=== PATIENT | male | born 1970 | race American Indian/Alaskan Native ===

== ENCOUNTER 2018-01-11 20:49 | Emergency (ER) | payer OTHER, SELFPAY ==
[2018-01-11 20:57] VITALS: BP 123/79; PULSE 96; RESP 18; TEMP 37.4; O2SAT 99; BMI 46.7
--- NOTE | 2018-01-11 21:05 | DI.RAD.S_ITS ---
PROCEDURE: XR RIBS RT MIN 3V W CXR 1V INDICATIONS: Pain injury anterior TECHNIQUE: 5 views of the left ribs were acquired, along with a single view chest. COMPARISON: None. FINDINGS: Surgical changes and devices: None. Bones and chest wall: No fractures or dislocations. No suspicious bony lesions. Overlying soft tissues appear unremarkable. Lungs and pleura: No pleural effusions or pneumothorax. Lungs appear clear. Mediastinum: Mediastinal contours appear normal. Heart size is normal. IMPRESSION: No acute cardiopulmonary findings. No displaced rib fractures visualized. Dictated by: Anna Ricks M.D. on 01/11/2018 at 21:46 Approved by: Anna Ricks M.D. on 01/11/2018 at 21:47
--- NOTE | 2018-01-11 21:07 | PC.NURSE ---
Respiratory assessment limited by body habitus. Pt reports left rib pain, worse with inspiration, with [place]- resolves with rest. pt reports he fell against the side of his boat today and injured his rib. Area is tender to palp. Deformity palpated.
[2018-01-11] MEDS: KETOROLAC 60 MG/2 ML VIAL IM (21:17)
--- NOTE | 2018-01-11 21:29 | ED_ITS ---
HPI - Back Pain/Injury General Chief Complaint: Back Pain/Injury Stated Complaint: RIB pain, heard a crunch sound today Time Seen by Provider: 01/11/18 20:59 Source: patient and RN notes reviewed Mode of arrival: ambulatory History of Present Illness HPI Narrative: Patient is a 48-year-old male who presents with left-sided rib pain. He was fishing today when he leaned over the boat pulling up a 25 lb [place] when he heard something pop. It hurts in 1 space every time he moves or breathes. No shortness of breath but does hurt when he takes a deep breath. Onset (ago): hour(s) Duration: constant Severity: moderate Quality: sharp Radiation: none Exacerbating factors: movement Related Data Home Medications Medication Instructions Recorded Confirmed lisinopril 5 mg PO QDAY #0 03/19/17 simvastatin 10 mg PO QDAY #0 03/19/17 insulin aspart U-100 [Novolog 25 unit SQ BID #0 09/02/17 Flexpen U-100 Insulin] insulin glargine [Lantus Solostar 30 unit SQ BID #0 09/02/17 U-100 Insulin] loratadine 10 mg PO QDAY #0 09/02/17 metformin [Glucophage XR] 3 tab PO QDAY #0 09/02/17 Previous Rx's Medication Instructions Recorded clindamycin HCl 300 mg PO QID #40 cap 11/10/17 hydrocodone-acetaminophen [[place]] 1 - 2 tab PO Q6HP PRN #10 tab 11/10/17 Allergies Allergy/AdvReac Type Severity Reaction Status Date / Time celecoxib [CELECOXIB] AdvReac Mild MADE MY Verified 01/11/18 20:58 HEART HURT Review of Systems Review of Systems All systems reviewed & are unremarkable except as noted in HPI and below Constitutional Denies chills, Denies fever(s), Denies lethargy and Denies weakness Cardiovascular Denies chest pain, Denies irregular heart rhythm, Denies lightheadedness, Denies palpitations, Denies dyspnea on exertion and Denies orthopnea Respiratory Reports as per HPI, Denies excessive phlegm production, Reports pain on inspiration and Denies dyspnea on exertion Gastrointestinal Gastrointestinal: Denies abdominal pain, Denies change in bowel habits, Denies diarrhea, Denies nausea and Denies vomiting Musculoskeletal Denies back pain, Denies muscle weakness, Denies numbness and Denies tingling Neurologic Denies numbness, Denies tingling and Denies weakness Endocrine Denies palpitations Exam Const General: cooperative and well developed Nutritional Appearance: obese Orientation: alert, awake, oriented x3 and not confused Chest Chest: No crepitus, localized rib tenderness with anteroposterior compression ( Just under the nipple) and No mass Breast inspection: normal inspection of the breasts Resp Effort & Inspection: normal respiratory effort, able to speak in complete sentences, no respiratory distress and no use of accessory muscles Auscultation: clear to auscultation bilaterally, no rales, no rhonchi and no wheezes Cardio Rate: regular rate Rhythm: regular rhythm Heart Sounds: no click, no gallops, no murmurs and no rubs Pulses: normal peripheral pulses Skin General: no rashes or lesions noted, No jaundice and No petechiae Neuro General: alert, oriented x3, gait normal and no focal motor deficits Cranial Nerves: CN's II-XI intact bilaterally Speech: speech normal Motor: strength 5/5 throughout Sensory Exam: no sensory deficits noted MDM - Back Pain/Injury MDM Narrative Medical decision making narrative: Patient had a distinct instance where he started having left-sided rib pain worse with movement. He x-ray is negative. Thought to be traumatic and rib sprain or contusion rather than cardiac. Imaging Data rib x ray: Radiologist's impression: PROCEDURE: XR RIBS RT MIN 3V W CXR 1V INDICATIONS: Pain injury anterior TECHNIQUE: 5 views of the left ribs were acquired, along with a single view chest. COMPARISON: None. FINDINGS: Surgical changes and devices: None. Bones and chest wall: No fractures or dislocations. No suspicious bony lesions. Overlying soft tissues appear unremarkable. Lungs and pleura: No pleural effusions or pneumothorax. Lungs appear clear. Mediastinum: Mediastinal contours appear normal. Heart size is normal. IMPRESSION: No acute cardiopulmonary findings. No displaced rib fractures visualized. Course Orders Ordered: ED Orders 01/11/18 21:05 XR ribs RT min 3V w CXR1V Stat Discontinued Medications Ketorolac Tromethamine (Toradol) 60 mg IM NOW ONE Stop: 01/11/18 21:06 Last Admin: 01/11/18 21:17 Dose: 60 mg Last Vital Signs Temp 99.4 F 01/11/18 20:57 Pulse 96 H 01/11/18 22:14 Resp 18 01/11/18 22:14 BP 128/85 H 01/11/18 22:14 Pulse Ox 98 01/11/18 22:14 Discharge Plan Departure Patient Disposition: Home, Self-Care Clinical Impression: Contusion of rib on left side Discharge Date/Time: 01/11/18 22:15 Interventions: ED Discharge Assessment Last Done: 01/11/18 22:14 Instructions: DI for Rib Contusion Activity Restrictions/Additional Instructions: *You have been diagnosed with rib contusion *What to do: Try ice or heat, increase activity as tolerated *Take medications as directed *Follow up with your primary care provider in 2-3 days *Return to ER if you should have increasing chest pain, shortness of breath or any new, worsening or concerning symptoms Prescriptions: No Action simvastatin 10 MG tablet 10 mg PO QDAY Qty: 0 RF: 0 lisinopril 5 MG tablet 5 mg PO QDAY Qty: 0 RF: 0 loratadine 10 MG tablet 10 mg PO QDAY Qty: 0 RF: 0 insulin aspart U-100 [Novolog Flexpen U-100 Insulin] 100 UNIT/1 ML insulin pen 25 unit SQ BID Qty: 0 RF: 0 metformin [Glucophage XR] 750 MG tablet extended release 24 hr 3 tab PO QDAY Qty: 0 RF: 0 insulin glargine [Lantus Solostar U-100 Insulin] 100 UNIT/1 ML insulin pen 30 unit SQ BID Qty: 0 RF: 0 clindamycin HCl 300 MG capsule 300 mg PO QID Qty: 40 RF: 0 hydrocodone-acetaminophen [[place]] 5 MG/325 MG tablet 1 - 2 tab PO Q6HP PRNQty: 10 RF: 0 Referrals: Yvette Ellis PA-C [Primary Care Provider] -
[2018-01-11 22:14] VITALS: BP 128/85; PULSE 96; RESP 18; O2SAT 98
== END 2018-01-11 22:15 | disposition home or self-care (01) ==
PROVIDERS: Emergency Provider Emergency Medicine; Family Provider Physician Assistant; PCP Physician Assistant
DX: S20.219A Contusion of unspecified front wall of thorax, initial encounter (principal); X58.XXXA Exposure to other specified factors, initial encounter
CPT/HCPCS: 71101; 96372; 99282; 99283; J1885

== ENCOUNTER 2018-07-05 18:37 | Emergency (ER) | payer OTHER, SELFPAY ==
--- NOTE | 2018-07-05 18:47 | ED.GENADULT ---
HPI - General Adult General Stated complaint: wants his sugars checked out Time Seen by Provider: 07/05/18 18:46 Related Data Home Medications Medication Instructions Recorded Confirmed lisinopril 5 mg PO QDAY #0 03/19/17 simvastatin 10 mg PO QDAY #0 03/19/17 insulin aspart U-100 [Novolog 25 unit SQ BID #0 09/02/17 Flexpen U-100 Insulin] insulin glargine [Lantus Solostar 30 unit SQ BID #0 09/02/17 U-100 Insulin] loratadine 10 mg PO QDAY #0 09/02/17 metformin [Glucophage XR] 3 tab PO QDAY #0 09/02/17 Previous Rx's Medication Instructions Recorded clindamycin HCl 300 mg PO QID #40 cap 11/10/17 hydrocodone-acetaminophen [[place]] 1 - 2 tab PO Q6HP PRN #10 tab 11/10/17 Allergies Allergy/AdvReac Type Severity Reaction Status Date / Time celecoxib [CELECOXIB] AdvReac Mild MADE MY Verified 01/11/18 20:58 HEART HURT Discharge Plan Departure Prescriptions: No Action simvastatin 10 MG tablet 10 mg PO QDAY Qty: 0 RF: 0 lisinopril 5 MG tablet 5 mg PO QDAY Qty: 0 RF: 0 loratadine 10 MG tablet 10 mg PO QDAY Qty: 0 RF: 0 insulin aspart U-100 [Novolog Flexpen U-100 Insulin] 100 UNIT/1 ML insulin pen 25 unit SQ BID Qty: 0 RF: 0 metformin [Glucophage XR] 750 MG tablet extended release 24 hr 3 tab PO QDAY Qty: 0 RF: 0 insulin glargine [Lantus Solostar U-100 Insulin] 100 UNIT/1 ML insulin pen 30 unit SQ BID Qty: 0 RF: 0 clindamycin HCl 300 MG capsule 300 mg PO QID Qty: 40 RF: 0 hydrocodone-acetaminophen [[place]] 5 MG/325 MG tablet 1 - 2 tab PO Q6HP PRNQty: 10 RF: 0
[2018-07-05 18:49] VITALS: BP 131/97; PULSE 92; RESP 18; TEMP 37.1; O2SAT 98; BMI 46.7
--- NOTE | 2018-07-05 18:50 | ED.GENADULT ---
HPI - General Adult <Princess Meza PA-C - Last Filed: 07/05/18 21:57> General Chief complaint: Diabetic Problem Stated complaint: wants his sugars checked out Time Seen by Provider: 07/05/18 18:46 Source: patient Mode of arrival: ambulatory Limitations: no limitations History of Present Illness HPI narrative: Tis 48 year old male with insulin-dependent diabetes states he came in to have his blood sugars checked today at his 's insistence. He states that he has had diabetes for about 8 years, generally well controlled with blood sugars in the 160s-190s range on metformin and insulin. He states that after he got his flu shot 2 weeks ago, he began have itchy throat, congestion and cough along with fatigue and elevated blood sugars despite taking his usual medications. He states his blood sugars have generally been in the 300 range at home. He states that the upper respiratory symptoms have gotten better, however the fatigue has not, and today his blood sugar at home was 578 and his wanted him to get this checked. He states that he has been eating and drinking normally. He states he has had urinary frequency and it seems like it is more difficult to read at times. He states that in the last couple of weeks he has occasionally felt like he has a knot in his abdomen, no nausea or vomiting, no pain currently. He denies any chest pain, dyspnea, new pain or swelling in the extremities, or other new complaints on systems review Related Data Home Medications Medication Instructions Recorded Confirmed lisinopril 5 mg PO QDAY #0 03/19/17 simvastatin 10 mg PO QDAY #0 03/19/17 insulin aspart U-100 [Novolog 25 unit SQ BID #0 09/02/17 Flexpen U-100 Insulin] insulin glargine [Lantus Solostar 30 unit SQ BID #0 09/02/17 U-100 Insulin] loratadine 10 mg PO QDAY #0 09/02/17 metformin [Glucophage XR] 3 tab PO QDAY #0 09/02/17 Previous Rx's Medication Instructions Recorded clindamycin HCl 300 mg PO QID #40 cap 11/10/17 hydrocodone-acetaminophen [[place]] 1 - 2 tab PO Q6HP PRN #10 tab 11/10/17 Allergies Allergy/AdvReac Type Severity Reaction Status Date / Time celecoxib [CELECOXIB] AdvReac Mild MADE MY Verified 01/11/18 20:58 HEART HURT Review of Systems <Princess Meza PA-C - Last Filed: 07/05/18 21:57> Review of Systems All systems reviewed & are unremarkable except as noted in HPI and below PFSH <Princess Meza PA-C - Last Filed: 07/05/18 21:57> Comment: previous heavy ETOH, none currently, denies street drugs Exam <Princess Meza PA-C - Last Filed: 07/05/18 21:57> Narrative Exam Narrative: GENERAL APPEARANCE: Patient sitting comfortably, in no distress. HEAD: No sinus TTP. EYES: PERRL, EOMI. EARS: Normal auditory canals, TMS intact with dull light reflexes. ORAL CAVITY: Normal oropharynx. THROAT: PND noted NECK/THYROID: Neck supple, full range of motion, no cervical lymphadenopathy. LUNGS: Clear to auscultation bilaterally, no cough on exam. HEART: RRR without murmur, nl S1, S2, no S3 or S4. ABDOMEN: Soft, nontender, nondistended, +bowel sounds x4 quadrants EXTREMITIES: No edema, no calf tenderness Initial Vital Signs Initial Vital Signs: Vital Signs Temperature 98.8 F 07/05/18 18:49 Pulse Rate 92 H 07/05/18 18:49 Respiratory Rate 18 07/05/18 18:49 Blood Pressure 131/97 H 07/05/18 18:49 Pulse Oximetry 98 07/05/18 18:49 <Jordy Ledezma DO - Last Filed: 07/05/18 22:33> Initial Vital Signs Initial Vital Signs: Vital Signs Temperature 98.8 F 07/05/18 18:49 Pulse Rate 92 H 07/05/18 18:49 Respiratory Rate 18 07/05/18 18:49 Blood Pressure 131/97 H 07/05/18 18:49 Pulse Oximetry 98 07/05/18 18:49 Course <AMANDA Cordero Last Filed: 07/05/18 21:57> Additional Information: Patient does not appear to be in DKA, and is feeling significantly improved after fluids. He normally has reasonably controlled blood sugars but they have been elevated in the setting of this upper respiratory infection for the last couple of weeks. The respiratory symptoms are improved. He will continue his usual medicines and contact his PCP 1st thing in the morning to arrange follow-up tomorrow. He agrees to return if feeling acutely worse again Orders Ordered: ED Orders 07/05/18 19:20 Basic Metabolic Panel Stat Complete Blood Count AUTO DIFF Stat Ketones (Beta-Hydroxybutyrate) Stat Discontinued Medications Sodium Chloride (Normal Saline 0.9%) 1,000 mls @ 1,000 mls/hr IV BOLUS ONE Stop: 07/05/18 19:47 Last Infusion: 07/05/18 20:33 Dose: 0 mls/hr Admin: 07/05/18 19:26 Dose: 1,000 mls/hr Sodium Chloride (Normal Saline 0.9%) 1,000 mls @ 1,000 mls/hr IV BOLUS ONE Stop: 07/05/18 19:51 Last Admin: 07/05/18 20:33 Dose: 1,000 mls/hr Vital Signs - 8 hr 07/05/18 18:49 07/05/18 21:10 Temperature 98.8 F Pulse Rate 92 H 78 Respiratory Rate 18 18 Blood Pressure 131/97 H Blood Pressure [Left Arm] 146/98 H Pulse Oximetry 98 99 <Jordy Ledezma DO - Last Filed: 07/05/18 22:33> Orders Ordered: ED Orders 07/05/18 19:20 Basic Metabolic Panel Stat Complete Blood Count AUTO DIFF Stat Ketones (Beta-Hydroxybutyrate) Stat Discontinued Medications Sodium Chloride (Normal Saline 0.9%) 1,000 mls @ 1,000 mls/hr IV BOLUS ONE Stop: 07/05/18 19:47 Last Infusion: 07/05/18 20:33 Dose: 0 mls/hr Admin: 07/05/18 19:26 Dose: 1,000 mls/hr Sodium Chloride (Normal Saline 0.9%) 1,000 mls @ 1,000 mls/hr IV BOLUS ONE Stop: 07/05/18 19:51 Last Admin: 07/05/18 20:33 Dose: 1,000 mls/hr Vital Signs - 8 hr 07/05/18 18:49 07/05/18 21:10 Temperature 98.8 F Pulse Rate 92 H 78 Respiratory Rate 18 18 Blood Pressure 131/97 H Blood Pressure [Left Arm] 146/98 H Pulse Oximetry 98 99 Medical Decision Making <Princess Meza PA-C - Last Filed: 07/05/18 21:57> Lab Data Lab results reviewed: Yes I reviewed the patient's lab results. Result diagrams: 07/05/18 19:20 07/05/18 19:20 Lab Results 07/05/18 07/05/18 Range/Units 19:20 19:20 WBC 6.9 (4.5-11.0) X10^3/uL RBC 5.80 (4.5-5.9) X10^6/uL Hgb 16.1 (13.5-17.5) g/dL Hct 46.8 (41-53) % MCV 80.7 (80-100) fL MCH 27.8 (26-34) PG MCHC 34.4 (30-36) % RDW 14.3 (11.6-14.8) % Plt Count 239 (150-400) X10^3/uL Neut % (Auto) 70.3 (50-75) % Lymph % (Auto) 21.7 L (25-40) % [place] % (Auto) 5.7 (3-14) % Eos % (Auto) 1.5 L (2-4) % Baso % (Auto) 0.8 (0-2) % Neut # (Auto) 4800 (7514-9428) /uL Sodium 136 L (137-145) mmol/L Potassium 3.8 (3.4-5.1) mmol/L Chloride 97 L (98-107) mmol/L Carbon Dioxide 24 (22-32) mmol/L BUN 13 (9-20) mg/dL Creatinine 0.70 (0.66-1.25) mg/dL Estimated GFR > 60.0 (>60) mL/min BUN/Creatinine Ratio 18.6 (6-22) Glucose 533 H* (70-100) mg/dL Calcium 9.2 (8.4-10.2) mg/dL Ketones 0.19 (<0.27) mmol/L Point of Care Testing Glucose POC 339 Urine Dip Bedside Urine Glucose 1000 mg/dl Bedside Urine Bilirubin - Negative Bedside Urine Ketone - Negative Urine Specific [place] 1.010 Bedside Urine Occult Blood - Negative Bedside Urine pH 6.0 Bedside Urine Protein - Negative Bedside Urine Urobilinogen - Negative Bedside Urine Nitrite - Negative Bedside Urine Leukocytes - Negative Esterase Point of care testing: Point of Care Testing Glucose POC 339 Urine Dip Bedside Urine Glucose 1000 mg/dl Bedside Urine Bilirubin - Negative Bedside Urine Ketone - Negative Urine Specific [place] 1.010 Bedside Urine Occult Blood - Negative Bedside Urine pH 6.0 Bedside Urine Protein - Negative Bedside Urine Urobilinogen - Negative Bedside Urine Nitrite - Negative Bedside Urine Leukocytes - Negative Esterase <Jordy Ledezma, DO - Last Filed: 07/05/18 22:33> Lab Data Lab Results 07/05/18 07/05/18 Range/Units 19:20 19:20 WBC 6.9 (4.5-11.0) X10^3/uL RBC 5.80 (4.5-5.9) X10^6/uL Hgb 16.1 (13.5-17.5) g/dL Hct 46.8 (41-53) % MCV 80.7 (80-100) fL MCH 27.8 (26-34) PG MCHC 34.4 (30-36) % RDW 14.3 (11.6-14.8) % Plt Count 239 (150-400) X10^3/uL Neut % (Auto) 70.3 (50-75) % Lymph % (Auto) 21.7 L (25-40) % [place] % (Auto) 5.7 (3-14) % Eos % (Auto) 1.5 L (2-4) % Baso % (Auto) 0.8 (0-2) % Neut # (Auto) 4800 (3931-9455) /uL Sodium 136 L (137-145) mmol/L Potassium 3.8 (3.4-5.1) mmol/L Chloride 97 L (98-107) mmol/L Carbon Dioxide 24 (22-32) mmol/L BUN 13 (9-20) mg/dL Creatinine 0.70 (0.66-1.25) mg/dL Estimated GFR > 60.0 (>60) mL/min BUN/Creatinine Ratio 18.6 (6-22) Glucose 533 H* (70-100) mg/dL Calcium 9.2 (8.4-10.2) mg/dL Ketones 0.19 (<0.27) mmol/L Point of Care Testing Glucose POC 339 Urine Dip Bedside Urine Glucose 1000 mg/dl Bedside Urine Bilirubin - Negative Bedside Urine Ketone - Negative Urine Specific [place] 1.010 Bedside Urine Occult Blood - Negative Bedside Urine pH 6.0 Bedside Urine Protein - Negative Bedside Urine Urobilinogen - Negative Bedside Urine Nitrite - Negative Bedside Urine Leukocytes - Negative Esterase Point of care testing: Point of Care Testing Glucose POC 339 Urine Dip Bedside Urine Glucose 1000 mg/dl Bedside Urine Bilirubin - Negative Bedside Urine Ketone - Negative Urine Specific [place] 1.010 Bedside Urine Occult Blood - Negative Bedside Urine pH 6.0 Bedside Urine Protein - Negative Bedside Urine Urobilinogen - Negative Bedside Urine Nitrite - Negative Bedside Urine Leukocytes - Negative Esterase Discharge Plan Departure Patient Disposition: Home Clinical Impression: Hyperglycemia without ketosis Discharge Date/Time: 07/05/18 21:45 Interventions: ED Discharge Assessment Last Done: 07/05/18 21:44 Instructions: DI for Hyperglycemia -- Adult Activity Restrictions/Additional Instructions: Your blood sugars were significantly elevated today, though better after you had fluids. This is not uncommon with an acute illness such as the respiratory infection that you have had recently. Please continue your usual diabetes medicines tonight, drink plenty of fluids, and call your PCP office 1st thing in the morning. Let them know that you were seen in the emergency room with very high blood sugars in the 500 range, and need to be seen for follow-up tomorrow. You may need adjustments in your insulin and will need monitoring of these changes as you continued to feel better. You should return here as we talked about if you are feeling acutely worse again in the interim Prescriptions: No Action simvastatin 10 MG tablet 10 mg PO QDAY Qty: 0 RF: 0 lisinopril 5 MG tablet 5 mg PO QDAY Qty: 0 RF: 0 loratadine 10 MG tablet 10 mg PO QDAY Qty: 0 RF: 0 insulin aspart U-100 [Novolog Flexpen U-100 Insulin] 100 UNIT/1 ML insulin pen 25 unit SQ BID Qty: 0 RF: 0 metformin [Glucophage XR] 750 MG tablet extended release 24 hr 3 tab PO QDAY Qty: 0 RF: 0 insulin glargine [Lantus Solostar U-100 Insulin] 100 UNIT/1 ML insulin pen 30 unit SQ BID Qty: 0 RF: 0 clindamycin HCl 300 MG capsule 300 mg PO QID Qty: 40 RF: 0 hydrocodone-acetaminophen [[place]] 5 MG/325 MG tablet 1 - 2 tab PO Q6HP PRNQty: 10 RF: 0 Referrals: Rachael Charles MD [Non-Staff] - <Jordy Ledezma DO - Last Filed: 07/05/18 22:33> Cosign ED Attending Costatyanaature Attestation: I was available for consultation during this patient's emergency department encounter
[2018-07-05] MEDS: SODIUM CHLORIDE 0.9% 1,000 ML 1000 ML IV ×2 (19:26→20:33)
[2018-07-05 19:27] LABS: Add Manual Diff / Slide Review NO; Basophils Percent Auto 0.8 % (0-2); Eosinophils Percent Auto 1.5 % (2-4); Hematocrit 46.8 % (41-53); Hemoglobin 16.1 g/dL (13.5-17.5); Lymphocytes Percent Auto 21.7 % (25-40); Mean Corpuscular HGB Conc 34.4 % (30-36); Mean Corpuscular Hemoglobin 27.8 PG (26-34); Mean Corpuscular Volume 80.7 fL (80-100); Monocytes Percent Auto 5.7 % (3-14); Neutrophils Absolute Auto 4800 /uL (3000-5900); Neutrophils Percent Auto 70.3 % (50-75); Platelet Count 239 X10^3/uL (150-400); Red Cell Distribution Width 14.3 % (11.6-14.8); White Blood Cell Count 6.9 X10^3/uL (4.5-11.0)
[2018-07-05 19:36] LABS: BUN Creatinine Ratio 18.6 (6-22); Blood Urea Nitrogen 13 mg/dL (9-20); Calcium 9.2 mg/dL (8.4-10.2); Carbon Dioxide 24 mmol/L (22-32); Chloride 97 mmol/L (98-107); Estimated Glomerular Filt Rate > 60.0 mL/min (>60); Potassium 3.8 mmol/L (3.4-5.1); Sodium 136 mmol/L (137-145)
[2018-07-05 19:39] LABS: Ketones (Beta-Hydroxybutyrate) 0.19 mmol/L (<0.27)
[2018-07-05 19:44] LABS: HEMOLYSIS 25 (0-50)
[2018-07-05 19:46] LABS: Glucose 533 mg/dL (70-100)
--- NOTE | 2018-07-05 19:58 | PC.NURSE ---
Pt directed to keep arm straight. only 200 of 1000ml infused in last hour. Pt and Pt daughter aware and will keep arm straight
[2018-07-05 21:10] VITALS: BP 146/98; PULSE 78; RESP 18; O2SAT 99
== END 2018-07-05 21:45 | disposition home or self-care (01) ==
PROVIDERS: Emergency Medicine; Emergency Provider Internal Medicine; Family Provider Physician Assistant; PCP Physician Assistant
DX: E10.65 Type 1 diabetes mellitus with hyperglycemia (principal); Z79.4 Long term (current) use of insulin
CPT/HCPCS: 36591; 80048; 81003; 82009; 82962; 85025; 96360; 99283; 99284

== ENCOUNTER 2018-07-19 11:17 | Emergency (ER) | payer OTHER, SELFPAY ==
[2018-07-19 11:31] VITALS: BP 125/86; PULSE 88; RESP 18; TEMP 37; O2SAT 97; BMI 48.1
--- NOTE | 2018-07-19 12:05 | ED_ITS ---
HPI - URI/Sore Throat <Princess Meza PA-C - Last Filed: 07/19/18 18:59> General Chief Complaint: Upper Respiratory Symptoms Stated Complaint: 4day sore throat, difficulty swallowing, body ache Time Seen by Provider: 07/19/18 12:03 Source: patient Mode of arrival: ambulatory Limitations: no limitations History of Present Illness HPI Narrative: This 48-year-old male complains of 5 day history of a scratchy throat which has become increasingly sore to the point he is having a hard time swallowing solids. He states that it also hurts his ears to swallow. He states that 4 days ago he developed chills, shakes, and body aches along with fatigue. He has not taken his temperature. He states that he has some nasal congestion but no sinus pain. He has started to get a little bit of dry cough, denies any wheeze or dyspnea. He denies any known exposures aside from someone with the flu which was last month. He did get a flu vaccine several weeks ago. He states that he felt slightly better yesterday aside from the sore throat which has persisted and gotten worse. He admits that he has not checked his glucose in the last 3 days, states he has been taking his medicines. He last checked his glucose night and was 378. He admits that he has not followed up with his PCP since last seen here. Related Data Home Medications Medication Instructions Recorded Confirmed lisinopril 5 mg PO QDAY #0 03/19/17 simvastatin 10 mg PO QDAY #0 03/19/17 insulin aspart U-100 [Novolog 25 unit SQ BID #0 09/02/17 Flexpen U-100 Insulin] insulin glargine [Lantus Solostar 30 unit SQ BID #0 09/02/17 U-100 Insulin] loratadine 10 mg PO QDAY #0 09/02/17 metformin [Glucophage XR] 3 tab PO QDAY #0 09/02/17 Previous Rx's Medication Instructions Recorded clindamycin HCl 300 mg PO QID #40 cap 11/10/17 hydrocodone-acetaminophen [[place]] 1 - 2 tab PO Q6HP PRN #10 tab 11/10/17 amoxicillin 500 mg PO Q12H #20 cap 07/19/18 Allergies Allergy/AdvReac Type Severity Reaction Status Date / Time celecoxib [CELECOXIB] AdvReac Mild MADE MY Verified 07/19/18 11:35 HEART HURT Review of Systems <Princess Meza PA-C - Last Filed: 07/19/18 18:59> Review of Systems All systems reviewed & are unremarkable except as noted in HPI and below Exam <Princess Meza PA-C - Last Filed: 07/19/18 18:59> Narrative Exam Narrative: GENERAL APPEARANCE: Patient sitting comfortably, in no distress. HEAD: No sinus TTP. EYES: PERRL, EOMI. EARS: Normal auditory canals, TMS intact, both are retracted with mild erythema ORAL CAVITY: Normal oropharynx. THROAT: Erythematous without exudate NECK/THYROID: Neck supple, full range of motion, no cervical lymphadenopathy. LUNGS: Clear to auscultation bilaterally, no cough on exam. HEART: RRR without murmur, nl S1, S2, no S3 or S4. EXTREMITIES: No edema, no calf tenderness DERMATOLOGIC: No exanthem Initial Vital Signs Initial Vital Signs: Vital Signs Temperature 98.6 F 07/19/18 11:31 Pulse Rate 88 07/19/18 11:31 Respiratory Rate 18 07/19/18 11:31 Blood Pressure 125/86 07/19/18 11:31 Pulse Oximetry 97 07/19/18 11:31 <Holly Russell MD - Last Filed: 07/20/18 08:02> Initial Vital Signs Initial Vital Signs: Vital Signs Temperature 98.6 F 07/19/18 11:31 Pulse Rate 88 07/19/18 11:31 Respiratory Rate 18 07/19/18 11:31 Blood Pressure 125/86 07/19/18 11:31 Pulse Oximetry 97 07/19/18 11:31 Course <Princess Meza PA-C - Last Filed: 07/19/18 18:59> Orders Ordered: ED Orders 07/19/18 11:57 Strep Grp A by PCR Rapid Stat Vital Signs - 8 hr 07/19/18 11:31 07/19/18 12:41 Temperature 98.6 F Pulse Rate 88 96 H Respiratory Rate 18 16 Blood Pressure 125/86 Blood Pressure [Right Arm] 130/93 H Pulse Oximetry 97 98 <Holly Russell MD - Last Filed: 07/20/18 08:02> Orders Ordered: ED Orders 07/19/18 11:57 Strep Grp A by PCR Rapid Stat Vital Signs - 8 hr 07/19/18 11:31 07/19/18 12:41 Temperature 98.6 F Pulse Rate 88 96 H Respiratory Rate 18 16 Blood Pressure 125/86 Blood Pressure [Right Arm] 130/93 H Pulse Oximetry 97 98 MDM - URI/Sore Throat <Princess Meza PA-C - Last Filed: 07/19/18 18:59> Lab Data Attestation: I reviewed the patient's lab results. Point of Care Testing Rapid Strep A Positive Glucose POC 246 <Holly Russell MD - Last Filed: 07/20/18 08:02> Lab Data Point of Care Testing Rapid Strep A Positive Glucose POC 246 Discharge Plan Departure Patient Disposition: Home Clinical Impression: Strep throat, Uncontrolled diabetes mellitus Discharge Date/Time: 07/19/18 12:42 Interventions: ED Discharge Assessment Last Done: 07/19/18 12:42 Instructions: DI for Strep Throat Activity Restrictions/Additional Instructions: Your test for strep throat was positive today. This is a bacterial infection that needs treatment with antibiotics. Please go pick these up and take the 1st dose immediately. Please avoid close contacts and work until you have been on antibiotics for 48 hr and start to feel better. You should return if you have acutely worsening symptoms such as feeling like your throat is so swollen that you cannot breathe or manage your saliva. Please take your usual over-the- counter pain medicine as needed and you can add sugar free lozenges or sprays to help with your throat. As we talked about again, it is extremely important that you get back to your primary care provider for follow-up on your diabetes and blood sugars. Please call 1st thing tomorrow and arrange a follow-up, and monitor your blood sugars in the interim to review at that appointment. Prescriptions: New amoxicillin 500 mg capsule 500 mg PO Q12H Qty: 20 RF: 0 No Action simvastatin 10 MG tablet 10 mg PO QDAY Qty: 0 RF: 0 lisinopril 5 MG tablet 5 mg PO QDAY Qty: 0 RF: 0 loratadine 10 MG tablet 10 mg PO QDAY Qty: 0 RF: 0 insulin aspart U-100 [Novolog Flexpen U-100 Insulin] 100 UNIT/1 ML insulin pen 25 unit SQ BID Qty: 0 RF: 0 metformin [Glucophage XR] 750 MG tablet extended release 24 hr 3 tab PO QDAY Qty: 0 RF: 0 insulin glargine [Lantus Solostar U-100 Insulin] 100 UNIT/1 ML insulin pen 30 unit SQ BID Qty: 0 RF: 0 clindamycin HCl 300 MG capsule 300 mg PO QID Qty: 40 RF: 0 hydrocodone-acetaminophen [[place]] 5 MG/325 MG tablet 1 - 2 tab PO Q6HP PRNQty: 10 RF: 0 Referrals: Yvette Ellis PA-C [Primary Care Provider] -
[2018-07-19 12:41] VITALS: BP 130/93; PULSE 96; RESP 16; O2SAT 98
== END 2018-07-19 12:42 | disposition home or self-care (01) ==
PROVIDERS: Emergency Provider Internal Medicine; Family Provider Physician Assistant; PCP Physician Assistant
DX: J02.0 Streptococcal pharyngitis (principal); E11.65 Type 2 diabetes mellitus with hyperglycemia
CPT/HCPCS: 82962; 87880; 99282; 99283

== ENCOUNTER 2018-09-01 00:35 | Emergency (ER) | payer OTHER, SELFPAY ==
[2018-09-01 00:59] VITALS: BP 127/96; PULSE 112; RESP 18; TEMP 36.4; O2SAT 99; BMI 46.7
--- NOTE | 2018-09-01 01:02 | DI.RAD.S_ITS ---
PROCEDURE: XR FOOT LT MIN 3V INDICATIONS: crushed toes beneath foot, unable to wiggle toes, pain TECHNIQUE: 3 views of the foot were acquired. COMPARISON: [facility], , FOOT 3V LEFT, 02/16/2013, 17:41. FINDINGS: Intra-articular fracture of proximal phalanx of the great toe, extending to the great toe interphalangeal joint. Possible nondisplaced fracture involving the distal phalanx of the great toe however this is not confirmed on all views. Linear radiopaque foreign bodies grossly unchanged projecting in the soft tissues of the second and third toes, since 02/16/13. Chronic appearing ununited osteophyte at the base of the second toe proximal phalanx. Diffuse MTP joint spurring. IMPRESSION: Intra-articular impacted fracture involving the proximal phalanx of the great toe. Possible nondisplaced fracture involving the medial aspect of the base of the distal phalanx of the great toe however technically indeterminate as above. Dictated by: Tony Pittman M.D. on 09/01/2018 at 10:12 Approved by: Tony Pittman M.D. on 09/01/2018 at 10:15
[2018-09-01 01:39] VITALS: BP 110/85; PULSE 99; RESP 18; O2SAT 97
--- NOTE | 2018-09-01 02:00 | ED_ITS ---
HPI - Extremity Injury (Lower) General Chief Complaint: Extremity Injury, Lower Stated Complaint: LEFT FOOT INJURY THINKS HE BROKE 3 TOES Time Seen by Provider: 09/01/18 01:44 Source: patient Mode of arrival: ambulatory Limitations: no limitations History of Present Illness HPI Narrative: Patient states he tripped and caught his left foot, coming down on the dorsum of his flexed toes. He states he is having a lot of pain in the dorsum of his foot, as well as his toes. Patient denies any other injuries. No ankle injury. No knee or hip injury on that side. No injury to the other foot. Patient states he is otherwise feeling fine. The injury happened today. States because of pain, he has not been able to bear weight on the injured area. Pain is a 10/10. Bearing weight or pressure makes it worse; nothing makes it better. Related Data Home Medications Medication Instructions Recorded Confirmed lisinopril 5 mg PO QDAY #0 03/19/17 simvastatin 10 mg PO QDAY #0 03/19/17 insulin aspart U-100 [Novolog 25 unit SQ BID #0 09/02/17 Flexpen U-100 Insulin] insulin glargine [Lantus Solostar 30 unit SQ BID #0 09/02/17 U-100 Insulin] loratadine 10 mg PO QDAY #0 09/02/17 metformin [Glucophage XR] 3 tab PO QDAY #0 09/02/17 Previous Rx's Medication Instructions Recorded clindamycin HCl 300 mg PO QID #40 cap 11/10/17 hydrocodone-acetaminophen [Early] 1 - 2 tab PO Q6HP PRN #10 tab 11/10/17 amoxicillin 500 mg PO Q12H #20 cap 07/19/18 oxycodone-acetaminophen [Percocet] 2 tab PO Q4-6H PRN #30 tab 09/01/18 Allergies Allergy/AdvReac Type Severity Reaction Status Date / Time celecoxib [CELECOXIB] AdvReac Mild MADE MY Verified 07/19/18 11:35 HEART HURT Review of Systems Review of Systems All systems reviewed & are unremarkable except as noted in HPI and below Constitutional Denies chills, Denies fever(s), Denies lethargy and Denies weakness Eyes Denies change in vision, Denies eye discharge, Denies irritation and Denies loss of vision ENT Ears, Nose, Mouth, and Throat: Denies change in voice, Denies neck pain and Denies sore throat Cardiovascular Denies chest pain, Denies irregular heart rhythm, Denies lightheadedness, Denies palpitations, Denies dyspnea, Denies dyspnea on exertion and Denies orthopnea Respiratory Denies cough, Denies dyspnea, Denies dyspnea on exertion and Denies wheezing Gastrointestinal Gastrointestinal: Denies abdominal pain, Denies change in bowel habits, Denies diarrhea, Denies nausea and Denies vomiting Genitourinary Denies hematuria, Denies flank pain, Denies urinary incontinence and Denies urinary urgency Musculoskeletal Denies neck pain Comments: Left foot and toes pain Integumentary/Breasts Denies pruritus, Denies erythema, Denies rash and Denies wounds Neurologic Denies confusion, Denies loss of vision and Denies weakness Psychiatric Denies anxiety, Denies confusion, Denies depression, Denies homicidal ideation and Denies suicidal ideation Endocrine Denies palpitations Hematologic/Lymphatic Denies easy bruising Allergic/Immunologic Denies wheezing [facility] Medical History HTN (hypertension) (Chronic) Hyperlipidemia (Chronic) 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) Seasonal allergies (Chronic) Surgical History History of hip surgery (Resolved) Status post cholecystectomy (Resolved) Social History Smoking Status: Current every day smoker Exam Initial Vital Signs Initial Vital Signs: Vital Signs Temperature 97.5 F L 09/01/18 00:59 Pulse Rate 112 H 09/01/18 00:59 Respiratory Rate 18 09/01/18 00:59 Blood Pressure 127/96 H 09/01/18 00:59 Pulse Oximetry 99 09/01/18 00:59 Const General: cooperative and well developed Nutritional Appearance: well nourished Orientation: alert, awake, oriented x3 and not confused HENMT Head: normocephalic and atraumatic Ears: external ears normal Nose: external nose normal and No nasal discharge Face and sinus: face symmetric and No dry mucous membranes Mouth: oral mucosae normal and moist mucous membranes Teeth and gingiva: dentition normal Eyes General: appearance normal, both eyes and all related structures Eyelids: eyelids normal Conjunctivae: conjunctivae normal Sclera: sclerae normal Pupils: PERRL EOM: EOM intact bilaterally Neck Neck: normal visual inspection, trachea midline, No lymphadenopathy, No midline deformity and No JVD Lymphatic: No lymphedema Chest Chest: normal inspection of the chest Resp Effort & Inspection: normal respiratory effort, able to speak in complete sentences, no respiratory distress and no use of accessory muscles Auscultation: clear to auscultation bilaterally, no rales, no rhonchi and no wheezes Cardio Rate: regular rate Rhythm: regular rhythm Heart Sounds: no click, no gallops, no murmurs and no rubs Pulses: normal peripheral pulses GI Inspection: non-distended Palpation: soft, no hepatosplenomegaly, No guarding, No pulsatile mass and No tender Auscultation: normal bowel sounds Back/Spine/Pelvis Back: No CVA tenderness Cervical Spine: cervical ROM normal and No pain with cervical ROM Thoracic/Lumbar Spine: thoracic and lumbar spine normal to inspection Skin General: no rashes or lesions noted, No jaundice and No petechiae Neuro General: alert, oriented x3, gait normal and no focal motor deficits Speech: speech normal Extrem General: full ROM, no pedal edema and no calf tenderness Left lower extremity: foot (Patient has tenderness and deformity of the left great toe, mainly involving the IP joint. Patient also has subungual hematoma of the 2nd toe on the left. No other abnormalities of the left foot or toes.) Psych Appearance: well kempt Mental Status: mental status grossly normal Attitude: cooperative Thought Content: normal and suicidality Judgment: judgment good Course Course Narrative: Foot X-rays were performed, and showed a displaced fracture of the left proximal phalanx. Patient was placed in a posterior mold splint, and I did advise him of the need to follow up in the orthopedic clinic. I have discussed with the patient that if there is any problem getting an appointment, that he should contact our department, and we will help to arrange this for him , as it is important that he does follow up. Orders Ordered: Discontinued Medications Oxycodone/Acetaminophen (Percocet 5/325) 2 tab PO NOW ONE Stop: 09/01/18 01:57 Last Admin: 09/01/18 02:14 Dose: 2 tab Vital Signs - 8 hr 09/01/18 00:59 09/01/18 01:39 Temperature 97.5 F L Pulse Rate 112 H 99 H Respiratory Rate 18 18 Blood Pressure 127/96 H Blood Pressure [Left Arm] 110/85 Pulse Oximetry 99 97 MDM - Extremity Injury (Lower) Medical Records Attestation: I reviewed the patient's medical records. Imaging Data Left foot x-ray: Attestation: I personally reviewed and interpreted this imaging study as follows: My impression: Left great toe proximal phalanx fracture Radiologist's impression: [address] [address] XRay Report Signed Patient: Augustin Carmichael MR#: [id number] : 1970 Acct:[id number] Age/Sex: 48 / M Date of Service: 09/01/18 Loc: ED Accession Number: [id number] Procedure: XR foot LT min 3V Ordering Provider: Holly Russell MD PROCEDURE: XR FOOT LT MIN 3V INDICATIONS: crushed toes beneath foot, unable to wiggle toes, pain TECHNIQUE: 3 views of the foot were acquired. COMPARISON: [facility], , FOOT 3V LEFT, 02/16/2013, 17:41. FINDINGS: Intra-articular fracture of proximal phalanx of the great toe, extending to the great toe interphalangeal joint. Possible nondisplaced fracture involving the distal phalanx of the great toe however this is not confirmed on all views. Linear radiopaque foreign bodies grossly unchanged projecting in the soft tissues of the second and third toes, since 02/16/13. Chronic appearing ununited osteophyte at the base of the second toe proximal phalanx. Diffuse MTP joint spurring. IMPRESSION: Intra-articular impacted fracture involving the proximal phalanx of the great toe. Possible nondisplaced fracture involving the medial aspect of the base of the distal phalanx of the great toe however technically indeterminate as above. Dictated by: Tony Pittman M.D. on 09/01/2018 at 10:12 Approved by: Tony Pittman M.D. on 09/01/2018 at 10:15 Discharge Plan Departure Patient Disposition: Home Clinical Impression: Fractured great toe Discharge Date/Time: 09/01/18 02:20 Interventions: ED Discharge Assessment Last Done: 09/01/18 02:18 Instructions: DI for Toe Fracture Activity Restrictions/Additional Instructions: It is very important that you follow up for the toe fracture, as it will most likely need surgery. You have been referred to the [facility]. Their on-call doctor will be notified later this morning of your need for follow-up. If you have any trouble whatsoever getting an appointment for follow-up within the next week, please do not hesitate to contact us for assistance. In the meantime, please keep weight off of the foot until cleared by the park services specialist. Prescriptions: New oxycodone-acetaminophen [Percocet] 5-325 mg tablet 2 tab PO Q4-6H PRN (Reason: pain) Qty: 30 RF: 0 No Action simvastatin 10 MG tablet 10 mg PO QDAY Qty: 0 RF: 0 lisinopril 5 MG tablet 5 mg PO QDAY Qty: 0 RF: 0 loratadine 10 MG tablet 10 mg PO QDAY Qty: 0 RF: 0 insulin aspart U-100 [Novolog Flexpen U-100 Insulin] 100 UNIT/1 ML insulin pen 25 unit SQ BID Qty: 0 RF: 0 metformin [Glucophage XR] 750 MG tablet extended release 24 hr 3 tab PO QDAY Qty: 0 RF: 0 insulin glargine [Lantus Solostar U-100 Insulin] 100 UNIT/1 ML insulin pen 30 unit SQ BID Qty: 0 RF: 0 clindamycin HCl 300 MG capsule 300 mg PO QID Qty: 40 RF: 0 hydrocodone-acetaminophen [Early] 5 MG/325 MG tablet 1 - 2 tab PO Q6HP PRNQty: 10 RF: 0 amoxicillin 500 mg capsule 500 mg PO Q12H Qty: 20 RF: 0 Referrals: [facility] [Provider Group] (Please ask specifically for the [facility] Clinic. Tell them you have been seen in the emergency department for a toe fracture that will likely need surgical repair, and that you were told you will need to be seen in the next week.)
[2018-09-01 02:11] VITALS: BP 110/85; PULSE 98; RESP 16; O2SAT 97
[2018-09-01] MEDS: OXYCODONE/ACETAMINOPHEN 5/325 TABLET 2 TAB PO (02:14)
== END 2018-09-01 02:20 | disposition home or self-care (01) ==
PROVIDERS: Emergency Provider Emergency Medicine; Family Provider Physician Assistant; PCP Physician Assistant
DX: S92.402A Displaced unspecified fracture of left great toe, initial encounter for closed fracture (principal); W18.40XA Slipping, tripping and stumbling without falling, unspecified, initial encounter
CPT/HCPCS: 29550; 73630; 99283

== ENCOUNTER 2018-09-11 12:42 | Day surgery (SDC) | payer OTHER, SELFPAY ==
[2018-09-09 09:54] VITALS: BMI 43.9
[2018-09-11] VITALS (9 sets, daily range): BP systolic 118–135; BP diastolic 62–100; PULSE 68–84; RESP 10–16; TEMP 35.8–36.3; O2SAT 92–97; BMI 43.9
--- NOTE | 2018-09-11 13:16 | PM.PREOP ---
Pre-operative Note Interval Note History & Physical reviewed/Exam performed by Physician: Yes Changes to H&P: No
--- NOTE | 2018-09-11 13:29 | SUR.PREOP ---
Pt. currently has an open area approx. 2 cm diameter on left lateral ankle, pt. started keflex 09/07/18 and continues to be on this antibiotic. Pt. also cleaning area as required (). Dr. Burden aware and visualized the area, saw no problem to d/c surgery today.
[2018-09-11] MEDS: LACTATED RINGERS 1,000 ML 42 ML IV (13:38)
--- NOTE | 2018-09-11 13:46 | PM.OP.1 ---
Operative Date/Time/Diagnoses Date of procedure: 09/11/18 Time of procedure: 14:30 Pre-op diagnosis: Closed displaced fracture left great toe S92.412A Closed fracture distal phalanx left great toe S92.425A Diabetes type 2, uncontrolled E11.65 Post-op diagnosis: same Procedure & Clinicians Procedure: 1. Open treatment, fracture, displaced comminuted proximal phalanx great toe left cpt code 30976 2. Closed treatment distal phalanx great toe left Same procedure as scheduled: Yes Indications: Patient is a 48-year-old male with uncontrolled diabetes 2 on insulin. He had a fall on [place] while retrieving fireworks and bent his left great toe and felt immediate pain deformity of the left great toe. He has been diagnosed with a comminuted intra-articular left great toe fracture. The intra-articular involvement and severe a yearly vanegas of the metaphyseal component of the fracture patient has been indicated for closed reduction versus open reduction internal fixation. Patient does have an elevated hemoglobin A1c and a in-depth discussion was had with the patient as well as the patient's primary care physician about his glucose control. Patient does realize that he is at increased risk for infection complication complications from diabetes. Hemoglobin A1c as previously been controlled but he has been poor as control lately but will work diligently towards this. He does not smoke. Risks benefits alternatives to procedure were discussed with the patient in detail including risks for infection, wound healing problems, nonunion, malunion, joint stiffness and arthritis, DVT, PE, cardiopulmonary complications and . Patient understands that with or without fixation the patient will have a relatively stiff interphalangeal joint. The patient has expressed his informed consent and the consent was signed in the office. Surgeon: Anabela Burden Click Yes if Unassisted: Yes Anesthesia Type: General and Local Operative Notes Findings: Comminuted left great toe intra-articular proximal phalanx fracture with intercondylar split. This was reduced and transfixed with 045 K-wire The distal phalanx avulsion type fracture appeared nondisplaced and was treated closed. Closure Type: primary Specimen(s): none sent Implants & Drains: 045 K-wires Estimated Blood Loss (mL): 2 Blood products transfused: none Tourniquet time (min): 43 Procedure in detail: Patient was seen in the preoperative area and his site of surgery was marked and informed consent confirmed. The patient was then brought back to the operating room by the anesthesia team placed supine on the operative table. General anesthesia was administered. All bony prominences were well padded. An SCD was placed on the contralateral leg. Well-padded tourniquet was placed on the left thigh. Left lower extremity was then prepped and draped in the standard sterile fashion, with a 3 step prep. Formal time-out procedure was performed confirming the patient's side and site of surgery presence of informed consent and administration of appropriate 3 g Ancef preoperative antibiotic. All were in agreement. A lazy-S incision was marked out over the interphalangeal joint of the left great toe. Ray-Lou was placed over this an Esmarch was used to exsanguinate the left lower extremity and the tourniquet raised to 300 mm of mercury and stayed there for approximately 43 min. Next 15 blade was used to sharply incise through the skin over the lazy-S incision was taken down to the skin and subcutaneous tissue. Then careful blunt dissection using the tenotomies to expose the IP joint. The extensor tendon was carefully isolated. To enhance exposure this was lengthened in a Z-type fashion and tagged for repair at [place] length at the end of the case. This provided excellent visualization of the IP joint. Large intercondylar split and comminuted metaphyseal fractures. Condyles were rotated and displaced with a large metaphyseal spike that was quite prominent. The fracture fragments were mobilized using a [place] and dental pick and the fracture hematoma evacuated. Dental pick was used to reduce the condylar split and a 4 5 K-wire was placed in a transverse fashion medial to lateral to hold the condylar reduction. This was evaluated under direct visualization and fluoroscopy. Next additional K-wires were utilized reduce the metaphyseal components in multiple planes. AP oblique and lateral fluoroscopy was obtained confirming appropriate reduction of the intercondylar and metaphyseal components in the AP and lateral planes. Once this was completed the wound was irrigated. The EHL was repaired at appropriate tension using a 3 0 Vicryl suture. The tourniquet was released and hemostasis achieved. 3-0 Vicryl was used to close the capsule. 4-0 Monocryl was used subcutaneously followed by 4-0 nylon in the skin. Pin ends were trimmed and bent and caps placed. Final fluoroscopy was taken confirming appropriate alignment after pin bending. Sterile dressing was placed with Xeroform gauze, Fatuma wrap and Ernesto. Patient was awoken from anesthesia and taken to the PACU in good condition. There were no immediate complications from this procedure. All counts were correct. Complications: none Condition: stable Disposition: PACU Plan for aftercare: Patient will be heel weight-bearing in a postoperative shoe on the left lower extremity. Patient will elevate above the heart level as much as possible for the 1st 2 weeks after surgery. Patient will maintain the dressing clean and dry patient will return to clinic as scheduled for wound inspection and suture removal 2-3 weeks after surgery. The wires will be maintained for 4-6 weeks.
[2018-09-11] MEDS: INSULIN REGULAR 100 UNIT/ML 3 ML VIAL 6 UNIT IV (14:21)
[2018-09-11] MEDS: CEFAZOLIN VIAL 3 GM in SODIUM CHLORIDE 0.9% 100 ML 200 ML IV (14:26)
--- NOTE | 2018-09-11 14:54 | SUR.OPER ---
Supine on padded OR bed, head on pillow, arms secured on padded arm boards at <90 degrees abduction, legs uncrossed, safety belt at thigh, tape over blanket over non operative leg. Operative leg draped free.
[2018-09-11] MEDS: BUPIVACAINE 0.25% (PF) VIAL 30 ML INJ (15:07)
[2018-09-11] MEDS: fentaNYL 100 MCG/2 ML INJ 50 MCG IV ×2 (15:59→16:18)
[2018-09-11] MEDS: HYDROMORPHONE 2 MG INJ 0.5 MG IV (16:00)
--- NOTE | 2018-09-11 16:10 | SUR.PHASEI ---
Dr Roberto at bedside. Pt c/o dyspnea and not liking how he is feeling. Pt reassured. O2 in place. Dr. Roberto notified [facility] 220, no new orders.
--- NOTE | 2018-09-11 16:12 | SUR.PHASEI ---
Report to Ray
[2018-09-11] MEDS: OXYCODONE/ACETAMINOPHEN 5/325 TABLET 1 TAB PO (16:25)
[2018-09-11] MEDS: ONDANSETRON 4 MG/2 ML INJ IV (16:46)
--- NOTE | 2018-09-11 16:48 | SUR.PHASEII ---
Verbalizing anxiety intermittently. Spoke to Dr Roberto about use of Lorazepam but he declines that, even though nausea is currently presenting. Dwayne given. Discussed with patient how anxiety is common both [pre and post op. He also feels the meds are adversely effecting him and declined a second Percocet when asked. Keeps returning to anxiety as a problem. Pain rating is also variable at times a one then more and it is hard to understand his situation although FLACC scale would be 1. He also says the meds cause him difficulties and doesn't want more, then says his pain is increasing.
--- NOTE | 2018-09-11 17:18 | SUR.PHASEII ---
Prior to discharge wanting to be out of stretcher and walking and allowed to do so. Reminded of post op instructions about using operative foot. Still difficult on discharge to fully appreciate needs related to pain, nausea and anxiety as each have come and gone and come and gone. By discharge desires to go home, and nausea is resolved. No complaints with walking. To exit in W/C.
== END 2018-09-11 17:10 | disposition home or self-care (01) ==
PROVIDERS: Family Provider Physician Assistant; PCP Physician Assistant; Visit Provider Orthopaedic Surgery Foot and Ankle Surgery
PROC: (CPT 28505; principal; 2018-09-11 14:00)
DX: S92.412A Displaced fracture of proximal phalanx of left great toe, initial encounter for closed fracture (principal); S92.425A Nondisplaced fracture of distal phalanx of left great toe, initial encounter for closed fracture; W19.XXXA Unspecified fall, initial encounter; E11.65 Type 2 diabetes mellitus with hyperglycemia; Z79.4 Long term (current) use of insulin; M19.90 Unspecified osteoarthritis, unspecified site
CPT/HCPCS: 28505; J0690; J1170; J2405; J2704; J3010

== ENCOUNTER 2019-02-24 16:38 | Emergency (ER) | payer OTHER, SELFPAY ==
[2019-02-24 16:43] VITALS: BP 140/104; PULSE 77; RESP 16; O2SAT 100; BMI 45.4
--- NOTE | 2019-02-24 16:53 | ED.DIZZY ---
HPI - Dizziness General Chief Complaint: Dizziness Stated Complaint: GOT DIZZY WHILE DRIVING Time Seen by Provider: 02/24/19 16:40 Source: patient Mode of arrival: ambulatory Limitations: no limitations History of Present Illness HPI Narrative: Patient is a 49-year-old male who presents with dizziness. He states he was driving when he felt extremely lightheaded he did not pass out. He had to pull the car over his daughter was in the car. It lasted for about 30 seconds. He had no blurry vision no speech difficulty or weakness. He was able to then drive himself to his destination and drive himself home and his drove him to the emergency department today. he denies any chest pain heart palpitations or shortness of breath. He is a diabetic he gave himself insulin just prior to arrival. He says that he had eaten just before the event happened. MD complaint: lightheadedness Timing: sudden onset Description: lightheadedness Associated symptoms: denies other symptoms Related Data Home Medications Medication Instructions Recorded Confirmed lisinopril 5 mg PO DAILY #0 03/19/17 02/24/19 simvastatin 10 mg PO DAILY #0 03/19/17 02/24/19 Novolog Flexpen U-100 Insulin 40 unit SQ DAILY #0 09/02/17 02/24/19 loratadine 10 mg PO DAILY #0 09/02/17 02/24/19 metformin [Glucophage XR] 3 tab PO DAILY #0 09/02/17 02/24/19 fluticasone propionate 50 mcg INTRANASAL Q OTHER DAY 09/11/18 02/24/19 insulin degludec [Tresiba 60 unit SUBCUT DAILY 09/11/18 02/24/19 FlexTouch U-100] omeprazole 20 mg PO DAILY 09/11/18 02/24/19 Allergies Allergy/AdvReac Type Severity Reaction Status Date / Time celecoxib [CELECOXIB] AdvReac Mild MADE MY Verified 02/24/19 16:43 HEART HURT Review of Systems Review of Systems ROS Unobtainable: All systems reviewed & are unremarkable except as noted in HPI and below Constitutional Denies chills, Denies fever(s), Denies lethargy and Denies weakness Eyes Denies change in vision, Denies eye discharge, Denies irritation and Denies loss of vision ENT Ears, Nose, Mouth, and Throat: Denies change in voice, Denies neck pain and Denies sore throat Cardiovascular Denies chest pain, Denies irregular heart rhythm, Reports lightheadedness, Denies dyspnea and Denies dyspnea on exertion Respiratory Denies cough, Denies dyspnea, Denies dyspnea on exertion and Denies wheezing Gastrointestinal Gastrointestinal: Denies abdominal pain, Denies change in bowel habits, Denies diarrhea, Denies nausea and Denies vomiting Genitourinary Denies hematuria, Denies flank pain, Denies urinary incontinence and Denies urinary urgency Musculoskeletal Denies neck pain Integumentary/Breasts Denies pruritus, Denies erythema, Denies rash and Denies wounds Neurologic Denies loss of vision and Denies weakness Allergic/Immunologic Denies wheezing [facility] Medical History Abnormal liver function tests (Acute) Alcohol dependence (Acute) Arthritis (Acute) Cellulitis (Acute 09/07/18) Diverticulosis (Acute) Ectodermal dysplasia (Acute) Former smoker (Acute) Generalized anxiety disorder (Acute) Hemochromatosis (Acute) Multifocal PVCs (Acute) Osteoarthritis (Acute) Retinoschisis (Acute) Sleep apnea (Acute) HTN (hypertension) (Chronic) Hyperlipidemia (Chronic) 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) Seasonal allergies (Chronic) Surgical History Hx of arthroscopy of left knee (Acute 03/19/17) History of hip surgery (Resolved) Status post cholecystectomy (Resolved) Social History household members: spouse Smoking Status: Current every day smoker alcohol intake: current Social History household members: spouse Smoking Status: Current every day smoker alcohol intake: current Exam Initial Vital Signs Initial Vital Signs: Vital Signs Pulse Rate 77 02/24/19 16:43 Respiratory Rate 16 02/24/19 16:43 Blood Pressure 140/104 H 02/24/19 16:43 Pulse Oximetry 100 02/24/19 16:43 GENERAL: Alert overweight well-appearing male and in no acute distress. HEENT: Head atraumatic,EOMI, pupils reactive, face symmetric, CARDIOVASCULAR: Regular rate and rhythm without murmurs, rubs or gallops. RESPIRATORY: Breath sounds equal bilaterally, no wheezes rales or rhonchi. ABDOMEN: Soft, nontender. Normoactive bowel sounds all 4 quadrants. No guarding or rebound. : No CVA tenderness EXTREMITIES: Normal range of motion, no clubbing or edema. Neurovascularly intact NEUROLOGICAL: Alert and oriented x4.Normal gait and speech. Cranial nerves II through XII grossly intact. Good [id number], good [id number], strength equal bilaterally, no dysarthria or aphasia, sensation in tact to soft touch bilaterally, no visual changes, no facial droop SKIN: Warm, dry, no laceration, no petechiae, no rashes or lesions. Scores NIH Stroke Scale Level of Conciousness: Alert, keenly responsive Ask month/age: Answers both questions correctly. Open/close eyes, close hand: Performs both tasks correctly Best gaze horizontal: Normal Visual calhoun: No visual loss Facial palsy: Normal symetrical movement Left arm drift: No drift for full 10 sec Right arm drift: No drift for full 10 sec Left leg drift: No drift for full 10 sec Right leg drift: No drift for full 10 sec Limb ataxia: Absent Sensory on face/arms/legs: Normal, no sensory loss Best language: No aphasia, normal Dysarthria: Normal Extinction or inattention: No abnormality Total NIH Stroke scale score: 0 Course Orders Ordered: Discontinued Medications Sodium Chloride (Normal Saline 0.9%) 1,000 mls @ 1,000 mls/hr IV CONT SUSAN Last Admin: 02/24/19 18:15 Dose: 1,000 mls/hr Vital Signs - 8 hr 02/24/19 16:43 02/24/19 17:16 02/24/19 17:50 Temperature 97.8 F Pulse Rate 77 71 74 Respiratory Rate 16 14 22 Blood Pressure 140/104 H Blood Pressure [Left Arm] 120/87 113/70 Blood Pressure [Right Arm] 128/72 Pulse Oximetry 100 97 97 MDM - Dizziness Lab Data Attestation: I reviewed the patient's lab results. Result diagrams: 02/24/19 17:00 02/24/19 17:00 Lab Results 02/24/19 02/24/19 Range/Units 17:00 17:00 WBC 6.0 (4.5-11.0) X10^3/uL RBC 5.03 (4.5-5.9) X10^6/uL Hgb 14.0 (13.5-17.5) g/dL Hct 40.7 L (41-53) % MCV 81.0 (80-100) fL MCH 27.8 (26-34) PG MCHC 34.3 (30-36) % RDW 14.3 (11.6-14.8) % Plt Count 196 (150-400) X10^3/uL Neut % (Auto) 67.9 (50-75) % Lymph % (Auto) 24.8 L (25-40) % [place] % (Auto) 5.2 (3-14) % Eos % (Auto) 1.2 L (2-4) % Baso % (Auto) 0.9 (0-2) % Neut # (Auto) 4100 (9833-8197) /uL Lymph # (Auto) 1500 (7826-2709) /uL [place] # (Auto) 300 (0-900) /uL Eos # (Auto) 100 (0-450) /uL Baso # (Auto) 100 (0-100) /uL Sodium 138 (137-145) mmol/L Potassium 3.9 (3.4-5.1) mmol/L Chloride 103 (98-107) mmol/L Carbon Dioxide 26 (22-32) mmol/L BUN 15 (9-20) mg/dL Creatinine 0.90 (0.66-1.25) mg/dL Estimated GFR > 60.0 (>60) mL/min BUN/Creatinine Ratio 16.7 (6-22) Glucose 372 H (70-100) mg/dL Calcium 8.6 (8.4-10.2) mg/dL Total Bilirubin 0.7 (0.2-1.3) mg/dL AST 21 (17-59) IU/L ALT 24 (21-72) IU/L Alkaline Phosphatase 112 (38-126) U/L Total Creatine Kinase 98 (55-170) U/L CK-MB (CK-2) TNP CK-MB (CK-2) Rel Index TNP Troponin I < 0.012 (0.01-0.034) ng/mL Total Protein 7.0 (6.3-8.2) g/dL Albumin 3.9 (3.5-5.0) g/dL Globulin 3.1 (1.7-4.1) g/dL Albumin/Globulin Ratio 1.3 (1.0-2.8) Point of Care Testing Glucose POC 372 Urine Dip Bedside Urine Glucose 1000 mg/dl Bedside Urine Bilirubin - Negative Bedside Urine Ketone - Negative Urine Specific [place] 1.015 Bedside Urine Occult Blood - Negative Bedside Urine pH 7.0 Bedside Urine Protein - Negative Bedside Urine Urobilinogen +/- 1mg Bedside Urine Nitrite - Negative Bedside Urine Leukocytes - Negative Esterase ECG Data Attestation: I personally reviewed and interpreted this ECG as follows: Prior ECG tracings: available for review Interpretation: Sinus rhythm rate [address] changes or T-wave inversions ER interval 151 similar to previous EKGs MDM Narrative Medical decision making narrative: Patient is ambulatory to the restroom no assistance. He is overall feeling a little bit better. Glucose minimally elevated at 372, crit is actually lower than what has been previously, I think he is fairly uncontrolled diabetic.. No sign of DKA. No focal deficits EKG and blood work reassuring. Patient will receive of L of IV hydration Discharge Plan Departure Patient Disposition: Home Clinical Impression: Near syncope Discharge Date/Time: 02/24/19 19:05 Interventions: ED Discharge Assessment Last Done: 02/24/19 19:07 Instructions: DI for Syncope in Adults (Fainting) Activity Restrictions/Additional Instructions: YOU SHOULD NOT DRIVE UNTIL YOU HAVE CLEARANCE FROM HER PRIMARY CARE PROVIDER *You have been diagnosed with near syncope *What to do: Increased fluid intake. At this time blood work EKG reassuring. *Continue to take medications as directed *Follow up with your primary care provider in 2-3 days *Return to ER if you should have passing-out longer episodes of dizziness weakness slurring of speech which chest pain heart palpitations or any new, worsening or concerning symptoms Prescriptions: No Action simvastatin 10 MG tablet 10 mg PO DAILY Qty: 0 RF: 0 lisinopril 5 MG tablet 5 mg PO DAILY Qty: 0 RF: 0 loratadine 10 MG tablet 10 mg PO DAILY Qty: 0 RF: 0 Novolog Flexpen U-100 Insulin 100 UNIT/1 ML insulin pen 40 unit SQ DAILY Qty: 0 RF: 0 metformin [Glucophage XR] 750 MG tablet extended release 24 hr 3 tab PO DAILY Qty: 0 RF: 0 omeprazole 20 mg Capsule,Delayed Release(Dr/Ec) 20 mg PO DAILY RF: 0 fluticasone propionate 50 mcg/actuation [place],Suspension 50 mcg intranasal Q OTHER DAY RF: 0 Tresiba FlexTouch U-100 100 unit/mL (3 mL) Insulin Pen 60 unit subcut DAILY RF: 0 Referrals: Yvette Ellis PA-C [Primary Care Provider] - Stand Alone Forms: Work Release Note
[2019-02-24 17:14] LABS: Add Manual Diff / Slide Review NO; Basophils Absolute Auto 100 /uL (0-100); Basophils Percent Auto 0.9 % (0-2); Eosinophils Absolute Auto 100 /uL (0-450); Eosinophils Percent Auto 1.2 % (2-4); Hematocrit 40.7 % (41-53); Lymphocytes Absolute Auto 1500 /uL (1100-4500); Lymphocytes Percent Auto 24.8 % (25-40); Mean Corpuscular HGB Conc 34.3 % (30-36); Mean Corpuscular Hemoglobin 27.8 PG (26-34); Monocytes Absolute Auto 300 /uL (0-900); Monocytes Percent Auto 5.2 % (3-14); Neutrophils Absolute Auto 4100 /uL (1500-7000); Neutrophils Percent Auto 67.9 % (50-75); Platelet Count 196 X10^3/uL (150-400); Red Blood Cell Count 5.03 X10^6/uL (4.5-5.9); Red Cell Distribution Width 14.3 % (11.6-14.8)
[2019-02-24 17:16] VITALS: BP 120/87; BP 128/72; PULSE 71; RESP 14; TEMP 36.6; O2SAT 97
[2019-02-24 17:25] LABS: Alanine Aminotransferase 24 IU/L (21-72); Albumin 3.9 g/dL (3.5-5.0); Albumin Globulin Ratio 1.3 (1.0-2.8); Alkaline Phosphatase 112 U/L (38-126); Aspartate Aminotransferase 21 IU/L (17-59); BUN Creatinine Ratio 16.7 (6-22); Bilirubin Total 0.7 mg/dL (0.2-1.3); Blood Urea Nitrogen 15 mg/dL (9-20); Calcium 8.6 mg/dL (8.4-10.2); Carbon Dioxide 26 mmol/L (22-32); Chloride 103 mmol/L (98-107); Creatine Kinase 98 U/L (55-170); Estimated Glomerular Filt Rate > 60.0 mL/min (>60); Globulin 3.1 g/dL (1.7-4.1); Glucose 372 mg/dL (70-100); HEMOLYSIS 20 (0-50); Potassium 3.9 mmol/L (3.4-5.1); Sodium 138 mmol/L (137-145)
[2019-02-24 17:36] LABS: Troponin I < 0.012 ng/mL (0.01-0.034)
[2019-02-24 17:50] VITALS: BP 113/70; PULSE 74; RESP 22; O2SAT 97
[2019-02-24 17:55] VITALS: BP 136/71; PULSE 82; RESP 21; O2SAT 97
[2019-02-24] MEDS: SODIUM CHLORIDE 0.9% 1,000 ML 1000 ML IV (18:15)
[2019-02-24 18:38] VITALS: BP 131/76; PULSE 72; RESP 24; O2SAT 99
[2019-02-24 19:07] VITALS: BP 131/81; PULSE 69; RESP 23; TEMP 36.6; O2SAT 99
== END 2019-02-24 19:05 | disposition home or self-care (01) ==
PROVIDERS: Emergency Provider Emergency Medicine; Family Provider Physician Assistant; PCP Physician Assistant
DX: R55 Syncope and collapse (principal)
CPT/HCPCS: 36415; 36591; 80053; 81003; 82550; 82962; 84484; 85025; 93005; 93010; 96360; 99283; 99284

== ENCOUNTER → 2019-06-15 16:21 | Outpatient (CLI) | payer OTHER, SELFPAY ==
--- NOTE | 2019-06-15 16:25 | DI.RAD.S_ITS ---
PROCEDURE: XR ANKLE RT MIN 3V INDICATIONS: SPRAIN OF ANTERIOR TALOFIBULAR LIGAMENT OF RIGHT ANKLE TECHNIQUE: 3 views of the ankle were acquired. COMPARISON: [facility], , ANKLE 3 VIEWS RIGHT, 07/22/2017, 20:59. [facility], , ANKLE 3 VIEWS RIGHT, 12/13/2015, 15:16. FINDINGS: Bones: No fractures or dislocations. Ankle mortise is normally aligned. No suspicious bony lesions. Soft tissues: No tibiotalar joint effusion. Achilles tendon appears normal. IMPRESSION: No trauma foun, no malalignment is identified. Incidental note is made of a plantar fascial insertion spur at the posterior calcaneus, without change from December 2015. Dictated by: Brijesh Salgado M.D. on 06/15/2019 at 17:20 Approved by: Brijesh Salgado M.D. on 06/15/2019 at 17:20
== END ==
PROVIDERS: PCP Physician Assistant; Visit Provider Family Medicine
DX: S93.491A Sprain of other ligament of right ankle, initial encounter (principal); M77.31 Calcaneal spur, right foot; X58.XXXA Exposure to other specified factors, initial encounter
CPT/HCPCS: 73610

== ENCOUNTER → 2019-09-10 14:00 | Outpatient (CLI) | payer OTHER, SELFPAY ==
--- NOTE | 2019-09-10 | DI.US.S_ITS ---
PROCEDURE: US CAROTID DOPPLER BI INDICATIONS: DIZZINESS TECHNIQUE: Color and pulse Doppler interrogation was performed of both carotid systems, with image documentation and velocity measurements. COMPARISON: None. FINDINGS: Stenosis calculations are based on SRU (Society of Radiologists in Ultrasound) criteria. Right side: Brachial blood pressure: 143/95 mm Hg. Common carotid artery peak systolic velocity: 102 cm/sec. Internal carotid artery peak systolic velocity: 53 cm/sec. Internal carotid artery end diastolic velocity: 28 cm/sec. External carotid artery peak systolic velocity: 85 cm/sec. ICA/CCA peak systolic ratio: 0.52. Breaux scale imaging description: Normal wave forms. No significant plaque. Percent internal carotid artery stenosis: Normal. Vertebral artery: Flow direction is antegrade. Subclavian artery: 67 cm/s, triphasic waveform. Left side: Brachial blood pressure: 140/95 mm Hg. Common carotid artery peak systolic velocity: 83 cm/sec. Internal carotid artery peak systolic velocity: 56 cm/sec. Internal carotid artery end diastolic velocity: 25 cm/sec. External carotid artery peak systolic velocity: 47 cm/sec. ICA/CCA peak systolic ratio: 0.67 . Breaux scale imaging description: No plaque. Normal waveforms. Percent internal carotid artery stenosis: Normal. Vertebral artery: Flow direction is antegrade. Subclavian artery: 89 cm/s, triphasic waveform. Incidental note is made of mildly prominent bilateral cervical chain lymph nodes with maintenance of fatty hilum. IMPRESSION: 1. No hemodynamically significant stenosis in either carotid system. 2. Antegrade vertebral artery flow bilaterally. 3. Normal subclavian arterial waveforms. 4. Mild hypertension at time of exam. Dictated by: Radha Patino M.D. on 09/10/2019 at 16:34 Approved by: Radha Patino M.D. on 09/10/2019 at 16:41
--- NOTE | 2019-09-10 | DI.RAD.S_ITS ---
PROCEDURE: XR CHEST 2V INDICATIONS: COUGH TECHNIQUE: 2 views of the chest were acquired. COMPARISON: [facility], , CHEST 1 VIEW, 09/02/2017, 13:49. FINDINGS: Surgical changes and devices: None. Lungs and pleura: Lungs are clear. The slight asymmetric elevation of the right hemidiaphragm, chronic. No pleural effusions or pneumothorax. Mediastinum: Mediastinal contours are normal. Heart size is normal. Bones and chest wall: No suspicious bony abnormalities. Flowing osteophytosis throughout the mid thoracic spine. Soft tissues appear unremarkable. IMPRESSION: 1. No acute cardiac pulmonary disease. 2. No significant changes compared to the prior study. Dictated by: Radha Patino M.D. on 09/10/2019 at 16:41 Approved by: Radha Patino M.D. on 09/10/2019 at 16:42
== END ==
PROVIDERS: PCP Physician Assistant; Visit Provider Family Medicine
DX: R42 Dizziness and giddiness (principal); R05 Cough; R59.0 Localized enlarged lymph nodes
CPT/HCPCS: 71046; 93880

== ENCOUNTER 2020-08-09 20:22 | Inpatient (IN) | payer OTHER, SELFPAY ==
[2020-08-09] VITALS (11 sets, daily range): BP systolic 111–136; BP diastolic 53–76; PULSE 110–128; RESP 22–33; TEMP 38–38.7; O2SAT 93–97
[2020-08-09] MEDS: SODIUM CHLORIDE 0.9% 1,000 ML 1000 ML IV (20:33)
--- NOTE | 2020-08-09 20:33 | DI.RAD.S_ITS ---
PROCEDURE: XR CHEST 1V INDICATIONS: suspected sepsis TECHNIQUE: One view of the chest was acquired. COMPARISON: [facility], CR, XR CHEST 2V, 09/10/2019, 14:42. FINDINGS: Surgical changes and devices: None. Lungs and pleura: Lungs are hypoinflated. Patchy opacities noted in left lung base which could represent atelectasis or pneumonia. No pleural effusions or pneumothorax. Mediastinum: Mediastinal contours appear normal. Heart size is normal. Bones and chest wall: No suspicious bony lesions. Overlying soft tissues appear unremarkable. IMPRESSION: Patchy left basilar opacities compatible with atelectasis versus pneumonia. Dictated by: Kacie Wellington MD, PhD on 08/09/2020 at 21:31 Approved by: Kacie Wellington MD, PhD on 08/09/2020 at 21:32
[2020-08-09 20:54] LABS: Add Manual Diff / Slide Review NO; Basophils Absolute Auto 100 /uL (0-100); Basophils Percent Auto 0.7 % (0-2); Eosinophils Absolute Auto 0 /uL (0-450); Eosinophils Percent Auto 0.2 % (2-4); Hematocrit 39.7 % (41-53); Hemoglobin 13.4 g/dL (13.5-17.5); Lymphocytes Absolute Auto 900 /uL (1100-4500); Lymphocytes Percent Auto 8.2 % (25-40); Mean Corpuscular HGB Conc 33.7 % (30-36); Mean Corpuscular Hemoglobin 26.7 PG (26-34); Mean Corpuscular Volume 79.1 fL (80-100); Monocytes Absolute Auto 700 /uL (0-900); Monocytes Percent Auto 6.2 % (3-14); Neutrophils Absolute Auto 9700 /uL (1500-7000); Neutrophils Percent Auto 84.7 % (50-75); Platelet Count 214 X10^3/uL (150-400); Red Blood Cell Count 5.02 X10^6/uL (4.5-5.9); Red Cell Distribution Width 14.9 % (11.6-14.8); White Blood Cell Count 11.4 X10^3/uL (4.5-11.0)
[2020-08-09 21:03] LABS: INR 1.1 (0.9-1.3); Prothrombin Time 12.5 SECONDS (10.1-12.7)
[2020-08-09 21:05] LABS: PTT Partial Thromboplastin Tim 33 SECONDS (26.4-36.2)
[2020-08-09 21:07] LABS: Alanine Aminotransferase 22 IU/L (<50); Albumin Globulin Ratio 1.3 (1.0-2.8); Alkaline Phosphatase 131 U/L (38-126); Aspartate Aminotransferase 20 IU/L (17-59); BUN Creatinine Ratio 14.3 (6-22); Bilirubin Total 0.9 mg/dL (0.2-1.3); Blood Urea Nitrogen 12 mg/dL (9-20); Calcium 8.5 mg/dL (8.4-10.2); Carbon Dioxide 27 mmol/L (22-32); Chloride 96 mmol/L (98-107); Estimated Glomerular Filt Rate > 60.0 mL/min (>60); Globulin 3.2 g/dL (1.7-4.1); Glucose 408 mg/dL (70-100); HEMOLYSIS < 15 (0-50); Lactate (Lactic Acid) 1.9 mmol/L (0.7-2.1); Lipase 69 U/L (23-300); Potassium 3.9 mmol/L (3.4-5.1); Sodium 128 mmol/L (137-145); Total Protein 7.2 g/dL (6.3-8.2)
[2020-08-09 21:10] LABS: COVID19 -Nasal RAPID Negative (Negative)
[2020-08-09 21:26] LABS: Procalcitonin < 0.05 ng/mL (<0.5)
[2020-08-09] MEDS: BUPIVACAINE 0.5% W/ EPI (PF) 30 ML VIAL 5 ML SUBCUT (22:18)
--- NOTE | 2020-08-09 22:38 | ED.FEVER ---
HPI - Fever General Chief Complaint: Fever Stated Complaint: states temp of 104, chills Time Seen by Provider: 08/09/20 20:30 Source: patient and family Mode of arrival: Ambulatory Limitations: no limitations History of Present Illness HPI Narrative: 50M daily smoker with morbid obesity, diabetes, HTN, and hyperlipidemia presents with his and the chief complaint of fever, chills, cough, and weakness over the day. He denies any headache, sore throat or runny nose. He denies any chest pain. He denies any abdominal pain, nausea or vomiting. He denies any exposure to persons known to be positive for COVID. He states that for the past 4 days he has had a painful swollen ?bump? on his lower abdomen but is otherwise well and free of complaint. He denies any dysuria, frequency or urgency. He denies any diarrhea Related Data Home Medications Medication Instructions Recorded Confirmed lisinopril 5 mg PO DAILY #0 03/19/17 02/24/19 simvastatin 10 mg PO DAILY #0 03/19/17 02/24/19 Novolog Flexpen U-100 Insulin 40 unit SQ DAILY #0 09/02/17 02/24/19 loratadine 10 mg PO DAILY #0 09/02/17 02/24/19 metformin [Glucophage XR] 3 tab PO DAILY #0 09/02/17 02/24/19 fluticasone propionate 50 mcg INTRANASAL Q OTHER DAY 09/11/18 02/24/19 insulin degludec [Tresiba 60 unit SUBCUT DAILY 09/11/18 02/24/19 FlexTouch U-100] omeprazole 20 mg PO DAILY 09/11/18 02/24/19 Allergies Allergy/AdvReac Type Severity Reaction Status Date / Time celecoxib [CELECOXIB] AdvReac Mild MADE MY Verified 02/24/19 16:43 HEART HURT Review of Systems Constitutional Constitutional: Reports body ache(s), Reports chills, Denies fatigue, Reports fever(s), Denies frequent falls, Denies lethargy and Reports weakness Eyes Eyes: Denies change in vision, Denies eye discharge, Denies irritation and Denies loss of vision ENT Ears, Nose, Mouth, and Throat: Denies change in voice, Denies dizziness, Denies neck pain, Denies sore throat and Denies throat swelling Cardiovascular Cardiovascular: Denies chest pain, Denies irregular heart rhythm, Denies lightheadedness, Denies palpitations, Reports dyspnea, Denies dyspnea on exertion and Denies orthopnea Respiratory Respiratory: Reports cough, Reports dyspnea, Denies dyspnea on exertion and Denies wheezing Gastrointestinal Gastrointestinal: Denies abdominal pain, Denies change in bowel habits, Denies diarrhea, Denies nausea and Denies vomiting Musculoskeletal Musculoskeletal: Denies neck pain and Denies numbness Integumentary/Breasts Skin/Breast: Denies pruritus, Reports erythema, Denies rash, Reports skin pain, Reports skin swelling and Reports wounds Neurologic Neurologic: Denies behavioral changes, Denies confusion, Denies dizziness, Denies frequent falls, Denies loss of vision, Denies numbness and Reports weakness Psychiatric Psychiatric: Denies anxiety, Denies behavioral changes, Denies confusion, Denies depression, Denies homicidal ideation and Denies suicidal ideation Endocrine Endocrine: Denies fatigue, Denies flushing and Denies palpitations Hematologic/Lymphatic Hematologic/Lymphatic: Denies easy bruising Allergic/Immunologic Allergic/Immunologic: Denies urticaria, Denies throat swelling and Denies wheezing Patient History Medical History (Updated 08/10/20 @ 01:01 by Parth Barone DO) Abnormal liver function tests Alcohol dependence Arthritis Cellulitis (09/07/18) Diverticulosis Ectodermal dysplasia Former smoker Generalized anxiety disorder Hemochromatosis HTN (hypertension) Hyperlipidemia 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 Obese patient appears unwell, short of breath HEAD: Atraumatic. Normocephalic. EYES: Pupils equal round and reactive. Extraocular motions intact. No scleral icterus. No injection or drainage. ENT: Nose without bleeding, purulent drainage. Throat without erythema, tonsillar hypertrophy or exudate. Airway patent. NECK: Trachea midline. Non tender CARDIOVASCULAR: Tachycardic but regular rhythm without murmurs, gallops, or rubs. RESPIRATORY: Clear to auscultation. Breath sounds equal bilaterally. No wheezes, rales, or rhonchi. GASTROINTESTINAL: Abdomen soft, non-tender, nondistended. 3x2cm area of pain, induration, and erythema of skin overlying suprapubic region. Minimal central fluctuance EXTREMITIES: No edema or joint tenderness. BACK: Nontender without deformity or crepitance. No flank tenderness. NEURO: AOx3. SKIN: No rash or erythema of visible areas Initial Vital Signs Initial Vital Signs: Vital Signs Temperature 100.4 F H 08/09/20 20:31 Pulse Rate 121 H 08/09/20 20:31 Respiratory Rate 22 08/09/20 20:31 Blood Pressure 131/76 08/09/20 20:31 Pulse Oximetry 95 08/09/20 20:31 Procedures Abscess I/D I&D #1: Site: abdomen Local Anesthetic: bupivacaine 0.5% Amount of anesthesia used (mL): 4 Technique: incised with #11 blade Irrigation: No Packing used?: none Complications: pain Course Orders Ordered: ED Orders 08/09/20 20:33 XR chest 1V Stat EKG-12 Lead Stat RT Consult Eval and Treat Now 08/09/20 20:37 COVID19 Stat 08/09/20 20:45 Complete Blood Count AUTO DIFF Stat Comprehensive Metabolic Panel Stat D Dimer Stat Ferritin Stat Lactate (Lactic Acid) Stat Lactate Dehydrogenase Stat Lipase Stat Partial Thromboplastin Time Stat Procalcitonin Stat Prothrombin Time INR Stat 08/09/20 21:17 Blood Culture Stat 08/09/20 21:25 COVID19 Stat 08/09/20 23:16 CT chest abd pel w con Stat Acetaminophen (Acetaminophen 325 Mg Tablet) 650 mg PO Q6HR PRN PRN Reason: Fever/Mild Pain (1-3) Dextrose (Dextrose 50 % In Water 25 Gm/50 Ml Syringe) 25 gm IV PRN PRN PRN Reason: Hypoglycemia Enoxaparin Sodium (Enoxaparin 40 Mg/0.4 Ml Syringe) 40 mg SUBCUT DAILY SUSAN Vancomycin HCl/Dextrose (Vancomycin) 2,000 mg in 400 mls @ 200 mls/hr IV NOW ONE Stop: 08/10/20 02:57 Last Admin: 08/10/20 01:19 Dose: 200 mls/hr Documented by: BAHMAN Sodium Chloride (Normal Saline 0.9%) 1,000 mls @ 100 mls/hr IV CONT SUSAN Ibuprofen (Ibuprofen 600 Mg Tablet) 600 mg PO Q6HR PRN PRN Reason: Fever/Mild Pain (1-3) Insulin Aspart (Insulin Aspart 100 Unit/Ml Insuln Pen) 0 unit SUBCUT ACHS SUSAN; Protocol Insulin Glargine (Insulin Glargine 100 Unit/Ml 3ml Pen) 10 unit SUBCUT 2100 SUSAN Lisinopril (Lisinopril 5 Mg Tablet) 5 mg PO DAILY SUSAN Non-Formulary Medication (Omeprazole) 20 mg PO DAILY SUSAN Non-Formulary Medication (Simvastatin) 10 mg PO DAILY SUSAN Ondansetron HCl (Ondansetron 4 Mg/2 Ml Inj) 4 mg IV Q8HR PRN PRN Reason: Nausea And Vomiting Vancomycin HCl (Vancomycin Per Pharmacy) 1 request MISC NOW ONE Stop: 08/10/20 01:23 Discontinued Medications Bupivacaine HCl/Epinephrine Bitart (Bupivacaine 0.5% W/ Epi (Pf) 30 Ml Vial) 5 ml SUBCUT NOW ONE Stop: 08/09/20 22:08 Last Admin: 08/09/20 22:18 Dose: 5 ml Documented by: JARON Hydroxyzine Pamoate (Hydroxyzine Pamoate 25 Mg Capsule) 25 mg PO NOW ONE Stop: 08/09/20 23:55 Last Admin: 08/09/20 23:56 Dose: 25 mg Documented by: CODI Sodium Chloride (Normal Saline 0.9%) 1,000 mls @ 1,000 mls/hr IV BOLUS ONE Stop: 08/09/20 21:32 Last Infusion: 08/09/20 22:19 Dose: 0 mls/hr Documented by: Admin: 08/09/20 20:33 Dose: 1,000 mls/hr Documented by: JARON Levofloxacin (Levaquin) 750 mg in 150 mls @ 100 mls/hr IV NOW ONE Stop: 08/10/20 00:23 Last Infusion: 08/10/20 00:50 Dose: 0 mls/hr Documented by: Admin: 08/09/20 23:06 Dose: 100 mls/hr Documented by: CODI Ondansetron HCl (Ondansetron 4 Mg/2 Ml Inj) 4 mg IV NOW ONE Stop: 08/10/20 00:52 Last Admin: 08/10/20 00:55 Dose: 4 mg Documented by: CODI Reevaluation(s) Reevaluation #1: repeat COVID ordered, history,physical are very suspicious for COVID. For this reason, fluids and ABX are being held 2251 - COVID negative. Fluids opened up, ABX ordered. Vital Signs Vital signs: Vital Signs - 8 hr 08/09/20 20:31 08/09/20 20:35 08/09/20 21:00 Temperature 100.4 F H Pulse Rate 121 H 125 H 125 H Respiratory Rate 22 25 H 31 H Blood Pressure 131/76 Pulse Oximetry 95 95 08/09/20 21:26 08/09/20 21:30 08/09/20 22:00 Temperature Pulse Rate 128 H 126 H 110 H Respiratory Rate 32 H 27 H 22 Blood Pressure 136/69 136/69 Pulse Oximetry 96 95 95 08/09/20 22:30 08/09/20 22:56 08/09/20 23:00 Temperature 101.7 F H Pulse Rate 125 H 118 H 123 H Respiratory Rate 33 H 27 H 29 H Blood Pressure 111/53 L 111/53 L Pulse Oximetry 97 97 93 08/09/20 23:09 08/09/20 23:40 08/10/20 00:00 Temperature Pulse Rate 122 H 120 H 123 H Respiratory Rate 29 H 27 H Blood Pressure 117/58 L Pulse Oximetry 96 95 96 08/10/20 00:22 08/10/20 00:30 08/10/20 01:00 Temperature Pulse Rate 114 H 112 H 109 H Respiratory Rate 28 H 22 20 Blood Pressure 125/72 Pulse Oximetry 96 93 93 MDM - Fever Lab Data Result diagrams: 08/09/20 20:45 08/09/20 20:45 Labs: Lab Results 08/09/20 08/09/20 08/09/20 Range/Units 20:37 20:45 20:45 WBC 11.4 H (4.5-11.0) X10^3/uL RBC 5.02 (4.5-5.9) X10^6/uL Hgb 13.4 L (13.5-17.5) g/dL Hct 39.7 L (41-53) % MCV 79.1 L (80-100) fL MCH 26.7 (26-34) PG MCHC 33.7 (30-36) % RDW 14.9 H (11.6-14.8) % Plt Count 214 (150-400) X10^3/uL Neut % (Auto) 84.7 H (50-75) % Lymph % (Auto) 8.2 L (25-40) % [place] % (Auto) 6.2 (3-14) % Eos % (Auto) 0.2 L (2-4) % Baso % (Auto) 0.7 (0-2) % Neut # (Auto) 9700 H (8707-1933) /uL Lymph # (Auto) 900 L (2066-4904) /uL [place] # (Auto) 700 (0-900) /uL Eos # (Auto) 0 (0-450) /uL Baso # (Auto) 100 (0-100) /uL PT 12.5 (10.1-12.7) SECONDS INR 1.1 (0.9-1.3) APTT 33 (26.4-36.2) SECONDS D-Dimer (<230) ng/mL Sodium (137-145) mmol/L Potassium (3.4-5.1) mmol/L Chloride (98-107) mmol/L Carbon Dioxide (22-32) mmol/L BUN (9-20) mg/dL Creatinine (0.66-1.25) mg/dL Estimated GFR (>60) mL/min BUN/Creatinine Ratio (6-22) Glucose (70-100) mg/dL Lactate (0.7-2.1) mmol/L Calcium (8.4-10.2) mg/dL Ferritin (18-464) ng/mL Total Bilirubin (0.2-1.3) mg/dL AST (17-59) IU/L ALT (<50) IU/L Alkaline Phosphatase (38-126) U/L Lactate Dehydrogenase (313-618) U/L Total Protein (6.3-8.2) g/dL Albumin (3.5-5.0) g/dL Globulin (1.7-4.1) g/dL Albumin/Globulin Ratio (1.0-2.8) Lipase (23-300) U/L Procalcitonin (<0.5) ng/mL COVID-19 PCR Negative (Negative) 08/09/20 08/09/20 08/09/20 Range/Units 20:45 20:45 20:45 WBC (4.5-11.0) X10^3/uL RBC (4.5-5.9) X10^6/uL Hgb (13.5-17.5) g/dL Hct (41-53) % MCV (80-100) fL MCH (26-34) PG MCHC (30-36) % RDW (11.6-14.8) % Plt Count (150-400) X10^3/uL Neut % (Auto) (50-75) % Lymph % (Auto) (25-40) % [place] % (Auto) (3-14) % Eos % (Auto) (2-4) % Baso % (Auto) (0-2) % Neut # (Auto) (3453-5438) /uL Lymph # (Auto) (9025-7459) /uL [place] # (Auto) (0-900) /uL Eos # (Auto) (0-450) /uL Baso # (Auto) (0-100) /uL PT (10.1-12.7) SECONDS INR (0.9-1.3) APTT (26.4-36.2) SECONDS D-Dimer (<230) ng/mL Sodium 128 L (137-145) mmol/L Potassium 3.9 (3.4-5.1) mmol/L Chloride 96 L (98-107) mmol/L Carbon Dioxide 27 (22-32) mmol/L BUN 12 (9-20) mg/dL Creatinine 0.84 (0.66-1.25) mg/dL Estimated GFR > 60.0 (>60) mL/min BUN/Creatinine Ratio 14.3 (6-22) Glucose 408 H (70-100) mg/dL Lactate 1.9 (0.7-2.1) mmol/L Calcium 8.5 (8.4-10.2) mg/dL Ferritin (18-464) ng/mL Total Bilirubin 0.9 (0.2-1.3) mg/dL AST 20 (17-59) IU/L ALT 22 (<50) IU/L Alkaline Phosphatase 131 H (38-126) U/L Lactate Dehydrogenase (313-618) U/L Total Protein 7.2 (6.3-8.2) g/dL Albumin 4.0 (3.5-5.0) g/dL Globulin 3.2 (1.7-4.1) g/dL Albumin/Globulin Ratio 1.3 (1.0-2.8) Lipase 69 (23-300) U/L Procalcitonin < 0.05 (<0.5) ng/mL COVID-19 PCR (Negative) 08/09/20 08/09/20 08/09/20 Range/Units 20:45 20:45 21:25 WBC (4.5-11.0) X10^3/uL RBC (4.5-5.9) X10^6/uL Hgb (13.5-17.5) g/dL Hct (41-53) % MCV (80-100) fL MCH (26-34) PG MCHC (30-36) % RDW (11.6-14.8) % Plt Count (150-400) X10^3/uL Neut % (Auto) (50-75) % Lymph % (Auto) (25-40) % [place] % (Auto) (3-14) % Eos % (Auto) (2-4) % Baso % (Auto) (0-2) % Neut # (Auto) (9623-6944) /uL Lymph # (Auto) (7627-9082) /uL [place] # (Auto) (0-900) /uL Eos # (Auto) (0-450) /uL Baso # (Auto) (0-100) /uL PT (10.1-12.7) SECONDS INR (0.9-1.3) APTT (26.4-36.2) SECONDS D-Dimer < 200 (<230) ng/mL Sodium (137-145) mmol/L Potassium (3.4-5.1) mmol/L Chloride (98-107) mmol/L Carbon Dioxide (22-32) mmol/L BUN (9-20) mg/dL Creatinine (0.66-1.25) mg/dL Estimated GFR (>60) mL/min BUN/Creatinine Ratio (6-22) Glucose (70-100) mg/dL Lactate (0.7-2.1) mmol/L Calcium (8.4-10.2) mg/dL Ferritin 111 (18-464) ng/mL Total Bilirubin (0.2-1.3) mg/dL AST (17-59) IU/L ALT (<50) IU/L Alkaline Phosphatase (38-126) U/L Lactate Dehydrogenase 418 (313-618) U/L Total Protein (6.3-8.2) g/dL Albumin (3.5-5.0) g/dL Globulin (1.7-4.1) g/dL Albumin/Globulin Ratio (1.0-2.8) Lipase (23-300) U/L Procalcitonin (<0.5) ng/mL COVID-19 PCR Negative (Negative) Point of Care Testing Glucose POC 344 Urine Dip Bedside Urine Glucose 500 mg/dl Bedside Urine Bilirubin - Negative Bedside Urine Ketone - Negative Urine Specific [place] 1.015 Bedside Urine Occult Blood - Negative Bedside Urine pH 6.0 Bedside Urine Protein - Negative Bedside Urine Urobilinogen - Negative Bedside Urine Nitrite - Negative Bedside Urine Leukocytes - Negative Esterase Imaging Data CT scan - chest: Radiologist's Impression: Chest/Abd/Pelvis - no airspace disease, no abnormal findings. Thickened skin of anterior lower abdomen with no abscess MDM Narrative Medical decision making narrative: 50M smoker, diabetic with morbid obesity with cough, fever as high as 105 at home, chills, and tachycardia. High concern for COVID, initial CXR mentions patchy basilar infiltrates. Due to high concern a backup COVID ordered, fluids limited and ABX held. Patient does have some cellulitis of his lower anterior abdomen but no obvious abscess, it seems unlikely that this would be the primary source of infection leading to his presentation. CT ordered and has minimal findings. Given initial concern for pulmonary source Levaqin was first ABX, however now that CT lungs has no findings we will switch to Vanco to cover his skin infection. Discharge Plan Departure Patient Disposition: Admitted As Inpatient Clinical Impression: Sepsis, Abdominal wall cellulitis, Pneumonia of left lung due to infectious organism, Acute hyponatremia Admit Date/Time: 08/10/20 01:04 Admit Provider: Madelaine Pittman
[2020-08-09 22:53] LABS: COVID19 -Nasal RAPID Negative (Negative)
[2020-08-09 22:55] LABS: D Dimer < 200 ng/mL (<230)
[2020-08-09] MEDS: levoFLOXacin 750 MG/150 ML PIGGYBACK 100 MG IV (23:06)
--- NOTE | 2020-08-09 23:16 | DI.CT.S_ITS ---
PROCEDURE: CT CHEST ABD PEL W CON INDICATIONS: fever, sepsis, pneumonia, also abdominal abscess TECHNIQUE: After the administration of intravenous contrast, 5 mm thick sections acquired from the lung apices to the symphysis. 2.5 mm thick coronal and sagittal reformats were acquired. Additional 7 mm thick coronal maximum intensity projection (MIP) reformats acquired through the lungs. Optional 10-minute delayed imaging may be performed from the kidneys to the bladder. For radiation dose reduction, the following was used: automated exposure control, adjustment of mA and/or kV according to patient size. COMPARISON: , CR, XR CHEST 1V, 08/09/2020, 21:19. FINDINGS: Image quality: Excellent. CHEST: Lungs: No pulmonary contusions or lacerations. No acute airspace opacities. No pneumothorax or hemothorax. Central and peripheral airways appear patent and normal in caliber. Mediastinum: No mediastinal hematomas. Heart size is normal. No pericardial effusion. Thoracic aorta and pulmonary arteries demonstrate normal size and enhancement. No mediastinal or hilar adenopathy. Esophagus is normal in caliber. No hiatal hernia. Chest wall: No rib fractures. No subcutaneous emphysema. No axillary or supraclavicular adenopathy. Thyroid gland is normal . ABDOMEN: Solid organs: Liver is normal in size and enhancement, without lacerations. Gallbladder is surgically absent . Biliary system is non-dilated. Pancreas enhances normally, without transection. Spleen is normal in size and enhancement, without lacerations. No adrenal hematomas. Both kidneys enhance normally, without hydronephrosis or lacerations. Peritoneum and bowel: No free fluid or air. Unenhanced bowel loops demonstrate normal wall thickness and caliber. Normal appendix. Nodes and vessels: No retroperitoneal or mesenteric adenopathy. Aorta and inferior vena cava are normal in size and enhancement. Miscellaneous: No ventral hernias. There is subcutaneous soft tissue stranding and skin thickening in the suprapubic area consistent with cellulitis. A tiny pocket of subcutaneous gas is present. PELVIS: Genitourinary: Bladder wall thickness is normal. Miscellaneous: No inguinal adenopathy. There is a fat containing left inguinal hernia. Bones: Pelvic ring and hip joints appear intact. No vertebral compression fractures. IMPRESSION: 1. Subcutaneous soft tissue stranding and skin thickening in the suprapubic area consistent with cellulitis. A tiny subcutaneous gas is noted. 2. No findings to suggest pneumonia. 3. No acute intra-abdominal or intrapelvic process. No significant discrepancy with the overnight associate radiology preliminary report. Dictated by: Rajan Delarosa M.D. on 08/10/2020 at 7:23 Approved by: Rajan Delarosa M.D. on 08/10/2020 at 7:28
[2020-08-09 23:32] LABS: Ferritin 111 ng/mL (18-464)
[2020-08-09 23:45] LABS: Lactate Dehydrogenase 418 U/L (313-618)
[2020-08-09] MEDS: hydrOXYzine pamoate 25 MG CAPSULE PO (23:56)
[2020-08-10] VITALS (14 sets, daily range): BP systolic 90–134; BP diastolic 52–73; PULSE 76–123; RESP 16–28; TEMP 36.1–37.9; O2SAT 93–97; BMI 46.0
[2020-08-10] MEDS: ONDANSETRON 4 MG/2 ML INJ IV (00:55)
[2020-08-10] MEDS: VANCOMYCIN 2,000 MG/400 ML PIGGYBACK 200 MG IV ×2 (01:19→09:12)
[2020-08-10 01:47] LABS: Hemoglobin A1C% w Est Avg Glu 12.4 % (4.0-6.0)
[2020-08-10] MEDS: SODIUM CHLORIDE 0.9% 1,000 ML 100 ML IV (02:58)
--- NOTE | 2020-08-10 03:08 | P.HP_ITS ---
History of Present Illness History of Present Illness Date Patient Seen: 08/10/20 Time Patient Seen: 00:45 Chief complaint: states temp of 105, chills Narrative: Amor Carmichael was a 50 year old male with diabetes type 2 very poorly controlled, essential hypertension and hyperlipidemia who developed sudden onset fevers overnight recording it is high as 105. He was feeling not very well while he was at work and was apparently sent home. 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 He does not recall having any exposure to anybody with COVID or suspected COVID. He does not endorse having shortness of breath, cough, or shortness of breath. He states that he feels very fatigued and wants to sleep and not have to stay at the hospital. He was having some mild nausea while I was in the room. He denies chest pain, abdominal pain, dysuria, diarrhea or constipation. He does state that he has a area below his pannus that seems to be infected. In the emergency department they did try to drain it however were only able to get enough to send in for wound culture. Chest x-ray done in the ED indicated patchy opacities of the left lung with atelectasis versus pneumonia however follow-up CT of the chest abdomen and pelvis only identified skin thickening and infiltration of the subcutaneous factor in the groin indicating cellulitis without an abscess. They stated that they had not seen any pneumonia. The patient was tested with 2 different COVID- 19 processing machines and both tests were negative. T-max was 100.7? currently is temperature is 100.1?, blood pressure 134/73, heart rate 115, respiratory rate of 18, oxygen saturation 95% on room air, he weighs 149 kg with a BMI of 46. WBC is mildly elevated at 11.4 is hemoglobin is 13.4 hematocrit 39.7, platelet count 214, he has a lymphopenia of 900, sodium 128, potassium 3.9, chloride 96, bicarb 27, BUN 12, creatinine 0.84, GFR is greater than 60, glucose was 408, hemoglobin A1c today was 12.4%, lactate 1.9, alk-phos 131, lactate lipase were within normal limits procalcitonin was also within normal limits he is negative for MRSA as well as COVID-19. 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 Osteoarthritis Retinoschisis Seasonal allergies Sleep apnea Surgical History History of hip surgery Hx of arthroscopy of left knee (03/19/17) Status post cholecystectomy Family & Social History Social History: household members spouse Prior Living Arrangements House Safety & Behavioral: Feels Safe in Current Yes Environment Been Physically Hurt or No Threatened By a Person Suicidal Ideation Description None Suicide Plan Description No Plan Tobacco & Substance use: Tobacco type cigarettes Smoking Status Current every day smoker Smoking packs per day 0.5 alcohol intake current alcohol intake frequency 0-2 drinks per day Substance Use Type does not use Meds Home Medications and Allergies Home Medications Medication Instructions Recorded Confirmed Type simvastatin 10 mg PO DAILY #0 03/19/17 08/10/20 History insulin aspart U-100 [Novolog 20 unit SQ BID #0 09/02/17 08/10/20 History Flexpen U-100 Insulin] loratadine 10 mg PO DAILY #0 09/02/17 08/10/20 History fluticasone propionate 50 mcg INTRANASAL Q OTHER DAY 09/11/18 08/10/20 History insulin degludec [Tresiba 70 unit SUBCUT DAILY 09/11/18 08/10/20 History FlexTouch U-100] omeprazole 40 mg PO DAILY 09/11/18 08/10/20 History lisinopril 10 mg PO DAILY 08/10/20 08/10/20 History meclizine 25 mg PO DAILY 08/10/20 08/10/20 History metformin 2,000 mg PO DAILY 08/10/20 08/10/20 History ropinirole 1 mg PO TID 08/10/20 08/10/20 History Allergies Allergy/AdvReac Type Severity Reaction Status Date / Time celecoxib [CELECOXIB] AdvReac Mild MADE MY Verified 02/24/19 16:43 HEART HURT Review of Systems Review of Systems ROS: Yes All systems reviewed with the patient and are negative except as otherwise documented Exam Vital Signs (past 8 hours): - 08/09/20 20:31 08/09/20 20:35 08/09/20 21:00 Temperature 100.4 F H Pulse Rate 121 H 125 H 125 H Respiratory Rate 22 25 H 31 H Blood Pressure 131/76 Pulse Oximetry 95 95 08/09/20 21:26 08/09/20 21:30 08/09/20 22:00 Temperature Pulse Rate 128 H 126 H 110 H Respiratory Rate 32 H 27 H 22 Blood Pressure 136/69 136/69 Pulse Oximetry 96 95 95 08/09/20 22:30 08/09/20 22:56 08/09/20 23:00 Temperature 101.7 F H Pulse Rate 125 H 118 H 123 H Respiratory Rate 33 H 27 H 29 H Blood Pressure 111/53 L 111/53 L Pulse Oximetry 97 97 93 08/09/20 23:09 08/09/20 23:40 08/10/20 00:00 Temperature Pulse Rate 122 H 120 H 123 H Respiratory Rate 29 H 27 H Blood Pressure 117/58 L Pulse Oximetry 96 95 96 08/10/20 00:22 08/10/20 00:30 08/10/20 01:00 Temperature Pulse Rate 114 H 112 H 109 H Respiratory Rate 28 H 22 20 Blood Pressure 125/72 Pulse Oximetry 96 93 93 08/10/20 01:18 08/10/20 03:07 Temperature 99.4 F 100.1 F H Pulse Rate 115 H Respiratory Rate 18 Blood Pressure 134/73 Pulse Oximetry 95 Oxygen Delivery Method Room Air Oxygen Flow Rate 0 Narrative Exam Narrative: Gen: Alert, oriented, well-developed 50 y.o. male, appears ill and fatigued HEENT: normocephalic, atraumatic, conjunctiva clear, sclera non-icteric, oral mucosa pink and moist Neck: supple, full ROM, no JVD, trachea is midline Resp: Lungs CTA, non-labored breathing CV: RRR, no murmur or rubs Abd: soft, non-tender, normoactive BTs Skin: Has a mildly erythematous and indurated area below his pannus and suprapubic area, unable to visualize the opening of the wound though., dry and intact Neuro: Alert and oriented X 4 w/no focal deficits. Speech clear and coherent. Extremities: moves all 4 extremities, is ambulatory, negative Gemma?s sign Psyche: normal mood and affect. Objective Labs Result Diagrams: 08/09/20 20:45 08/09/20 20:45 Labs: Laboratory Results - last 24 hr 08/09/20 08/09/20 08/09/20 20:37 20:45 20:45 WBC 11.4 H RBC 5.02 Hgb 13.4 L Hct 39.7 L MCV 79.1 L MCH 26.7 MCHC 33.7 RDW 14.9 H Plt Count 214 Neut % (Auto) 84.7 H Lymph % (Auto) 8.2 L Hemphill % (Auto) 6.2 Eos % (Auto) 0.2 L Baso % (Auto) 0.7 Neut # (Auto) 9700 H Lymph # (Auto) 900 L Hemphill # (Auto) 700 Eos # (Auto) 0 Baso # (Auto) 100 PT 12.5 INR 1.1 APTT 33 D-Dimer Sodium Potassium Chloride Carbon Dioxide BUN Creatinine Estimated GFR BUN/Creatinine Ratio Glucose Hemoglobin A1c Lactate Calcium Ferritin Total Bilirubin AST ALT Alkaline Phosphatase Lactate Dehydrogenase Total Protein Albumin Globulin Albumin/Globulin Ratio Lipase Procalcitonin COVID-19 PCR Negative 08/09/20 08/09/20 08/09/20 20:45 20:45 20:45 WBC RBC Hgb Hct MCV MCH MCHC RDW Plt Count Neut % (Auto) Lymph % (Auto) Hemphill % (Auto) Eos % (Auto) Baso % (Auto) Neut # (Auto) Lymph # (Auto) Hemphill # (Auto) Eos # (Auto) Baso # (Auto) PT INR APTT D-Dimer Sodium 128 L Potassium 3.9 Chloride 96 L Carbon Dioxide 27 BUN 12 Creatinine 0.84 Estimated GFR > 60.0 BUN/Creatinine Ratio 14.3 Glucose 408 H Hemoglobin A1c Lactate 1.9 Calcium 8.5 Ferritin Total Bilirubin 0.9 AST 20 ALT 22 Alkaline Phosphatase 131 H Lactate Dehydrogenase Total Protein 7.2 Albumin 4.0 Globulin 3.2 Albumin/Globulin Ratio 1.3 Lipase 69 Procalcitonin < 0.05 COVID-19 PCR 08/09/20 08/09/20 08/09/20 20:45 20:45 20:45 WBC RBC Hgb Hct MCV MCH MCHC RDW Plt Count Neut % (Auto) Lymph % (Auto) Hemphill % (Auto) Eos % (Auto) Baso % (Auto) Neut # (Auto) Lymph # (Auto) Hemphill # (Auto) Eos # (Auto) Baso # (Auto) PT INR APTT D-Dimer < 200 Sodium Potassium Chloride Carbon Dioxide BUN Creatinine Estimated GFR BUN/Creatinine Ratio Glucose Hemoglobin A1c 12.4 H Lactate Calcium Ferritin 111 Total Bilirubin AST ALT Alkaline Phosphatase Lactate Dehydrogenase 418 Total Protein Albumin Globulin Albumin/Globulin Ratio Lipase Procalcitonin COVID-19 PCR 08/09/20 21:25 WBC RBC Hgb Hct MCV MCH MCHC RDW Plt Count Neut % (Auto) Lymph % (Auto) Hemphill % (Auto) Eos % (Auto) Baso % (Auto) Neut # (Auto) Lymph # (Auto) Hemphill # (Auto) Eos # (Auto) Baso # (Auto) PT INR APTT D-Dimer Sodium Potassium Chloride Carbon Dioxide BUN Creatinine Estimated GFR BUN/Creatinine Ratio Glucose Hemoglobin A1c Lactate Calcium Ferritin Total Bilirubin AST ALT Alkaline Phosphatase Lactate Dehydrogenase Total Protein Albumin Globulin Albumin/Globulin Ratio Lipase Procalcitonin COVID-19 PCR Negative Assessment & Plan Assessment & Plan narrative: Augustin Carmichael is a 50 year old male who will be admitted for further management of and abdominal cellulitis and severe fever. Abdominal wall cellulitis, acute, present on admission -he was given a 1 time dose of Levaquin and vancomycin in the ED and this will be continued dosed per pharmacy -MRSA was negative -wound and blood cultures are pending Diabetes type 2 very poorly controlled with a hemoglobin A1c of 12.4 -he will be started on glargine 10 units b.i.d. and a medium dose correctional s misha -Patient needs to have diabetic education -metformin is currently being held Essential hypertension, chronic -continue home dose of lisinopril 10 mg p.o. daily Hyperlipidemia, chronic -continue simvastatin 10 mg p.o. daily Morbid obesity, chronic and present on admission -Have requested dietary consult. VTE prophylaxis: Wells risk score: 0 Enoxaparin 40 mg subQ daily Patient is admitted under inpatient status with expected length of stay greater than 2 midnights due to severity of presenting symptoms, risk of adverse event, and complexity of treatment plan. FEN: IV NS at 100 mL/hour, carb controlled diet, BMP and magnesium in the am. Dispo: probable discharged to home Code Status: full code as discussed with patient and his Quality VTE Deep Vein Thrombosis/Pulmonary Embolism Present on Admission: No
[2020-08-10 06:47] LABS: Add Manual Diff / Slide Review NO; Basophils Absolute Auto 0 /uL (0-100); Basophils Percent Auto 0.4 % (0-2); Eosinophils Absolute Auto 0 /uL (0-450); Eosinophils Percent Auto 0.1 % (2-4); Hematocrit 37.9 % (41-53); Hemoglobin 12.5 g/dL (13.5-17.5); Lymphocytes Absolute Auto 1000 /uL (1100-4500); Lymphocytes Percent Auto 8.4 % (25-40); Mean Corpuscular HGB Conc 33.1 % (30-36); Mean Corpuscular Hemoglobin 26.3 PG (26-34); Mean Corpuscular Volume 79.4 fL (80-100); Monocytes Absolute Auto 1000 /uL (0-900); Monocytes Percent Auto 8.6 % (3-14); Neutrophils Absolute Auto 9300 /uL (1500-7000); Neutrophils Percent Auto 82.5 % (50-75); Platelet Count 193 X10^3/uL (150-400); Red Blood Cell Count 4.77 X10^6/uL (4.5-5.9); White Blood Cell Count 11.3 X10^3/uL (4.5-11.0)
[2020-08-10 07:00] LABS: BUN Creatinine Ratio 20.7 (6-22); Blood Urea Nitrogen 12 mg/dL (9-20); Carbon Dioxide 27 mmol/L (22-32); Chloride 100 mmol/L (98-107); Estimated Glomerular Filt Rate > 60.0 mL/min (>60); Glucose 246 mg/dL (70-100); HEMOLYSIS < 15 (0-50); Magnesium 1.8 mg/dL (1.6-2.3); Potassium 3.8 mmol/L (3.4-5.1); Sodium 132 mmol/L (137-145)
[2020-08-10] MEDS: CEFTRIAXONE 2 GM/50 ML FROZ.PIGGY IV (07:43)
[2020-08-10] MEDS: ENOXAPARIN 40 MG/0.4 ML SYRINGE SUBCUT ×2 (08:50→20:33)
[2020-08-10] MEDS: PANTOPRAZOLE 20 MG TABLET PO (08:51)
[2020-08-10] MEDS: ACETAMINOPHEN 325 MG TABLET 650 MG PO ×3 (08:51→18:32)
[2020-08-10] MEDS: lisinopriL 5 MG TABLET PO (08:55)
[2020-08-10] MEDS: INSULIN ASPART 100 UNIT/ML INSULN PEN SUBCUT ×4 (09:02→20:33)
[2020-08-10] MEDS: INSULIN GLARGINE 100 UNIT/ML 3ML PEN 10 UNIT SUBCUT ×2 (09:02→20:34)
--- NOTE | 2020-08-10 12:54 | CM.DANOTE ---
DCP: Case received, EMR reviewed and met with patient. Introduced self and role. Was able to obtain information from patient regarding his baseline activity level and some health information prior to hospitalization. DCP assessment completed with information currently available. Patient is a 50 year old male who admitted early this morning to the care of the hospitalist team. PCP: Dr. Rachael Strauss at [facility] [place] Payer: confirmed: Healthcare Management/[facility]. Patient came to the hospital via private vehicle secondary to chills, weakness, a fever of 104. Patient holds current diagnosis of cellulitis of pannus (abdomen). Patient has history of diabetes type 2, and is morbidly obese. He also has history of alcohol dependence. He is negative for COVID. Met with patient in his room. He is alert and oriented. He resides in [facility] with his spouse. He goes to [facility] [place] for medical needs. 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 Asked patient if he has had any infections like this before, and stated that he has. He denied having to go home with any IV treatments. Asked patient about his diabetes. He stated that he does not check his blood sugars like he should. Asked him if he had seen a illuminating engineer for any diabetic teaching, stated, he's not sure if he has. His hemoglobin A1C was high upon admission. P: DCP to continue to follow closely, and see if he will have any needs or resources. At this time, culture is pending. Karley Zendejas RN/[employer]
[2020-08-10] MEDS: IBUPROFEN 600 MG TABLET PO (13:20)
[2020-08-10] MEDS: VANCOMYCIN 1,500 MG/300 ML PIGGYBACK 200 MG IV (17:09)
[2020-08-10] MEDS: NYSTATIN POWDER 15GM 1 APPLIC TOP (18:07)
[2020-08-10] MEDS: SIMVASTATIN 20 MG TABLET 10 MG PO (20:34)
[2020-08-11] VITALS (8 sets, daily range): BP systolic 93–126; BP diastolic 60–85; PULSE 80–95; RESP 16–20; TEMP 36.1–36.8; O2SAT 93–97
[2020-08-11] MEDS: ACETAMINOPHEN 325 MG TABLET 650 MG PO ×2 (03:19→12:41)
[2020-08-11] MEDS: IBUPROFEN 600 MG TABLET PO ×3 (03:19→21:54)
[2020-08-11] MEDS: VANCOMYCIN 1,500 MG/300 ML PIGGYBACK 200 MG IV ×2 (04:29→12:41)
[2020-08-11 05:23] LABS: Add Manual Diff / Slide Review NO; Basophils Absolute Auto 0 /uL (0-100); Basophils Percent Auto 0.4 % (0-2); Eosinophils Absolute Auto 0 /uL (0-450); Eosinophils Percent Auto 0.3 % (2-4); Hematocrit 39.8 % (41-53); Hemoglobin 13.3 g/dL (13.5-17.5); Lymphocytes Absolute Auto 1000 /uL (1100-4500); Lymphocytes Percent Auto 9.5 % (25-40); Mean Corpuscular HGB Conc 33.4 % (30-36); Mean Corpuscular Hemoglobin 27.1 PG (26-34); Mean Corpuscular Volume 80.9 fL (80-100); Monocytes Absolute Auto 700 /uL (0-900); Monocytes Percent Auto 6.3 % (3-14); Neutrophils Absolute Auto 9200 /uL (1500-7000); Neutrophils Percent Auto 83.5 % (50-75); Platelet Count 191 X10^3/uL (150-400); Red Blood Cell Count 4.91 X10^6/uL (4.5-5.9); Red Cell Distribution Width 14.6 % (11.6-14.8)
--- NOTE | 2020-08-11 05:24 | PC.NURSE ---
0500 Blood sugar reading 328. Taryn Pittman notified. No further instructions at this time. At 2030 last night, his blood sugar was 373 and he received 10u of Lantus and 7u of Novolog.
[2020-08-11 05:50] LABS: BUN Creatinine Ratio 21.1 (6-22); Blood Urea Nitrogen 15 mg/dL (9-20); Calcium 8.6 mg/dL (8.4-10.2); Carbon Dioxide 27 mmol/L (22-32); Chloride 105 mmol/L (98-107); Estimated Glomerular Filt Rate > 60.0 mL/min (>60); Glucose 368 mg/dL (70-100); HEMOLYSIS < 15 (0-50); Potassium 4.5 mmol/L (3.4-5.1); Sodium 134 mmol/L (137-145)
[2020-08-11] MEDS: INSULIN ASPART 100 UNIT/ML INSULN PEN SUBCUT ×4 (08:53→21:42)
[2020-08-11] MEDS: INSULIN GLARGINE 100 UNIT/ML 3ML PEN 10 UNIT SUBCUT (08:53)
[2020-08-11 08:54] LABS: Vancomycin Trough 14.3 ug/mL (10-20)
[2020-08-11] MEDS: CEFTRIAXONE 2 GM/50 ML FROZ.PIGGY IV (08:54)
[2020-08-11] MEDS: PANTOPRAZOLE 20 MG TABLET PO (08:54)
[2020-08-11] MEDS: ENOXAPARIN 40 MG/0.4 ML SYRINGE SUBCUT ×2 (08:54→21:42)
[2020-08-11] MEDS: NYSTATIN POWDER 15GM 1 APPLIC TOP (08:55)
[2020-08-11] MEDS: INSULIN GLARGINE 100 UNIT/ML 3ML PEN 60 UNIT SUBCUT (12:51)
--- NOTE | 2020-08-11 13:33 | P.PN_ITS ---
Subjective Subjective Date Patient Seen: 08/11/20 Interval history: Amor Carmichael is a 50-year-old male with hypertension, hyperlipidemia, diabetes mellitus type 2, insulin using and poorly controlled, GERD, QUEENIE not on CPAP and Parkinson's disease who developed pain and swelling of suprapubic area and reported high fevers. The patient is resting in bedside chair comfortably. His suprapubic cellulitis is slightly improved. His significant tenderness of suprapubic area has resolved and he now only has mild tenderness with palpation. He endorses headache and has a chronic cough that is unchanged and he relates to smoking. He has been afebrile for 36 hours. He has no other complaints and denies shortness of breath, chest pain, abdominal pain, nausea, vomiting, fever, chills, dysuria, diarrhea or constipation. He is voiding and eliminating without difficulty. Exam Vital Signs (past 8 hours): - 08/11/20 08:03 08/11/20 10:00 Temperature 96.9 F L Pulse Rate 80 Respiratory Rate 16 Blood Pressure 93/60 Pulse Oximetry 94 94 Oxygen Delivery Method Room Air Oxygen Flow Rate 0 Narrative Exam Narrative: General: Middle aged morbidly obese male sitting in bedside chair comfortably and in no acute distress, well-developed, well-nourished, appropriately interactive. HEENT: Normocephalic, atraumatic. External ears without defect. Pupils equal, round, and reactive to light. Anicteric sclerae, moist conjunctivae, and no lid lag. Oropharynx free of erythema and cobble stoning with moist mucosa. Neck: Supple with full range of motion. No lymphadenopathy or thyromegaly. Cardiovascular: Regular rate and rhythm without murmurs, rubs, or gallops appreciated Pulmonary: Clear to auscultation bilaterally without crackles, wheezes, or rhonchi. Normal respiratory effort with no use of accessory muscles. Abdomen: Soft, obese, bowel tones present, nontender, nondistended. Suprapuic cellulitis with significant purple/red erythema slightly improved, mild warmth and edema improved and induration nearly resolved. Skin folds with nystatin powder and insta-dry to help prevent moisture. Extremities: No clubbing, cyanosis, or edema. Skin: Normal temperature, turgor, and texture; no rash, ulcers, or subcutaneous nodules appreciated. Neurological: Cranial nerves grossly intact. Psychiatric: Normal mood and affect. Alert and oriented to person, place, and time. Objective Labs Result Diagrams: 08/11/20 04:45 08/11/20 04:45 Labs: Laboratory Results - last 24 hr 08/11/20 08/11/20 08/11/20 04:45 04:45 08:15 WBC 11.0 RBC 4.91 Hgb 13.3 L Hct 39.8 L MCV 80.9 MCH 27.1 MCHC 33.4 RDW 14.6 Plt Count 191 Neut % (Auto) 83.5 H Lymph % (Auto) 9.5 L Laurel % (Auto) 6.3 Eos % (Auto) 0.3 L Baso % (Auto) 0.4 Neut # (Auto) 9200 H Lymph # (Auto) 1000 L Laurel # (Auto) 700 Eos # (Auto) 0 Baso # (Auto) 0 Sodium 134 L Potassium 4.5 Chloride 105 Carbon Dioxide 27 BUN 15 Creatinine 0.71 Estimated GFR > 60.0 BUN/Creatinine Ratio 21.1 Glucose 368 H D Calcium 8.6 Magnesium 2.0 Vancomycin Trough 14.3 PFSH Medical History Abnormal liver function tests Alcohol dependence Arthritis Cellulitis (09/07/18) Diverticulosis Ectodermal dysplasia Former smoker Generalized anxiety disorder Hemochromatosis HTN (hypertension) Hyperlipidemia Insulin dependent diabetes mellitus with complications Multifocal PVCs Osteoarthritis Retinoschisis Seasonal allergies Sleep apnea Surgical History History of hip surgery Hx of arthroscopy of left knee (03/19/17) Status post cholecystectomy Social History household members: spouse Smoking Status: Current every day smoker alcohol intake: current Assessment & Plan Assessment & Plan narrative: Amor Carmichael is a 50-year-old male with hypertension, hyperlipidemia, diabetes mellitus type 2, insulin using and poorly controlled, GERD, QUEENIE not on CPAP and Parkinson's disease who developed pain and swelling of suprapubic area and reported high fevers. 1. Acute suprapubic cellulitis, present on admission. Active. -Patient presented with pain and swelling of suprapubic area and reported high fevers x 2 days. -ED physician attempted I&D of indurated area with minimal exudate drainage. Wound culture preliminarily growing group G strep. Blood cultures x 2 have no growth to date. -Initial WBC mildly elevated at 11.4 and procalcitonin < 0.05. WBC now normalized at 11.0 and procalcitonin remains negative < 0.05. Continue to monitor WBC daily. -Received levofloxacin 750 mg IV x 1 and vancomycin in ED. Discontinued vancomycin with dosing per pharmacist as wound cultures have not grown MRSA and switched ceftriaxone to Zosyn 3.375 g every 6 hours to treat Gram positive and negative bacteria, anaerobic bacteria and pseudomonas. -Continue wound care per nursing and keep intertriginous areas clean and dry, apply nystatin powder twice daily and instadry in between skin folds. 2. Diabetes mellitus type 2, insulin using, present on admission. Stable. -Hemoglobin A1c 12.4% indicative of poor glycemic control. -Held home metformin. -Continue equivalent of home Tresiba with Lantus 70 units daily. -Continue ACHS blood glucose checks and high dose correctional scale insulin. -Continue heart healthy/carbohydrate consistent diet. -Consulted journeyman sheet metal worker and we appreciate her time and recommendations. 3. Hypertension, chronic, present on admission. Stable. -Continue home lisinopril 10 mg daily. 4. Hyperlipidemia, chronic, present on admission. Stable. -Continue home simvastatin 10 mg daily. 5. GERD, chronic, present on admission. Stable. -Continue equivalent of home PPI with Protonix 40 mg daily. 6. QUEENIE not on CPAP, chronic, present on admission. Stable. -Patient reports he did not tolerate CPAP well but after discussed necessity and risk if not using patient would like to potentially try his machine again. -Recommend continue CPAP at home and may need to have updated sleep study and will defer to PCP. 7. Parkinson's disease, chronic, present on admission. Stable. -Continue ropinirole 1 mg three times daily. 8. Morbid obesity, chronic, present on admission. Stable. -BMI 45.8. -Due to morbid obesity and poorly controlled diabetes mellitus patient is at high risk of complication from infection and delayed wound healing. -Consulted journeyman sheet metal worker and we appreciate her time and recommendations. Code Status: Full code as discussed with patient and his VTE prophylaxis: Enoxaparin, SCDs Disposition: Patient will likely discharged home in 1-2 days after adequate t reatment of cellulitis with IV antibiotic and has significantly improved. Quality VTE Deep Vein Thrombosis/Pulmonary Embolism Present on Admission: No
[2020-08-11 13:49] LABS: Procalcitonin < 0.05 ng/mL (<0.5)
[2020-08-11 13:50] LABS: Vancomycin Trough 6.5 ug/mL (10-20)
--- NOTE | 2020-08-11 14:30 | DIET.PN ---
Dietary Progress Note Assessment: 50 yo M admitted c cellulitis on his abdomen. Pt has a hx of T2DM, HTN, and HLD. Pt reports that he has not been checking his BG because he gets too busy. He says he also forgets to take his medication as well. Pt H&P notes rx for 2000mg metformin daily, Novolog 20 units BID, and 70 units Tresiba insulin. 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 Pt reports working 16-18hr days. Pt reports that sometimes he starts getting shaky when he does not eat. Pt reports that his first meal is often not until 230pm and it is usually 2 sausage, egg and biscuits or muffins with chips and a diet soda. Pt says dinner is typically a meat with rice. Pt reports that he had some diabetes education 8yrs ago when he was first diagnosed but would like to attend classes again. Pt said he is planning to go back to eating the way he was when he first got diagnosed with diabetes. Pt plans to talk to his about it as well. Pt had questions about starchy vegetables, frozen vegetables and serving sizes of CHO. HT: 180.34cm WT:149kg BMI: 45.8kg (obesity class III) Labs: A1c: 12.4H B on admit, 368 today MNA:14 Antwan:20 Nutrition Diagnosis: Altered nutrition related lab values r/t poor food choices and medication non compliance aeb a1c 12.4, BG 408 on admit, pt reporting skipping meals and eating excess CHO when he does eat, pt reporting that he regularly misses doses of his medication when he gets too busy, and pt requesting additional dietary education. Interventions: 1. Consistent CHO diet, recc 45 CHO/meal and not skipping meals. Educated pt on CCD, foods considered CHO's and recc. serving sizes. Reinforced education with AND Counting Carbohydrates for people with diabetes handout. 2. Recc. checking blood glucose regularly. 3. Pt would benefit from and is interested in outpatient diabetes education. Pt will request referral from his dr. Jesus Gonzalez contact information. Diet Order: CCD
[2020-08-11] MEDS: PIPERACILLIN-TAZO 3.375 GM/50 ML FROZ.PIGGY IV ×2 (14:50→21:42)
--- NOTE | 2020-08-11 15:09 | CM.DPC ---
DCP: continued: case received, EMR reviewed and met with pt. Introduced self and role. Pt confirms that is PCP is Rachael Strauss/[facility]. He says he knows that his diabetes needs to be managed better and has found it challenging to fit appropriate meals into his daily schedule. Dr. Strauss has been giving him some ideas and the [facility] does have a diabetes program but he has not been part of that. He confirms she met with Farzana Sorenson/bicycle subassembler today and that he plans to ask Dr. Strauss for a referral to her program. 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 Pt confirms he expects to go home when stable and his Daisha will be picking him up. He remains at this time on IV antibiotics. Is mobile at baseline; does have a noticeable tremor on L arm and during conversation periodically grabs it to stop the shaking. Dr. Vazquez anticipates pt will go home on oral antibiotics. DCP team will follow prn
[2020-08-11] MEDS: VANCOMYCIN TROUGH 1 REQUEST MISC (15:32)
[2020-08-11] MEDS: SIMVASTATIN 20 MG TABLET 10 MG PO (21:42)
[2020-08-12] MEDS: PIPERACILLIN-TAZO 3.375 GM/50 ML FROZ.PIGGY IV ×2 (02:52→08:43)
[2020-08-12] MEDS: INSULIN ASPART 100 UNIT/ML INSULN PEN SUBCUT ×2 (02:53→08:50)
[2020-08-12 03:53] VITALS: O2SAT 97
--- NOTE | 2020-08-12 04:17 | PC.NURSE ---
pt was awake when this aligner typewriter came in and assessed pt, pt was watching a movie on his laptop and was given water, is sleeping at bedside, pt denies pain, nausea, dizziness. Abcess on the pubic area was red, dry and was covered with 4x4 gauze and reinforced with tape. Pt blood sugar at 0200 am was 363. DORIS Sheffield notified and received orders to give correctional insulin now.
[2020-08-12 05:23] LABS: Add Manual Diff / Slide Review NO; Basophils Absolute Auto 0 /uL (0-100); Basophils Percent Auto 0.2 % (0-2); Eosinophils Absolute Auto 100 /uL (0-450); Eosinophils Percent Auto 0.9 % (2-4); Hematocrit 39.3 % (41-53); Hemoglobin 13.3 g/dL (13.5-17.5); Lymphocytes Absolute Auto 1100 /uL (1100-4500); Lymphocytes Percent Auto 12.3 % (25-40); Mean Corpuscular HGB Conc 33.8 % (30-36); Mean Corpuscular Hemoglobin 26.9 PG (26-34); Mean Corpuscular Volume 79.3 fL (80-100); Monocytes Absolute Auto 600 /uL (0-900); Monocytes Percent Auto 6.5 % (3-14); Neutrophils Absolute Auto 7400 /uL (1500-7000); Neutrophils Percent Auto 80.1 % (50-75); Platelet Count 239 X10^3/uL (150-400); Red Blood Cell Count 4.95 X10^6/uL (4.5-5.9); Red Cell Distribution Width 14.9 % (11.6-14.8); White Blood Cell Count 9.2 X10^3/uL (4.5-11.0)
[2020-08-12 05:29] LABS: Blood Urea Nitrogen 18 mg/dL (9-20); Calcium 8.7 mg/dL (8.4-10.2); Carbon Dioxide 29 mmol/L (22-32); Chloride 103 mmol/L (98-107); Estimated Glomerular Filt Rate > 60.0 mL/min (>60); Glucose 313 mg/dL (70-100); HEMOLYSIS < 15 (0-50); Potassium 4.2 mmol/L (3.4-5.1); Sodium 137 mmol/L (137-145)
[2020-08-12 08:25] VITALS: BP 112/79; PULSE 86; RESP 16; O2SAT 96
[2020-08-12 08:30] VITALS: TEMP 36.2
[2020-08-12 08:42] VITALS: BP 112/79; PULSE 86
[2020-08-12] MEDS: lisinopriL 5 MG TABLET PO (08:42)
[2020-08-12] MEDS: ENOXAPARIN 40 MG/0.4 ML SYRINGE SUBCUT (08:42)
[2020-08-12] MEDS: PANTOPRAZOLE 20 MG TABLET PO (08:42)
[2020-08-12] MEDS: DOCUSATE 100 MG CAPSULE PO (08:42)
[2020-08-12] MEDS: INSULIN GLARGINE 100 UNIT/ML 3ML PEN 70 UNIT SUBCUT (08:47)
[2020-08-12] MEDS: NYSTATIN POWDER 15GM 1 APPLIC TOP (08:54)
[2020-08-12 10:08] VITALS: O2SAT 96
--- NOTE | 2020-08-12 11:09 | P.DS_ITS ---
History of Present Illness History of Present Illness Date Patient Seen: 08/10/20 Chief complaint: states temp of 105, chills Narrative: Written by Madelaine GEORGE: Amor Carmichael was a 50 year old male with diabetes type 2 very poorly controlled, essential hypertension and hyperlipidemia who developed sudden onset fevers overnight recording it is high as 105. He was feeling not very well while he was at work and was apparently sent home. 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 He does not recall having any exposure to anybody with COVID or suspected COVID. He does not endorse having shortness of breath, cough, or shortness of breath. He states that he feels very fatigued and wants to sleep and not have to stay at the hospital. He was having some mild nausea while I was in the room. He denies chest pain, abdominal pain, dysuria, diarrhea or constipation. He does state that he has a area below his pannus that seems to be infected. In the emergency department they did try to drain it however were only able to get enough to send in for wound culture. Chest x-ray done in the ED indicated patchy opacities of the left lung with atelectasis versus pneumonia however follow-up CT of the chest abdomen and pelvis only identified skin thickening and infiltration of the subcutaneous factor in the groin indicating cellulitis without an abscess. They stated that they had not seen any pneumonia. The patient was tested with 2 different COVID- 19 processing machines and both tests were negative. T-max was 100.7? currently is temperature is 100.1?, blood pressure 134/73, heart rate 115, respiratory rate of 18, oxygen saturation 95% on room air, he weighs 149 kg with a BMI of 46. WBC is mildly elevated at 11.4 is hemoglobin is 13.4 hematocrit 39.7, platelet count 214, he has a lymphopenia of 900, sodium 128, potassium 3.9, chloride 96, bicarb 27, BUN 12, creatinine 0.84, GFR is greater than 60, glucose was 408, hemoglobin A1c today was 12.4%, lactate 1.9, alk-phos 131, lactate lipase were within normal limits procalcitonin was also within normal limits he is negative for MRSA as well as COVID-19. Discharge Providers Provider Date of admission: 08/10/20 01:04 Discharge Date: 08/12/20 Primary care physician: Yvette Ellis PA-C Consults: 08/10/20 01:37 Consult to Respiratory Therapy Evaluate & Treat Comment: Physician Instructions: Evaluate and treat 08/10/20 03:44 Consult to Dietitian, Adult Routine Comment: Reason For Exam: High A1c, morbid obesity 08/12/20 09:49 Consult to General Surgery Routine Comment: Consulting Provider: Natan Ortega Reason for consultation: indurated suprapubic cellulitis, possible abscess Has provider been notified: Yes Discharge provider: Alexandra Vazquez DO Summary Hospital Course Discharge Diagnosis: 1. Acute suprapubic cellulitis, present on admission. Resolving. 2. Diabetes mellitus type 2, insulin using, present on admission. Stable. 3. Hypertension, chronic, present on admission. Stable. 4. Hyperlipidemia, chronic, present on admission. Stable. 5. GERD, chronic, present on admission. Stable. 6. QUEENIE not on CPAP, chronic, present on admission. Stable. 7. Parkinson's disease, chronic, present on admission. Stable. 8. Morbid obesity, chronic, present on admission. Stable. Hospital Course: Amor Carmichael is a 50-year-old male with hypertension, hyperlipidemia, diabetes mellitus type 2, insulin using and poorly controlled, GERD, QUEENIE not on CPAP and Parkinson's disease who developed pain and swelling of suprapubic area and reported high fevers. 1. Acute suprapubic cellulitis, present on admission. Resolving. -Patient presented with pain and swelling of suprapubic area and reported high fevers x 2 days. -ED physician attempted I&D of indurated area with minimal exudate drainage. Wound culture preliminarily growing group G strep. Blood cultures x 2 have no growth to date. -Initial WBC mildly elevated at 11.4 and procalcitonin < 0.05. WBC now normalized at 11.0 and procalcitonin remains negative < 0.05. Continue to m onitor WBC daily. -Received levofloxacin 750 mg IV x 1 and vancomycin in ED. Discontinued vancomycin with dosing per pharmacist as wound cultures did not grown MRSA and switched ceftriaxone to Zosyn 3.375 g every 6 hours to treat Gram positive and negative bacteria, anaerobic bacteria and pseudomonas. Discharged home on Augmentin twice daily for 8 additional days to complete 10 day total course of antibiotic treatment. -Continued wound care per nursing and keep intertriginous areas clean and dry, apply nystatin powder twice daily and inter-dry between skin folds. 2. Diabetes mellitus type 2, insulin using, present on admission. Stable. -Hemoglobin A1c 12.4% indicative of poor glycemic control. -Held home metformin and restarted at time of discharge. -Continued equivalent of home Tresiba with Lantus 70 units daily and increased home Tresiba from 70 units to 80 units daily and NovoLog from 20 units to 25 units twice daily. -Continued ACHS blood glucose checks and high dose correctional scale insulin. -Continued heart healthy/carbohydrate consistent diet. -Consulted gas engine operator generators and we appreciate her time and recommendations. 3. Hypertension, chronic, present on admission. Stable. -Continued home lisinopril 10 mg daily. 4. Hyperlipidemia, chronic, present on admission. Stable. -Continued home simvastatin 10 mg daily. 5. GERD, chronic, present on admission. Stable. -Continued equivalent of home PPI with Protonix 40 mg daily. 6. QUEENIE not on CPAP, chronic, present on admission. Stable. -Patient reports he did not tolerate CPAP well but after we discussed necessity and risk of not using CPAP the patient would like to potentially try his machine again. -Recommended he wear his CPAP at home and he may need to have updated sleep study and will defer to PCP. 7. Parkinson's disease, chronic, present on admission. Stable. -Continued ropinirole 1 mg three times daily. 8. Morbid obesity, chronic, present on admission. Stable. -BMI 45.8. -Due to morbid obesity and poorly controlled diabetes mellitus patient is at high risk of complication from infection and delayed wound healing. -Consulted gas engine operator generators and we appreciate her time and recommendations. Exam Vital Signs (past 8 hours): - 08/12/20 03:53 08/12/20 08:25 08/12/20 08:30 Temperature 97.1 F L Pulse Rate 86 Respiratory Rate 16 Blood Pressure 112/79 Pulse Oximetry 97 96 08/12/20 08:42 08/12/20 10:08 Temperature Pulse Rate 86 Respiratory Rate Blood Pressure 112/79 Pulse Oximetry 96 Oxygen Delivery Method Room Air Oxygen Flow Rate 0 Narrative Exam Narrative: General: Middle aged morbidly obese male sitting in bedside chair comfortably and in no acute distress, well-developed, well-nourished, appropriately interactive. HEENT: Normocephalic, atraumatic. External ears without defect. Pupils equal, round, and reactive to light. Anicteric sclerae, moist conjunctivae, and no lid lag. Oropharynx free of erythema and cobble stoning with moist mucosa. Neck: Supple with full range of motion. No lymphadenopathy or thyromegaly. Cardiovascular: Regular rate and rhythm without murmurs, rubs, or gallops appreciated. Pulmonary: Clear to auscultation bilaterally without crackles, wheezes, or rhonchi. Normal respiratory effort with no use of accessory muscles. Abdomen: Soft, obese, bowel tones present, nontender, nondistended. Suprapuic cellulitis with purple/red erythema, mild edema and induration resolving. Skin folds with nystatin powder and inter-dry to help prevent moisture. Extremities: No clubbing, cyanosis, or edema. Skin: Normal temperature, turgor, and texture; no rash, ulcers, or subcutaneous nodules appreciated. Neurological: Cranial nerves grossly intact. Psychiatric: Normal mood and affect. Alert and oriented to person, place, and time. Objective Labs Result Diagrams: 08/12/20 04:55 08/12/20 04:55 Labs: Laboratory Results - last 24 hr 08/11/20 08/11/20 08/12/20 12:59 12:59 04:55 WBC 9.2 RBC 4.95 Hgb 13.3 L Hct 39.3 L MCV 79.3 L MCH 26.9 MCHC 33.8 RDW 14.9 H Plt Count 239 Neut % (Auto) 80.1 H Lymph % (Auto) 12.3 L Potter % (Auto) 6.5 Eos % (Auto) 0.9 L Baso % (Auto) 0.2 Neut # (Auto) 7400 H Lymph # (Auto) 1100 Potter # (Auto) 600 Eos # (Auto) 100 Baso # (Auto) 0 Sodium Potassium Chloride Carbon Dioxide BUN Creatinine Estimated GFR BUN/Creatinine Ratio Glucose Calcium Procalcitonin < 0.05 Vancomycin Trough 6.5 L 08/12/20 04:55 WBC RBC Hgb Hct MCV MCH MCHC RDW Plt Count Neut % (Auto) Lymph % (Auto) Potter % (Auto) Eos % (Auto) Baso % (Auto) Neut # (Auto) Lymph # (Auto) Potter # (Auto) Eos # (Auto) Baso # (Auto) Sodium 137 Potassium 4.2 Chloride 103 Carbon Dioxide 29 BUN 18 Creatinine 0.62 L Estimated GFR > 60.0 BUN/Creatinine Ratio 29.0 H Glucose 313 H Calcium 8.7 Procalcitonin Vancomycin Trough [facility] Medical History Abnormal liver function tests Alcohol dependence Arthritis Cellulitis (09/07/18) Diverticulosis Ectodermal dysplasia Former smoker Generalized anxiety disorder Hemochromatosis HTN (hypertension) Hyperlipidemia Insulin dependent diabetes mellitus with complications Multifocal PVCs Osteoarthritis Retinoschisis Seasonal allergies Sleep apnea Surgical History History of hip surgery Hx of arthroscopy of left knee (03/19/17) Status post cholecystectomy Social History household members: spouse Smoking Status: Current every day smoker alcohol intake: current Discharge Plan Discharge Plan Patient Disposition: Home Provider Discharge Comment: You are being discharged home. You had cellulitis of your suprapubic area. Please keep this area clean and dry. You have been prescribed Augmentin twice daily for 7 additional days to complete 10 day course of antibiotic treatment. You may use nystatin powder twice daily as needed to and prevent and treat yeast rash in skin folds. Your diabetes is very poorly controlled and your Tresiba was increased from 70 units to 80 units daily and NovoLog increased from 20 units twice daily to 25 units twice daily. Continue to work on lifestyle modification including diet and exercise to lose 5-10% of your body weight which will help significantly with diabetic control. Recommend you wear your CPAP at night to treat obstructive sleep apnea as this can lead to heart failure, heart attack, stroke and early onset dementia. You may need an updated sleep study to have your appliance settings adjusted in you may discuss this with your primary care physician. Please quit smoking as this increases your risk of heart attack and stroke. Please follow-up with your primary care physician, Dr. Charles, in the next 1 week regarding your hospitalization and to continue diabetic management. Discharge orders & Medications Prescriptions: New nystatin [Nystop] 100,000 unit/gram Powder 1 applic topical BID PRN (Reason: Rash) Qty: 30 RF: 0 amoxicillin-pot clavulanate [Augmentin] 875-125 mg tablet 1 tab PO BID Qty: 16 RF: 0 Continued simvastatin 10 MG tablet 10 mg PO DAILY Qty: 0 RF: 0 loratadine 10 MG tablet 10 mg PO DAILY Qty: 0 RF: 0 omeprazole 20 mg Capsule,Delayed Release(Dr/Ec) 40 mg PO DAILY RF: 0 fluticasone propionate 50 mcg/actuation [place],Suspension 50 mcg intranasal Q OTHER DAY RF: 0 lisinopril 10 mg Tablet 10 mg PO DAILY RF: 0 metformin 500 mg Tablet 2,000 mg PO DAILY RF: 0 ropinirole 0.5 mg Tablet 1 mg PO TID RF: 0 meclizine 12.5 mg Tablet 25 mg PO DAILY RF: 0 Changed insulin aspart U-100 [Novolog Flexpen U-100 Insulin] 100 UNIT/1 ML insulin pen 25 unit SQ BID Qty: 0 RF: 0 Tresiba FlexTouch U-100 100 unit/mL (3 mL) Insulin Pen 80 unit subcut DAILY Qty: 0 RF: 0 Follow up/Referrals: Rachael Charles MD [Non-Staff] - 1 Week Diet/Activity/Treatments Diet: Carb-consistent/Diabetic, Low-fat, Low-sodium and Low-cholesterol Activity: Activity as tolerated Skin/Wound/Dressing Care Other wound treatment: Keep area clean and dry, do not apply ointments, lotions or topical medications other than nystatin powder to skin folds Visit Report/Discharge Packet Instructions: DI for Cellulitis -- Adult, 'Diet Plate' May Help People With Diabetes Lose Weight, Eating a Diet Low in Saturated Fat, Trans Fat, and Cholesterol, The Mediterranean Diet and Good Health, Reducing Your Risk of Heart Disease When You Have Diabetes, Low-Carbohydrate Diet (Alternative Therapy), DI for Diabetes Type 2, What to Eat if You Have Diabetes Discharge Data Primary Care Provider: Yvette Ellis VTE Deep Vein Thrombosis/Pulmonary Embolism Present on Admission: No
--- NOTE | 2020-08-12 12:08 | PC.NURSE ---
Day shift note: Patient cleared for discharge by Dr. Vazquez. Discharge instructions and education given to patient and . Patient dressed independently. Home via private vehicle with .
--- NOTE | 2020-08-12 12:49 | CM.DPC ---
DCP: continued: pt now with d/c orders for home. His was here and he left for home as planned. Anticipates following up with diabetic clinic.
== END 2020-08-12 12:17 | disposition home or self-care (01) | DRG 603 ==
LOC: ED 08-10 01:01 → AC 08-10 01:04
PROVIDERS: Internal Medicine; Admitting Provider Nurse Practitioner Family; Emergency Provider Emergency Medicine; PCP Physician Assistant; Referring Provider Emergency Medicine; Visit Provider Nurse Practitioner Family
DX: L03.311 Cellulitis of abdominal wall (principal); Z68.42 Body mass index [BMI] 45.0-49.9, adult; E87.1 Hypo-osmolality and hyponatremia; E66.01 Morbid (severe) obesity due to excess calories; E11.65 Type 2 diabetes mellitus with hyperglycemia; I10 Essential (primary) hypertension; E78.5 Hyperlipidemia, unspecified; Z20.828 Contact with and (suspected) exposure to other viral communicable diseases; K21.9 Gastro-esophageal reflux disease without esophagitis; G47.33 Obstructive sleep apnea (adult) (pediatric); G20 Parkinson's disease
CPT/HCPCS: 10060; 36415; 71045; 71260; 74177; 80048; 80053; 80202; 81003; 82728; 82962; 83036; 83605; 83615; 83690; 83735; 84145; 85025; 85379; 85610; 85730; 87040; 87070; 87075; 87077; 87147; 87186; 87205; 87635; 87797; 93005; 93010; 96361; 96365; 96366; 96375; 99283; 99284; J0696; J1650; J1956; J2405; J2543; Q9967

== ENCOUNTER → 2020-10-24 16:06 | Outpatient (CLI) | payer OTHER, SELFPAY ==
[2020-08-10 01:15] VITALS: BMI 46.0
--- NOTE | 2020-10-24 16:11 | DI.RAD.S_ITS ---
PROCEDURE: XR LUMBAR SPINE 2-3V INDICATIONS: LUMBAR RADICULAR PAIN TECHNIQUE: 3 views of the lumbar spine were acquired. COMPARISON: [facility], , -SPINE 2-3 VIEWS, 12/01/2014, 11:08. FINDINGS: Bones: 5 [id number] vertebrae are present. There is normal bony alignment. No vertebral body compression fractures. No suspicious bony lesions. Multilevel flowing syndesmophytes present. Mild multilevel disc degeneration and mild facet joint arthropathy at the L4-L5 and L5-S1 levels. There is trace spondylolisthesis L5-S1 where pars interarticularis defect may be present. There is severe bilateral SI joint narrowing. Soft tissues: Overlying bowel gas pattern is normal. No suspicious soft tissue calcifications. IMPRESSION: 1. Prominent multilevel flowing syndesmophytes and severe narrowing of the SI joints bilaterally which can be associated with ankylosing spondylitis. Correlate clinically. 2. Multilevel spondylosis and possible pars interarticularis defect at the L5-S1 level. Dictated by: Jorge Alberto Finnegan [facility] Interpreted: Brian Elaine MD on 10/24/2020 at 16:51 Approved by: Brian Elaine M.D. on 10/24/2020 at 17:00
== END ==
PROVIDERS: PCP Family Medicine; Referring Provider Family Medicine; Visit Provider Family Medicine
DX: M47.27 Other spondylosis with radiculopathy, lumbosacral region (principal); M47.26 Other spondylosis with radiculopathy, lumbar region
CPT/HCPCS: 72100

== ENCOUNTER → 2020-11-07 15:18 | Outpatient (CLI) | payer OTHER, SELFPAY ==
[2020-08-10 01:15] VITALS: BMI 46.0
--- NOTE | 2020-11-07 16:35 | DIET.PN ---
Diabetes Intake: Initial Assessment Assess: Mr. Carmichael is a 50 yom with long standing hx of type 2 diabetes (8 yrs). He was recently hospitalized for pneumonia when he found out the progression of his diabetes. He has a Freestyle [employer] CGM which he has not been using. 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 He does not feel like exercising when he gets off work (shift 4am-1pm). Admits biggest issue is mid-night snacking. Labs: Per pt report: A1c: 12.4 Meds: metformin xr 2000mg qd ; tresiba 80 u ; novolog 25 u before evening meal ; bydurion 2mg q weekly Diet: per 24 hr recall: B: sausage egg sandwich (gas station) x2 w/ sugar free redbull Sn: fruit L: skips D: protein, rice, vegetable Night time sn: chips, fruit Wt: 344lb Ht: 72in BMI: 46.6 BP: DX: Altered nutrition related laboratory values related to impaired glucose metabolism, lack of previous exposure to nutrition information as evidenced by pt report, diagnosis of diabetes, previous diet high in refined carbohydrates. Intervention: 1. Completed intake assessment. Discussed barriers to care. 2. Discussed pathophysiology of diabetes. Reviewed A1c and its correlation to blood glucose numbers. Discussed recommended BG ranges. 3. Discussed importance of self-monitoring, how often, and when to check. 4. Reviewed hyper/hypoglycemia and treatment. 5. Reviewed safe disposal of equipment (strip/lancets/insulin needles). 6. Created SMART goals for pt self-care and success. 7. Discussed program curriculum outline and class needs based on individual goals. SMART Goals: 1. Pt goal weight of <300 through better dietary habits, learning portion control and carb counting. Monitor/Evaluate: Pt will attend full DSME program. Basic Nutrition class scheduled for Dec 05.
== END ==
PROVIDERS: PCP Family Medicine; Referring Provider Family Medicine; Visit Provider Family Medicine
DX: E11.9 Type 2 diabetes mellitus without complications (principal); E66.9 Obesity, unspecified; Z68.42 Body mass index [BMI] 45.0-49.9, adult; Z79.4 Long term (current) use of insulin; Z71.3 Dietary counseling and surveillance
CPT/HCPCS: G0108

== ENCOUNTER → 2020-12-05 13:45 | Outpatient (CLI) | payer OTHER, SELFPAY ==
[2020-08-10 01:15] VITALS: BMI 46.0
--- NOTE | 2020-12-05 15:16 | DIET.PN ---
Diabetes: Healthy Eating 1 Intervention: ? Discussed pathophysiology of diabetes and impact of nutrition/diet on blood sugar control.? Discussed fed versus non-fed state.?? ? Reviewed importance of Balance, Variety, and Moderation. ? Discussed the effect of carbohydrates/protein/fat on blood sugar control.? ? Stressed importance of consistent carbohydrate intake at each meal and provided instructions for recommended servings/portions of carbohydrates/protein per meal. Provided educational material. ? Reviewed carbohydrate counting and measuring carbohydrate content via serving sizes and reading nutrition labels.? Provided handouts.?? ? Discussed the difference between simple versus complex carbohydrates and the effect of fiber on blood sugar control.? Discussed various methods to increase fiber content in diet. ? Discussed the plate method for creating more carbohydrate conscious balanced meals. ? Stressed importance of meal timing and not going >4-5 hours between meals. Encouraged adding protein to evening snack to support glucose control overnight. ? Discussed importance of making dietary habits part of lifestyle change.
== END ==
PROVIDERS: PCP Family Medicine; Referring Provider Family Medicine; Visit Provider Family Medicine
DX: E11.9 Type 2 diabetes mellitus without complications (principal); Z71.3 Dietary counseling and surveillance
CPT/HCPCS: G0109

== ENCOUNTER → 2021-01-03 16:00 | Outpatient (CLI) | payer OTHER, SELFPAY ==
[2020-08-10 01:15] VITALS: BMI 46.0
== END ==
PROVIDERS: PCP Family Medicine; Referring Provider Family Medicine; Visit Provider Family Medicine
DX: M54.16 Radiculopathy, lumbar region (principal); Z53.20 Procedure and treatment not carried out because of patient's decision for unspecified reasons

== ENCOUNTER → 2022-02-21 15:46 | Outpatient (CLI) | payer OTHER, SELFPAY ==
[2020-08-10 01:15] VITALS: BMI 46.0
--- NOTE | 2022-02-21 | DI.RAD.S_ITS ---
PROCEDURE: XR CHEST 2V INDICATIONS: COUGH TECHNIQUE: 2 views of the chest were acquired. COMPARISON: [facility], CR, XR CHEST 2V, 09/10/2019, 14:42. FINDINGS: Surgical changes and devices: None. Lungs and pleura: Lungs are clear. No pleural effusions or pneumothorax. Mediastinum: Mediastinal contours are normal. Heart size is normal. Bones and chest wall: No suspicious bony abnormalities. Soft tissues appear unremarkable. IMPRESSION: No acute cardiopulmonary process demonstrated radiographically. Dictated by: Marquise Cabrera M.D. on 02/21/2022 at 16:27 Approved by: Marquise Cabrera M.D. on 02/21/2022 at 16:27
== END ==
PROVIDERS: PCP Family Medicine; Referring Provider Family Medicine; Visit Provider Family Medicine
DX: R05.9 Cough, unspecified (principal)
CPT/HCPCS: 71046

== ENCOUNTER → 2022-04-25 19:49 | Outpatient (CLI) | payer OTHER, SELFPAY ==
[2020-08-10 01:15] VITALS: BMI 46.0
--- NOTE | 2022-04-25 | DI.RAD.S_ITS ---
PROCEDURE: XR SHOULDER LT MIN 2V INDICATIONS: impingement syndrome, shoulder, left TECHNIQUE: 3 views of the shoulder were acquired. COMPARISON: None. FINDINGS: Bones: No acute fractures or dislocations. No suspicious bony lesions. Visualized ribs appear intact. Moderate degenerative changes are seen in the acromioclavicular joint. Soft tissues: No suspicious soft tissue calcifications. IMPRESSION: Moderate acromioclavicular osteoarthrosis. Dictated by: Jeffrey Chan M.D. on 04/26/2022 at 10:35 Approved by: Jeffrey Chan M.D. on 04/26/2022 at 10:37
== END ==
PROVIDERS: PCP Family Medicine; Referring Provider Family Medicine; Visit Provider Family Medicine
DX: M75.42 Impingement syndrome of left shoulder (principal); M19.012 Primary osteoarthritis, left shoulder
CPT/HCPCS: 73030

== ENCOUNTER → 2022-06-03 12:17 | Outpatient (CLI) | payer OTHER, SELFPAY ==
[2020-08-10 01:15] VITALS: BMI 46.0
--- NOTE | 2022-06-03 | DI.RAD.S_ITS ---
PROCEDURE: XR CERVICAL SPINE 4V OR 5V INDICATIONS: LEFT ARM WEAKNESS TECHNIQUE: Five views of the cervical spine acquired. COMPARISON: None. FINDINGS: Bones: No fractures or dislocations to the T1 level. There is straightening of the normal cervical lordosis and trace anterolisthesis C6 on seven. There are anterior endplate osteophytes. Minimal uncovertebral joint hypertrophy or facet arthropathy. Oblique images demonstrate no significant bony foraminal stenoses. Soft tissues: No prevertebral soft tissue swelling. IMPRESSION: 1. Cervical straightening with trace anterolisthesis C6-7. 2. Oblique images demonstrate no significant bony foraminal narrowing. Dictated by: Radha Patino M.D. on 06/03/2022 at 16:19 Approved by: Radha Patino M.D. on 06/03/2022 at 16:21
== END ==
PROVIDERS: PCP Family Medicine; Referring Provider Family Medicine; Visit Provider Family Medicine
DX: R29.898 Other symptoms and signs involving the musculoskeletal system (principal)
CPT/HCPCS: 72050

== ENCOUNTER 2022-11-18 00:03 | Inpatient (IN) | payer OTHER, SELFPAY ==
[2020-08-10 01:15] VITALS: BMI 46.0
[2022-11-18] VITALS (19 sets, daily range): BP systolic 94–137; BP diastolic 53–87; PULSE 76–141; RESP 11–32; TEMP 35.7–37.4; O2SAT 92–97; BMI 46.0
--- NOTE | 2022-11-18 00:25 | DI.RAD.S_ITS ---
PROCEDURE: XR CHEST 1V INDICATIONS: suspected sepsis TECHNIQUE: One view of the chest was acquired. COMPARISON: [facility], CR, XR CHEST 2V, 02/21/2022, 15:53. FINDINGS: Surgical changes and devices: None. Lungs and pleura: Lungs are clear. No pleural effusions or pneumothorax. Mediastinum: Mediastinal contours appear normal. Heart size is normal. Bones and chest wall: No suspicious bony lesions. Overlying soft tissues appear unremarkable. IMPRESSION: 1. No acute cardiopulmonary disease. Dictated by: Leonides Marsh M.D. on 11/18/2022 at 2:16 Approved by: Leonides Marsh M.D. on 11/18/2022 at 2:16
[2022-11-18] MEDS: SODIUM CHLORIDE 0.9% 1,000 ML 1000 ML IV ×2 (00:48→02:27)
[2022-11-18 00:55] LABS: Appearance Urine UA Slightly Cloudy; Bilirubin Urine UA NEGATIVE (NEGATIVE); Color Urine UA YELLOW; Glucose Urine UA 3+ g/dL (Negative); Ketones Urine UA TRACE (NEGATIVE); Leukocyte Esterase Urine UA NEGATIVE (NEGATIVE); Nitrite Urine UA POSITIVE (Negative); Occult Blood Urine UA NEGATIVE (Negative); Protein Urine UA 2+ (Negative); Specific Gravity Urine UA 1.025 (1.000-1.035)
[2022-11-18 00:56] LABS: Bacteria Urine Moderate (10-30); Mucus Urine 1+ (Negative); RBC Urine None Seen (0-5/HPF); Squamous Epithelial Cell Urine 0-1 /HPF (0-5/HPF); WBC Urine 30-100/HPF (0-5/HPF)
--- NOTE | 2022-11-18 00:56 | PC.NURSE ---
Pt reports burning, frequency, urgency and little stream for past 3-4 days, also having intermittent SOB. Pt also has a large bleeding wound on his right calf after slipping and falling on some wet wood about two weeks ago. Pt reports hx of parkinson's, diabetes, and htn. Denies chest pain. Call light within reach. Encouraged to use for needs.
[2022-11-18 00:57] LABS: Add Manual Diff / Slide Review NO; Basophils Absolute Auto 100 /uL (0-100); Basophils Percent Auto 0.4 % (0-2); Eosinophils Absolute Auto 0 /uL (0-450); Eosinophils Percent Auto 0.1 % (2-4); Hematocrit 40.7 % (41-53); Hemoglobin 13.7 g/dL (13.5-17.5); Lymphocytes Absolute Auto 1200 /uL (1100-4500); Lymphocytes Percent Auto 7.1 % (25-40); Mean Corpuscular HGB Conc 33.7 % (30-36); Mean Corpuscular Hemoglobin 27.4 PG (26-34); Mean Corpuscular Volume 81.3 fL (80-100); Monocytes Absolute Auto 1100 /uL (0-900); Monocytes Percent Auto 6.4 % (3-14); Neutrophils Absolute Auto 14100 /uL (1500-7000); Platelet Count 292 X10^3/uL (150-400); Red Blood Cell Count 5.01 X10^6/uL (4.5-5.9); Red Cell Distribution Width 15.2 % (11.6-14.8); White Blood Cell Count 16.4 X10^3/uL (4.5-11.0)
[2022-11-18 00:57] LABS: Culture Indicated Urine Specimen Cultured
[2022-11-18 01:08] LABS: INR 1.2 (0.9-1.3); Prothrombin Time 13.3 SECONDS (10.1-12.7)
[2022-11-18 01:11] LABS: PTT Partial Thromboplastin Tim 33 SECONDS (26-36)
[2022-11-18 01:11] LABS: Influenza A - CEPHEID Flu A NEGATIVE (NEGATIVE); Influenza B - CEPHEID Flu B NEGATIVE (NEGATIVE); Respiratory Syncytial Virus Negative (Negative)
[2022-11-18 01:12] LABS: COVID-19 CEPHEID 4-PLEX PCR Negative (Negative)
[2022-11-18 01:14] LABS: Alanine Aminotransferase 27 IU/L (<50); Albumin 4.5 g/dL (3.5-5.0); Albumin Globulin Ratio 1.2 (1.0-2.8); Alkaline Phosphatase 123 U/L (38-126); Aspartate Aminotransferase 28 IU/L (17-59); Bilirubin Total 0.9 mg/dL (0.2-1.3); Blood Urea Nitrogen 15 mg/dL (9-20); Calcium 8.9 mg/dL (8.4-10.2); Carbon Dioxide 24 mmol/L (22-32); Chloride 102 mmol/L (98-107); Estimated Glomerular Filt Rate > 60 mL/min (>60); Globulin 3.8 g/dL (1.7-4.1); Glucose 189 mg/dL (70-100); HEMOLYSIS < 15 (0-50); Lipase 28 U/L (23-300); Sodium 137 mmol/L (137-145); Total Protein 8.3 g/dL (6.3-8.2)
[2022-11-18 01:15] LABS: Lactate (Lactic Acid) 1.9 mmol/L (0.7-2.1)
[2022-11-18] MEDS: cefTRIAXone 2,000 MG in SODIUM CHLORIDE 0.9% 100 ML 200 MG IV (01:23)
[2022-11-18 01:28] LABS: Potassium 3.7 mmol/L (3.4-5.1)
[2022-11-18 01:31] LABS: Procalcitonin 0.05 ng/mL (<0.5)
--- NOTE | 2022-11-18 02:13 | ED.MALEGU ---
HPI - Male Genitourinary General Chief complaint: Urogenital-Male Stated complaint: cough, bodyaches, chest hurting when coughing Time Seen by Provider: 11/18/22 00:27 Source: patient Mode of arrival: Wheelchair History of Present Illness HPI Narrative: 52-year-old male daily smoker with history of diabetes, hyperlipidemia, presents with family in the chief complaint of about 1 week of fever, chills and body aches as well as urinary complaints such as dysuria, frequency and urgency. He is fatigued and very worn out. He has been nauseated but denies any vomiting. He has had some dry and hacking cough but denies significant shortness of breath. Related Data Home Medications Medication Instructions Recorded Confirmed simvastatin 10 mg tablet 10 mg PO DAILY ##0 03/19/17 08/10/20 loratadine 10 mg tablet 10 mg PO DAILY ##0 09/02/17 08/10/20 fluticasone propionate 50 50 mcg intranasal Q OTHER DAY 09/11/18 08/10/20 mcg/actuation nasal spray,suspension omeprazole 20 mg capsule,delayed 40 mg PO DAILY 09/11/18 08/10/20 release lisinopril 10 mg tablet 10 mg PO DAILY 08/10/20 08/10/20 meclizine 12.5 mg tablet 25 mg PO DAILY 08/10/20 08/10/20 metformin 500 mg tablet 2,000 mg PO DAILY 08/10/20 08/10/20 ropinirole 0.5 mg tablet 1 mg PO TID 08/10/20 08/10/20 Previous Rx's Medication Instructions Recorded amoxicillin 875 mg-potassium 1 tab PO BID #16 tabs 08/12/20 clavulanate 125 mg tablet (Augmentin) insulin aspart U-100 100 unit/mL 25 unit (0.25 mL) SQ BID #0 mL 08/12/20 (3 mL) subcutaneous pen (Novolog FlexPen U-100 Insulin aspart) insulin degludec 100 unit/mL (3 80 unit (0.8 mL) SUBCUT DAILY #0 mL 08/12/20 mL) subcutaneous pen (Tresiba FlexTouch U-100 insulin) nystatin 100,000 unit/gram topical 1 applic topical BID PRN Rash #30 08/12/20 powder (Nystop) grams Allergies Allergy/AdvReac Type Severity Reaction Status Date / Time celecoxib [CELECOXIB] AdvReac Mild MADE MY Verified 11/07/20 15:49 HEART HURT Review of Systems Review of Systems Narrative: GENERAL: See HPI HEENT: Denies sinus pain, ear pain, sore throat, difficulty swallowing, dizziness. RESPIRATORY: See HPI CARDIOVASCULAR: See HPI GASTROINTESTINAL: See HPI : See HPI MUSCULOSKELETAL: denies weakness, joint pain, or bony pain SKIN: Denies rash, skin lesions, or other NEUROLOGIC: Denies weakness, headache, numbness, change in speech, confusion, seizures, incoordination. PSYCHIATRIC: No concerning psychosocial issues. 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 Well-developed patient, in moderate distress, ill-appearing HEAD: Atraumatic. Normocephalic. EYES: Pupils equal round and reactive. Extraocular motions intact. No scleral icterus. No injection or drainage. ENT: Nose without bleeding, purulent drainage. Throat without erythema, tonsillar hypertrophy or exudate. Airway patent. NECK: Trachea midline. Non tender CARDIOVASCULAR: Tachycardic but regular rhythm without murmurs, gallops, or rubs. RESPIRATORY: Clear to auscultation. Breath sounds equal bilaterally. No wheezes, rales, or rhonchi. GASTROINTESTINAL: Abdomen soft, non-tender, nondistended. EXTREMITIES: No edema or joint tenderness. BACK: layboy tender but free of any obvious external abnormalities. Patient exam notes decreased range of motion and muscle spasm, but no CVA tenderness, or vertebral point tenderness. There are no symptoms of cauda equina such as saddle anesthesia, and decreased reflexes, decreased sensation or strength. NEURO: AOx3. SKIN: No rash or erythema of visible areas Initial Vital Signs Initial Vital Signs: Vital Signs Temperature 99.4 F 11/18/22 00:16 Pulse Rate 132 H 11/18/22 00:16 Respiratory Rate 17 11/18/22 00:16 Blood Pressure 94/53 L 11/18/22 00:16 Pulse Oximetry 97 11/18/22 00:16 Oxygen Delivery Method Room Air 11/18/22 00:16 Course Orders Ordered: ED Orders 11/18/22 00:25 XR chest 1V Stat Covid-19 + FLU A/B + RSV - PCR Stat EKG-12 Lead Stat RT Consult Eval and Treat NOW 11/18/22 00:30 Urinalysis and Microscopic Stat Urine Culture Stat 11/18/22 00:51 Complete Blood Count AUTO DIFF Stat Comprehensive Metabolic Panel Stat D Dimer Stat Lactate (Lactic Acid) Stat Lipase Stat PTT Partial Thromboplastin Mandeep Stat Procalcitonin Stat Prothrombin Time INR Stat Troponin & CK Cardiac Panel Stat 11/18/22 01:05 Blood Culture Stat Ondansetron HCl (Ondansetron 4 Mg Odt) 4 mg SL NOW PRN PRN Reason: Nausea And Vomiting Ondansetron HCl (Ondansetron 4 Mg/2 Ml Inj) 4 mg IV NOW PRN PRN Reason: Nausea And Vomiting Discontinued Medications Sodium Chloride (Normal Saline 0.9%) 1,000 mls @ 1,000 mls/hr IV BOLUS ONE Stop: 11/18/22 01:24 Last Infusion: 11/18/22 02:13 Dose: 0 mls/hr Documented By: Admin: 11/18/22 00:48 Dose: 1,000 mls/hr Documented By: ALYSSIA Ceftriaxone Sodium 2,000 mg/ (Sodium Chloride) 100 mls @ 200 mls/hr IV NOW ONE Stop: 11/18/22 01:12 Last Infusion: 11/18/22 02:04 Dose: 0 mls/hr Documented By: Admin: 11/18/22 01:23 Dose: 200 mls/hr Documented By: ALYSSIA Sodium Chloride (Normal Saline 0.9%) 1,000 mls @ 1,000 mls/hr IV BOLUS ONE Stop: 11/18/22 03:12 Last Admin: 11/18/22 02:27 Dose: 1,000 mls/hr Documented By: SARAY Acetaminophen (Ofirmev) 1,000 mg in 100 mls @ 400 mls/hr IV NOW ONE Stop: 11/18/22 02:27 Last Infusion: 11/18/22 02:45 Dose: 0 mls/hr Documented By: Admin: 11/18/22 02:27 Dose: 400 mls/hr Documented By: SARAY Vital Signs Vital signs: Vital Signs - 8 hr 11/18/22 00:16 11/18/22 00:41 11/18/22 00:43 Temperature 99.4 F Pulse Rate 132 H 133 H 131 H Respiratory Rate 17 25 H 32 H Blood Pressure 94/53 L Pulse Oximetry 97 Oxygen Delivery Method Room Air 11/18/22 00:43 11/18/22 01:08 11/18/22 01:10 Temperature Pulse Rate 141 H 133 H Respiratory Rate 32 H Blood Pressure 135/79 Pulse Oximetry 96 Oxygen Delivery Method Room Air 11/18/22 01:10 11/18/22 01:30 11/18/22 01:30 Temperature Pulse Rate 120 H Respiratory Rate 31 H Blood Pressure 129/87 127/78 Pulse Oximetry 95 Oxygen Delivery Method 11/18/22 02:00 11/18/22 02:00 Temperature Pulse Rate 125 H Respiratory Rate 30 H Blood Pressure 137/79 Pulse Oximetry 95 Oxygen Delivery Method MDM - Male Genitourinary Lab Data 11/18/22 00:51 11/18/22 00:51 Labs: Lab Results 11/18/22 11/18/22 11/18/22 Range/Units 00:25 00:30 00:51 WBC 16.4 H (4.5-11.0) X10^3/uL RBC 5.01 (4.5-5.9) X10^6/uL Hgb 13.7 (13.5-17.5) g/dL Hct 40.7 L (41-53) % MCV 81.3 (80-100) fL MCH 27.4 (26-34) PG MCHC 33.7 (30-36) % RDW 15.2 H (11.6-14.8) % Plt Count 292 (150-400) X10^3/uL Neut % (Auto) 86.0 H (50-75) % Lymph % (Auto) 7.1 L (25-40) % [place] % (Auto) 6.4 (3-14) % Eos % (Auto) 0.1 L (2-4) % Baso % (Auto) 0.4 (0-2) % Neut # (Auto) 90071 H (7530-5539) /uL Lymph # (Auto) 1200 (9287-2712) /uL [place] # (Auto) 1100 H (0-900) /uL Eos # (Auto) 0 (0-450) /uL Baso # (Auto) 100 (0-100) /uL PT (10.1-12.7) SECONDS INR (0.9-1.3) APTT (26-36) SECONDS D-Dimer (<500) ng/ml Sodium (137-145) mmol/L Potassium (3.4-5.1) mmol/L Chloride (98-107) mmol/L Carbon Dioxide (22-32) mmol/L BUN (9-20) mg/dL Creatinine (0.66-1.25) mg/dL Estimated GFR (>60) mL/min BUN/Creatinine Ratio (6-22) Glucose (70-100) mg/dL Lactate (0.7-2.1) mmol/L Calcium (8.4-10.2) mg/dL Total Bilirubin (0.2-1.3) mg/dL AST (17-59) IU/L ALT (<50) IU/L Alkaline Phosphatase (38-126) U/L Total Creatine Kinase (55-170) U/L CK-MB (CK-2) (<2.37) ng/mL CK-MB (CK-2) Rel Index (1.5-5.0) % Troponin I (0.01-0.034) ng/mL Total Protein (6.3-8.2) g/dL Albumin (3.5-5.0) g/dL Globulin (1.7-4.1) g/dL Albumin/Globulin Ratio (1.0-2.8) Lipase (23-300) U/L Procalcitonin (<0.5) ng/mL Urine Color Yellow Urine Appearance Slightly cloudy Urine pH 6.0 (4.5-8.0) Ur Specific [place] 1.025 (1.000-1.035) Urine Protein 2+ H (Negative) Urine Glucose (UA) 3+ H (Negative) g/dL Urine Ketones Trace H (NEGATIVE) Urine Occult Blood Negative (Negative) Urine Nitrate Positive H (Negative) Urine Bilirubin Negative (NEGATIVE) Urine Urobilinogen 4.0 H (0.2) E.U./dL Ur Leukocyte Esterase Negative (NEGATIVE) Urine RBC None seen (0-5/HPF) Urine WBC 30-100/hpf H (0-5/HPF) Ur Squamous Epith Cells 0-1 /hpf (0-5/HPF) Urine Bacteria Moderate (10-30) H (None) Urine Mucus 1+ H (Negative) Ur Culture Indicated? Specimen cultured SARS-CoV-2 (PCR) Negative (Negative) Influenza A (RT-PCR) Flu a negative (NEGATIVE) Influenza B (RT-PCR) Flu b negative (NEGATIVE) RSV (PCR) Negative (Negative) 11/18/22 11/18/22 11/18/22 Range/Units 00:51 00:51 00:51 WBC (4.5-11.0) X10^3/uL RBC (4.5-5.9) X10^6/uL Hgb (13.5-17.5) g/dL Hct (41-53) % MCV (80-100) fL MCH (26-34) PG MCHC (30-36) % RDW (11.6-14.8) % Plt Count (150-400) X10^3/uL Neut % (Auto) (50-75) % Lymph % (Auto) (25-40) % [place] % (Auto) (3-14) % Eos % (Auto) (2-4) % Baso % (Auto) (0-2) % Neut # (Auto) (7559-9002) /uL Lymph # (Auto) (1548-8899) /uL [place] # (Auto) (0-900) /uL Eos # (Auto) (0-450) /uL Baso # (Auto) (0-100) /uL PT 13.3 H (10.1-12.7) SECONDS INR 1.2 (0.9-1.3) APTT 33 (26-36) SECONDS D-Dimer (<500) ng/ml Sodium 137 (137-145) mmol/L Potassium 3.7 (3.4-5.1) mmol/L Chloride 102 (98-107) mmol/L Carbon Dioxide 24 (22-32) mmol/L BUN 15 (9-20) mg/dL Creatinine 0.60 L (0.66-1.25) mg/dL Estimated GFR > 60 (>60) mL/min BUN/Creatinine Ratio 25.0 H (6-22) Glucose 189 H (70-100) mg/dL Lactate 1.9 (0.7-2.1) mmol/L Calcium 8.9 (8.4-10.2) mg/dL Total Bilirubin 0.9 (0.2-1.3) mg/dL AST 28 (17-59) IU/L ALT 27 (<50) IU/L Alkaline Phosphatase 123 (38-126) U/L Total Creatine Kinase (55-170) U/L CK-MB (CK-2) (<2.37) ng/mL CK-MB (CK-2) Rel Index (1.5-5.0) % Troponin I (0.01-0.034) ng/mL Total Protein 8.3 H (6.3-8.2) g/dL Albumin 4.5 (3.5-5.0) g/dL Globulin 3.8 (1.7-4.1) g/dL Albumin/Globulin Ratio 1.2 (1.0-2.8) Lipase 28 (23-300) U/L Procalcitonin 0.05 (<0.5) ng/mL Urine Color Urine Appearance Urine pH (4.5-8.0) Ur Specific [place] (1.000-1.035) Urine Protein (Negative) Urine Glucose (UA) (Negative) g/dL Urine Ketones (NEGATIVE) Urine Occult Blood (Negative) Urine Nitrate (Negative) Urine Bilirubin (NEGATIVE) Urine Urobilinogen (0.2) E.U./dL Ur Leukocyte Esterase (NEGATIVE) Urine RBC (0-5/HPF) Urine WBC (0-5/HPF) Ur Squamous Epith Cells (0-5/HPF) Urine Bacteria (None) Urine Mucus (Negative) Ur Culture Indicated? SARS-CoV-2 (PCR) (Negative) Influenza A (RT-PCR) (NEGATIVE) Influenza B (RT-PCR) (NEGATIVE) RSV (PCR) (Negative) 11/18/22 11/18/22 Range/Units 00:51 00:51 WBC (4.5-11.0) X10^3/uL RBC (4.5-5.9) X10^6/uL Hgb (13.5-17.5) g/dL Hct (41-53) % MCV (80-100) fL MCH (26-34) PG MCHC (30-36) % RDW (11.6-14.8) % Plt Count (150-400) X10^3/uL Neut % (Auto) (50-75) % Lymph % (Auto) (25-40) % [place] % (Auto) (3-14) % Eos % (Auto) (2-4) % Baso % (Auto) (0-2) % Neut # (Auto) (9906-2882) /uL Lymph # (Auto) (8479-3455) /uL [place] # (Auto) (0-900) /uL Eos # (Auto) (0-450) /uL Baso # (Auto) (0-100) /uL PT (10.1-12.7) SECONDS INR (0.9-1.3) APTT (26-36) SECONDS D-Dimer 509 H (<500) ng/ml Sodium (137-145) mmol/L Potassium (3.4-5.1) mmol/L Chloride (98-107) mmol/L Carbon Dioxide (22-32) mmol/L BUN (9-20) mg/dL Creatinine (0.66-1.25) mg/dL Estimated GFR (>60) mL/min BUN/Creatinine Ratio (6-22) Glucose (70-100) mg/dL Lactate (0.7-2.1) mmol/L Calcium (8.4-10.2) mg/dL Total Bilirubin (0.2-1.3) mg/dL AST (17-59) IU/L ALT (<50) IU/L Alkaline Phosphatase (38-126) U/L Total Creatine Kinase 338 H (55-170) U/L CK-MB (CK-2) 0.68 (<2.37) ng/mL CK-MB (CK-2) Rel Index 0.2 L (1.5-5.0) % Troponin I < 0.012 (0.01-0.034) ng/mL Total Protein (6.3-8.2) g/dL Albumin (3.5-5.0) g/dL Globulin (1.7-4.1) g/dL Albumin/Globulin Ratio (1.0-2.8) Lipase (23-300) U/L Procalcitonin (<0.5) ng/mL Urine Color Urine Appearance Urine pH (4.5-8.0) Ur Specific [place] (1.000-1.035) Urine Protein (Negative) Urine Glucose (UA) (Negative) g/dL Urine Ketones (NEGATIVE) Urine Occult Blood (Negative) Urine Nitrate (Negative) Urine Bilirubin (NEGATIVE) Urine Urobilinogen (0.2) E.U./dL Ur Leukocyte Esterase (NEGATIVE) Urine RBC (0-5/HPF) Urine WBC (0-5/HPF) Ur Squamous Epith Cells (0-5/HPF) Urine Bacteria (None) Urine Mucus (Negative) Ur Culture Indicated? SARS-CoV-2 (PCR) (Negative) Influenza A (RT-PCR) (NEGATIVE) Influenza B (RT-PCR) (NEGATIVE) RSV (PCR) (Negative) MDM Narrative Medical decision making narrative: 52[] year old patient presents with urinary complaints, back pain, fever and shaking chills Multiple etiologies for patient's symptoms considered including, but not limited to: [Urosepsis, flu, COVID, pneumonia, pulmonary embolism versus other] Prior Charts reviewed in our EMR Primary Historian: patient Labs reviewed and interpreted by myself: Leukocytosis with relative left shift, no evidence of anemia, D-dimer is slightly elevated but not over the age corrected cutoff, electrolytes and renal function within normal, lactate 1.9 Imaging reviewed:, chest x-ray without infiltrate Patient with urinary complaints has evidence of UTI urine and systemic complaints as well as back pain suggest pyelonephritis is likely the source of patient's infectious process. After a few L of fluid he is still tachycardic. He is high-risk given history of diabetes and will require hospitalization for further treatment and stabilization of his condition Discharge Plan Departure Patient Disposition: Admitted As Inpatient Clinical Impression: Acute pyelonephritis, Sepsis, Cough
[2022-11-18] MEDS: ACETAMINOPHEN IV 1,000 MG/100 ML VIAL 400 MG IV (02:27)
[2022-11-18 02:33] LABS: D Dimer 509 ng/ml (<500)
[2022-11-18 02:34] LABS: Creatine Kinase 338 U/L (55-170)
[2022-11-18 02:47] LABS: Troponin I < 0.012 ng/mL (0.01-0.034)
[2022-11-18 02:49] LABS: CKMB % Relative Index 0.2 % (1.5-5.0); Creatine Kinase MB 0.68 ng/mL (<2.37)
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
[2022-11-18] MEDS: SODIUM CHLORIDE 0.9% 1,000 ML 150 ML IV ×2 (06:53→16:23)
[2022-11-18] MEDS: OXYCODONE IR 5 MG TABLET PO ×3 (07:12→20:58)
[2022-11-18] MEDS: INSULIN LISPRO 100 UNIT/ML 3ML VIAL SUBCUT ×3 (09:07→20:59)
[2022-11-18] MEDS: INSULIN LISPRO 100 UNIT/ML 3ML VIAL 25 UNIT SUBCUT (09:07)
--- NOTE | 2022-11-18 09:07 | CM.DANOTE ---
DCP: Case received, EMR reviewed and met with patient. Introduced self and role. Was able to obtain information to complete assessment. DCP assessment completed with information currently available. Patient is a 52 year old male who admitted yesterday morning to the care of the hospitalist team. PCP: Rachael Strauss Payer: Healthcare Management/[facility]. Patient came to the hospital via private vehicle secondary to having chills and body aches, urinary complaints of dysuria, frequency, urgency. Notes indicate he was fatigued and very worn out, nauseated. Patient was diagnosed with pyelonephritis, sepsis. He is currently on IV ABO. Met with patient in his room. He is alert and oriented, was laying in bed on his side having some breakfast. Confirmed that he resides in [place] with spouse, Daisha. He is independent at his baseline, and is employed at [employer]. P: DCP to continue to follow. Plan is for patient to go home when deemed medically stable. Karley Zendejas RN/Shaker Washer Discharge Planning/Care Management Discharge Assessment Start: 11/18/22 09:02 Freq: Status: Active Protocol: Document 11/18/22 09:03 (Rec: 11/18/22 09:06 [id number]) Discharge Planning Assessment Assigned Appliance Adjuster Karley Zendejas RN/Shaker Washer Advance Directives? Yes Advance Directives on File No History Provided By Patient,Medical Record Prior Living Arrangements House Household Members spouse,children Type of transporation used prior to Drives own vehicle admit Independent with ADL's Yes Is patient alert and oriented? Yes Caregiver for Another No Barriers to Discharge No Discharge Plan Home Transportation Arrangement Spouse Referrals Initiated None needed Whiteboard Updated in Patient Room with Yes name and ext. # of Appliance Adjuster Review Status In Process Next Review Type Continued Stay Review
[2022-11-18] MEDS: ROPINIROLE 1 MG TABLET PO ×3 (09:13→20:58)
[2022-11-18] MEDS: CARBIDOPA-LEVODOPA 25/100 TABLET 2 EACH PO ×3 (09:13→20:57)
[2022-11-18] MEDS: DULOXETINE 30 MG CAPSULE 60 MG PO (09:13)
[2022-11-18] MEDS: ENOXAPARIN 40 MG/0.4 ML SYRINGE SUBCUT ×2 (09:15→21:00)
[2022-11-18] MEDS: ACETAMINOPHEN 325 MG TABLET 650 MG PO (16:27)
[2022-11-18] MEDS: cefTRIAXone 1,000 MG in SODIUM CHLORIDE 0.9% 100 ML 200 MG IV (20:57)
[2022-11-18] MEDS: ATORVASTATIN 20 MG TABLET 10 MG PO (20:58)
[2022-11-18] MEDS: INSULIN GLARGINE 100 UNIT/ML 3ML PEN 80 UNIT SUBCUT (21:01)
--- NOTE | 2022-11-18 21:15 | PC.NURSE ---
posterior left lower leg; allevyn dressing applied
[2022-11-19 00:05] VITALS: BP 115/82; PULSE 82; RESP 18; TEMP 37; O2SAT 97
[2022-11-19] MEDS: SODIUM CHLORIDE 0.9% FLUSH 10 ML IV (01:46)
[2022-11-19] MEDS: CARBIDOPA-LEVODOPA 25/100 TABLET 2 EACH PO ×2 (02:55→08:34)
[2022-11-19 03:04] VITALS: BP 109/58; PULSE 79; RESP 18; TEMP 36.4; O2SAT 96
[2022-11-19 05:51] LABS: Add Manual Diff / Slide Review NO; Basophils Absolute Auto 0 /uL (0-100); Basophils Percent Auto 0.4 % (0-2); Eosinophils Absolute Auto 100 /uL (0-450); Eosinophils Percent Auto 0.7 % (2-4); Hematocrit 34.4 % (41-53); Hemoglobin 11.8 g/dL (13.5-17.5); Lymphocytes Absolute Auto 1200 /uL (1100-4500); Lymphocytes Percent Auto 12.8 % (25-40); Mean Corpuscular HGB Conc 34.4 % (30-36); Mean Corpuscular Volume 81.3 fL (80-100); Monocytes Absolute Auto 600 /uL (0-900); Monocytes Percent Auto 6.3 % (3-14); Neutrophils Absolute Auto 7600 /uL (1500-7000); Neutrophils Percent Auto 79.8 % (50-75); Platelet Count 218 X10^3/uL (150-400); Red Blood Cell Count 4.23 X10^6/uL (4.5-5.9); Red Cell Distribution Width 15.1 % (11.6-14.8); White Blood Cell Count 9.5 X10^3/uL (4.5-11.0)
[2022-11-19 06:21] LABS: BUN Creatinine Ratio 27.3 (6-22); Blood Urea Nitrogen 12 mg/dL (9-20); Calcium 7.8 mg/dL (8.4-10.2); Carbon Dioxide 27 mmol/L (22-32); Chloride 102 mmol/L (98-107); Estimated Glomerular Filt Rate > 60 mL/min (>60); Glucose 236 mg/dL (70-100); HEMOLYSIS < 15 (0-50); Sodium 135 mmol/L (137-145)
[2022-11-19 07:43] VITALS: BP 109/61; PULSE 68; RESP 20; TEMP 36.1; O2SAT 97
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
[2022-11-19] MEDS: ROPINIROLE 1 MG TABLET PO (08:26)
[2022-11-19] MEDS: DULOXETINE 30 MG CAPSULE 60 MG PO (08:27)
[2022-11-19] MEDS: INSULIN LISPRO 100 UNIT/ML 3ML VIAL 25 UNIT SUBCUT (08:29)
[2022-11-19] MEDS: INSULIN LISPRO 100 UNIT/ML 3ML VIAL SUBCUT (08:29)
[2022-11-19] MEDS: ACETAMINOPHEN 325 MG TABLET 650 MG PO (08:35)
[2022-11-19] MEDS: ENOXAPARIN 40 MG/0.4 ML SYRINGE SUBCUT (08:35)
[2022-11-19 09:00] VITALS: O2SAT 97
--- NOTE | 2022-11-19 10:29 | PC.NURSE ---
Pt is A&Ox3, VSS, afebrile this a.m. He is able to move around his room independently. Noted tremors to L hand, baseline from parkinson's. He reports slight headache this a.m. which he reports was improved and gone after prn tylenol. He is evaluated by the hospitalist and cleared medically for discharge home. He verbalizes understanding of medication and plan of care as well as to return to the ED with fever/report to health care provider if symptoms worsening. He is escorted via w/ch by RN with son to private vehicle for picker packer from spouse with all of his belongings at approximately 0930 this a.m.
== END 2022-11-19 09:25 | disposition home or self-care (01) | DRG 690 ==
LOC: ED 02:45 → AC 04:20
PROVIDERS: Admitting Provider Internal Medicine; Emergency Provider Emergency Medicine; PCP Family Medicine; Referring Provider Emergency Medicine; Visit Provider Internal Medicine
DX: N10 Acute pyelonephritis (principal); Z68.42 Body mass index [BMI] 45.0-49.9, adult; E66.01 Morbid (severe) obesity due to excess calories; E11.9 Type 2 diabetes mellitus without complications; I10 Essential (primary) hypertension; E78.5 Hyperlipidemia, unspecified; G20 Parkinson's disease; T24.132D Burn of first degree of left lower leg, subsequent encounter; X08.8XXD Exposure to other specified smoke, fire and flames, subsequent encounter; Z79.84 Long term (current) use of oral hypoglycemic drugs; Z87.891 Personal history of nicotine dependence; Z79.4 Long term (current) use of insulin
CPT/HCPCS: 0241U; 36415; 71045; 80048; 80053; 81001; 82550; 82553; 82962; 83605; 83690; 84145; 84484; 85025; 85379; 85610; 85730; 87040; 87077; 87086; 87186; 93005; 93010; 96365; 96375; 99284; J0131; J0696; J1650; J1815

== ENCOUNTER 2022-12-02 16:39 | Emergency (ER) | payer OTHER, SELFPAY ==
[2022-11-18 05:30] VITALS: BMI 46.0
[2022-12-02] VITALS (19 sets, daily range): BP systolic 95–135; BP diastolic 69–107; PULSE 92–117; RESP 16–22; TEMP 36.7; O2SAT 94–98; BMI 44.1
--- NOTE | 2022-12-02 16:47 | DI.RAD.S_ITS ---
PROCEDURE: XR CHEST 1V INDICATIONS: suspected sepsis TECHNIQUE: One view of the chest was acquired. COMPARISON: [facility], CR, XR CHEST 1V, 11/18/2022, 0:54. [facility], CR, XR CHEST 2V, 02/21/2022, 15:53. FINDINGS: Surgical changes and devices: None. Lungs and pleura: Lungs appear clear. No pleural effusions or pneumothorax. Mediastinum: Mediastinal contours appear unchanged. Heart size is within normal limits. Bones and chest wall: No suspicious bony lesions. Overlying soft tissues appear unremarkable. IMPRESSION: No acute cardiopulmonary abnormality identified. Dictated by: Israel Mercedes M.D. on 12/02/2022 at 17:46 Approved by: Israel Mercedes M.D. on 12/02/2022 at 17:47
[2022-12-02] MEDS: SODIUM CHLORIDE 0.9% 1,000 ML 1000 ML IV (17:41)
[2022-12-02 17:49] LABS: Add Manual Diff / Slide Review NO; Basophils Absolute Auto 100 /uL (0-100); Basophils Percent Auto 0.5 % (0-2); Eosinophils Absolute Auto 100 /uL (0-450); Hematocrit 42.4 % (41-53); Hemoglobin 14.5 g/dL (13.5-17.5); Lymphocytes Absolute Auto 1400 /uL (1100-4500); Mean Corpuscular HGB Conc 34.1 % (30-36); Mean Corpuscular Hemoglobin 27.7 PG (26-34); Mean Corpuscular Volume 81.1 fL (80-100); Monocytes Absolute Auto 800 /uL (0-900); Monocytes Percent Auto 7.9 % (3-14); Neutrophils Absolute Auto 8300 /uL (1500-7000); Neutrophils Percent Auto 77.6 % (50-75); Platelet Count 309 X10^3/uL (150-400); Red Blood Cell Count 5.23 X10^6/uL (4.5-5.9); Red Cell Distribution Width 15.1 % (11.6-14.8); White Blood Cell Count 10.6 X10^3/uL (4.5-11.0)
[2022-12-02 17:50] LABS: Bacteria Urine None Seen; Culture Indicated Urine Specimen Cultured; RBC Urine 1-5/HPF (0-5/HPF); Squamous Epithelial Cell Urine 1-5 /HPF (0-5/HPF); WBC Urine 10-30/HPF (0-5/HPF)
[2022-12-02 17:57] LABS: PTT Partial Thromboplastin Tim 33 SECONDS (26-36)
[2022-12-02 18:02] LABS: Alanine Aminotransferase 13 IU/L (<50); Albumin 4.4 g/dL (3.5-5.0); Albumin Globulin Ratio 1.1 (1.0-2.8); Alkaline Phosphatase 136 U/L (38-126); Aspartate Aminotransferase 25 IU/L (17-59); Bilirubin Total 0.8 mg/dL (0.2-1.3); Blood Urea Nitrogen 15 mg/dL (9-20); Calcium 9.1 mg/dL (8.4-10.2); Carbon Dioxide 22 mmol/L (22-32); Chloride 103 mmol/L (98-107); Estimated Glomerular Filt Rate > 60 mL/min (>60); Globulin 4.1 g/dL (1.7-4.1); Glucose 159 mg/dL (70-100); HEMOLYSIS < 15 (0-50); Lipase 47 U/L (23-300); Potassium 3.4 mmol/L (3.4-5.1); Sodium 137 mmol/L (137-145); Total Protein 8.5 g/dL (6.3-8.2)
[2022-12-02 18:04] LABS: Lactate (Lactic Acid) 1.4 mmol/L (0.7-2.1)
[2022-12-02 18:20] LABS: COVID19 -Nasal RAPID Negative (Negative)
[2022-12-02 18:23] LABS: Procalcitonin 0.04 ng/mL (<0.5)
--- NOTE | 2022-12-02 18:26 | ED_ITS ---
HPI - Skin/Abscess/Foreign Bdy General Chief complaint: Skin/Abscess/Foreign Body Stated complaint: sent by MD for bump on groin area Time Seen by Provider: 12/02/22 18:25 Source: patient Mode of arrival: Ambulatory Limitations: no limitations History of Present Illness HPI narrative: 52-year-old male daily smoker with history of diabetes, hyperlipidemia, presents with family in the chief complaint of about 1 week of a painful lump in his right groin that started draining earlier today. He denies systemic complaints such as dizziness, weakness or lightheadedness. He is had no fever, chills nor nausea or vomiting. He had been seen and evaluated by his doctor and diagnosed with an abscess and has been taking Bactrim, he is now taken 2 doses. His pain is worse when he moves and improves with rest. It started draining earlier today as noted above and produced foul-smelling purulent material. Related Data Home Medications Medication Instructions Recorded Confirmed simvastatin 10 mg tablet 10 mg PO DAILY ##0 03/19/17 11/18/22 loratadine 10 mg tablet 10 mg PO DAILY ##0 09/02/17 11/18/22 omeprazole 20 mg capsule,delayed 40 mg PO DAILY 09/11/18 11/18/22 release lisinopril 10 mg tablet 10 mg PO DAILY 08/10/20 11/18/22 meclizine 12.5 mg tablet 25 mg PO DAILY 08/10/20 11/18/22 metformin 500 mg tablet 2,000 mg PO DAILY 08/10/20 11/18/22 ropinirole 0.5 mg tablet 1 mg PO TID 08/10/20 11/18/22 carbidopa-levodopa 50 - 200 mg PO 4XD 11/18/22 11/18/22 duloxetine 60 mg PO DAILY 11/18/22 11/18/22 Previous Rx's Medication Instructions Recorded insulin aspart U-100 100 unit/mL 25 unit (0.25 mL) SQ BID #0 mL 08/12/20 (3 mL) subcutaneous pen (Novolog FlexPen U-100 Insulin aspart) insulin degludec 100 unit/mL (3 80 unit (0.8 mL) SUBCUT DAILY #0 mL 08/12/20 mL) subcutaneous pen (Tresiba FlexTouch U-100 insulin) ondansetron 4 mg disintegrating 4 mg PO TID-QID PRN nausea and 12/03/22 tablet vomiting #10 tabs oxycodone 5 mg tablet 5 mg PO Q4-6H PRN pain #10 tabs 12/03/22 oxycodone 5 mg tablet 5 mg PO Q4-6H PRN pain #14 tabs 12/03/22 Allergies Allergy/AdvReac Type Severity Reaction Status Date / Time celecoxib [CELECOXIB] AdvReac Mild MADE MY Verified 12/02/22 16:47 HEART HURT Review of Systems Review of Systems Narrative: GENERAL: Denies chills, fatigue, malaise, fever, sweats. HEENT: Denies sinus pain, ear pain, sore throat, difficulty swallowing, dizziness. RESPIRATORY: Denies dyspnea, cough, wheezing, hemoptysis, sputum. CARDIOVASCULAR: Denies chest pain, palpitations, orthopnea, edema, GASTROINTESTINAL: Denies nausea, vomiting, abdominal pain, diarrhea, constipation, melena. : Denies dysuria, frequency, incontinence, hematuria, urinary retention. MUSCULOSKELETAL: denies weakness, joint pain, or bony pain SKIN: see HPI NEUROLOGIC: Denies weakness, headache, numbness, change in speech, confusion, seizures, incoordination. PSYCHIATRIC: No concerning psychosocial issues. 12 point review of systems is negative except for those stated above 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 Osteoarthritis Retinoschisis Seasonal allergies Sleep apnea Surgical History History of hip surgery Hx of arthroscopy of left knee (03/19/17) Status post cholecystectomy Social History household members: spouse and children Smoking Status: Current every day smoker alcohol intake: current eating out: 4 or more times/week Type(s) of exercise: none Smoking Status: Current every day smoker alcohol intake frequency: 0-2 drinks per day Substance Use Type: does not use Exam Narrative Exam Narrative: GENERAL: [52] year old patient appears stated age. Well-developed patient, in mild distress. HEAD: Atraumatic. Normocephalic. EYES: Pupils equal round and reactive. Extraocular motions intact. No scleral icterus. No injection or drainage. ENT: Nose without bleeding, purulent drainage. Throat without erythema, tonsillar hypertrophy or exudate. Airway patent. NECK: Trachea midline. Non tender CARDIOVASCULAR: Regular rate and rhythm without murmurs, gallops, or rubs. RESPIRATORY: Clear to auscultation. Breath sounds equal bilaterally. No wheezes, rales, or rhonchi. GASTROINTESTINAL: Abdomen soft, non-tender, nondistended. EXTREMITIES: No edema or joint tenderness. BACK: Nontender without deformity or crepitance. No flank tenderness. NEURO: AOx3. SKIN: Right groin with 4 x 3 cm area of tenderness, warmth and erythema, largely indurated with central fluctuance and spontaneous drainage of purulent material superior to scrotum and lateral to pedis. Abdomen is soft. Initial Vital Signs Initial Vital Signs: Vital Signs Temperature 98.1 F 12/02/22 16:41 Pulse Rate 117 H 12/02/22 16:41 Respiratory Rate 20 12/02/22 16:41 Blood Pressure 122/107 H 12/02/22 16:41 Pulse Oximetry 98 12/02/22 16:41 Oxygen Delivery Method Room Air 12/02/22 16:41 Procedures Abscess I/D I&D #1: Site: abdomen Side (if applicable): right Local Anesthetic: lidocaine 1% Amount of anesthesia used (mL): 4 Technique: incised with #11 blade Amount of fluid expressed (mL): 12 Irrigation: Yes Packing used?: none Course Orders Ordered: Discontinued Medications Sodium Chloride (Normal Saline 0.9%) 1,000 mls @ 1,000 mls/hr IV BOLUS ONE Stop: 12/02/22 17:46 Last Infusion: 12/02/22 19:33 Dose: 0 mls/hr Documented By: Admin: 12/02/22 17:41 Dose: 1,000 mls/hr Documented By: MARIANO Lidocaine/Epinephrine (Lidocaine 2% W/Epi Inj) 20 ml INJ INTRA-OP ONE Stop: 12/03/22 01:42 Last Admin: 12/03/22 01:43 Dose: 10 ml Documented By: JODEE Ondansetron HCl (Ondansetron 4 Mg Odt) 4 mg SL NOW PRN PRN Reason: Nausea And Vomiting Ondansetron HCl (Ondansetron 4 Mg/2 Ml Inj) 4 mg IV NOW PRN PRN Reason: Nausea And Vomiting Oxycodone/Acetaminophen (Oxycodone/Apap 5/325 Prepack) 1 bottle MISC SEEINSTR ONE Stop: 12/02/22 23:57 Last Admin: 12/03/22 00:12 Dose: 1 bottle Documented By: AP Vital Signs Vital signs: Vital Signs - 8 hr 12/02/22 22:51 12/02/22 22:00 12/02/22 22:00 Pulse Rate 95 H 95 H Respiratory Rate 20 Blood Pressure 95/69 114/80 Pulse Oximetry 96 96 Oxygen Delivery Method Room Air 12/02/22 22:30 12/02/22 22:31 12/02/22 22:31 Pulse Rate 99 H 101 H Respiratory Rate 21 Blood Pressure 95/69 Pulse Oximetry 96 95 Oxygen Delivery Method 12/02/22 23:00 12/02/22 23:00 12/02/22 23:30 Pulse Rate 93 H Respiratory Rate 17 Blood Pressure 126/77 119/70 Pulse Oximetry 94 Oxygen Delivery Method 12/02/22 23:30 12/03/22 00:00 12/03/22 00:00 Pulse Rate 98 H 97 H Respiratory Rate 19 21 Blood Pressure 133/77 Pulse Oximetry 95 95 Oxygen Delivery Method 12/03/22 00:21 12/03/22 00:21 12/03/22 01:45 Pulse Rate 99 H Respiratory Rate Blood Pressure 134/84 135/83 Pulse Oximetry 97 Oxygen Delivery Method 12/03/22 01:45 12/03/22 01:52 Pulse Rate 92 H 93 H Respiratory Rate Blood Pressure 135/83 Pulse Oximetry 99 99 Oxygen Delivery Method Room Air MDM - Skin/Abscess/Foreign Bdy Lab Data 12/02/22 17:20 12/02/22 17:20 Labs: Lab Results 12/02/22 12/02/22 12/02/22 Range/Units 17:12 17:20 17:20 WBC 10.6 (4.5-11.0) X10^3/uL RBC 5.23 (4.5-5.9) X10^6/uL Hgb 14.5 (13.5-17.5) g/dL Hct 42.4 (41-53) % MCV 81.1 (80-100) fL MCH 27.7 (26-34) PG MCHC 34.1 (30-36) % RDW 15.1 H (11.6-14.8) % Plt Count 309 (150-400) X10^3/uL Neut % (Auto) 77.6 H (50-75) % Lymph % (Auto) 13.0 L (25-40) % [place] % (Auto) 7.9 (3-14) % Eos % (Auto) 1.0 L (2-4) % Baso % (Auto) 0.5 (0-2) % Neut # (Auto) 8300 H (4979-2498) /uL Lymph # (Auto) 1400 (3927-8413) /uL [place] # (Auto) 800 (0-900) /uL Eos # (Auto) 100 (0-450) /uL Baso # (Auto) 100 (0-100) /uL PT 12.0 (10.1-12.7) SECONDS INR 1.0 (0.9-1.3) APTT 33 (26-36) SECONDS Sodium (137-145) mmol/L Potassium (3.4-5.1) mmol/L Chloride (98-107) mmol/L Carbon Dioxide (22-32) mmol/L BUN (9-20) mg/dL Creatinine (0.66-1.25) mg/dL Estimated GFR (>60) mL/min BUN/Creatinine Ratio (6-22) Glucose (70-100) mg/dL Lactate (0.7-2.1) mmol/L Calcium (8.4-10.2) mg/dL Total Bilirubin (0.2-1.3) mg/dL AST (17-59) IU/L ALT (<50) IU/L Alkaline Phosphatase (38-126) U/L Total Protein (6.3-8.2) g/dL Albumin (3.5-5.0) g/dL Globulin (1.7-4.1) g/dL Albumin/Globulin Ratio (1.0-2.8) Lipase (23-300) U/L Procalcitonin (<0.5) ng/mL Urine RBC 1-5/hpf (0-5/HPF) Urine WBC 10-30/hpf H (0-5/HPF) Ur Squamous Epith Cells 1-5 /hpf (0-5/HPF) Urine Bacteria None seen (None) Ur Culture Indicated? Specimen cultured SARS-CoV-2 (PCR) (Negative) 12/02/22 12/02/22 12/02/22 Range/Units 17:20 17:20 17:44 WBC (4.5-11.0) X10^3/uL RBC (4.5-5.9) X10^6/uL Hgb (13.5-17.5) g/dL Hct (41-53) % MCV (80-100) fL MCH (26-34) PG MCHC (30-36) % RDW (11.6-14.8) % Plt Count (150-400) X10^3/uL Neut % (Auto) (50-75) % Lymph % (Auto) (25-40) % [place] % (Auto) (3-14) % Eos % (Auto) (2-4) % Baso % (Auto) (0-2) % Neut # (Auto) (8629-2684) /uL Lymph # (Auto) (4952-3431) /uL [place] # (Auto) (0-900) /uL Eos # (Auto) (0-450) /uL Baso # (Auto) (0-100) /uL PT (10.1-12.7) SECONDS INR (0.9-1.3) APTT (26-36) SECONDS Sodium 137 (137-145) mmol/L Potassium 3.4 (3.4-5.1) mmol/L Chloride 103 (98-107) mmol/L Carbon Dioxide 22 (22-32) mmol/L BUN 15 (9-20) mg/dL Creatinine 0.60 L (0.66-1.25) mg/dL Estimated GFR > 60 (>60) mL/min BUN/Creatinine Ratio 25.0 H (6-22) Glucose 159 H (70-100) mg/dL Lactate 1.4 (0.7-2.1) mmol/L Calcium 9.1 (8.4-10.2) mg/dL Total Bilirubin 0.8 (0.2-1.3) mg/dL AST 25 (17-59) IU/L ALT 13 (<50) IU/L Alkaline Phosphatase 136 H (38-126) U/L Total Protein 8.5 H (6.3-8.2) g/dL Albumin 4.4 (3.5-5.0) g/dL Globulin 4.1 (1.7-4.1) g/dL Albumin/Globulin Ratio 1.1 (1.0-2.8) Lipase 47 (23-300) U/L Procalcitonin 0.04 (<0.5) ng/mL Urine RBC (0-5/HPF) Urine WBC (0-5/HPF) Ur Squamous Epith Cells (0-5/HPF) Urine Bacteria (None) Ur Culture Indicated? SARS-CoV-2 (PCR) Negative (Negative) Urine Dip Bedside Urine Glucose 500 mg/dl Bedside Urine Bilirubin - Negative Bedside Urine Ketone - Negative Urine Specific [place] 1.025 Bedside Urine Occult Blood ++ Bedside Urine pH 6.0 Bedside Urine Protein + 30 Bedside Urine Urobilinogen - Negative Bedside Urine Nitrite - Negative Bedside Urine Leukocytes + 70 Esterase MDM Narrative Medical decision making narrative: [52] year old patient presents with abscess in right groin Multiple etiologies for patient's symptoms considered including, but not limited to: [Abscess, cellulitis versus other] Prior Charts reviewed in our EMR Primary Historian: patient Labs reviewed and interpreted by myself: No significant abnormal findings, wound cultured Imaging reviewed: No acute process Patient's symptoms improved over duration of stay with above-stated therapies. Abscess was already spontaneously draining, incision and drainage performed to open it up a bit more and moderate amount of purulent material removed, patient feeling much better in the aftermath. Abdomen is soft and no scrotal involvement. No systemic complaints and reassuring labs. No indication for hospitalization. Patient already has prescription for antibiotics and planned follow-up Findings and discharge diagnosis discussed with patient/family followed by verbalization of understanding Return precautions discussed with patient/family whom verbalize understanding of diagnosis and plan Discharge Plan Departure Patient Disposition: Home Clinical Impression: Abscess of groin, right Instructions: DI for Skin Abscess Activity Restrictions/Additional Instructions: *You have been diagnosed with [right groin abscess] *What to do: *Please continue to take your regular medications as directed. [ x] New medication prescriptions sent to your pharmacy: [ [facility]] [ ] New medication written as a paper prescription [ ] No new medications given *Please follow up with your primary care provider in 2-3 days, call for an appointment. Let them know you were seen in the Emergency Department and that we ask that you be seen in follow up. We will electronically transmit a record of today's note if your PCP is in our system *Return to Emergency Department if you should have any new, worsening or concerning symptoms, such as [fever greater than 101 F, shaking chills, worsening pain, persistent vomiting or other bothersome symptoms] Prescriptions: New oxycodone 5 mg tablet 5 mg PO Q4-6H PRN (Reason: pain) Qty: 10 0RF ondansetron 4 mg tablet,disintegrating 4 mg PO TID-QID PRN (Reason: nausea and vomiting) Qty: 10 0RF oxycodone 5 mg tablet 5 mg PO Q4-6H PRN (Reason: pain) Qty: 14 0RF No Action simvastatin 10 MG tablet 10 mg PO DAILY Qty: 0 Patient Comments: takes in the afternoon when home from work loratadine 10 MG tablet 10 mg PO DAILY Qty: 0 Patient Comments: takes in the afternoon when home from work omeprazole 20 mg Capsule,Delayed Release(Dr/Ec) 40 mg PO DAILY Patient Comments: takes in the afternoon when home from work lisinopril 10 mg Tablet 10 mg PO DAILY metformin 500 mg Tablet 2,000 mg PO DAILY ropinirole 0.5 mg Tablet 1 mg PO TID meclizine 12.5 mg Tablet 25 mg PO DAILY insulin aspart U-100 [Novolog FlexPen U-100 Insulin] 100 UNIT/1 ML insulin pen 25 unit SQ BID Qty: 0 0RF Patient Comments: takes in the afternoon when home from work insulin degludec [Tresiba FlexTouch U-100] 100 unit/mL (3 mL) Insulin Pen 80 unit subcut DAILY Qty: 0 0RF Patient Comments: takes in the afternoon when home from work carbidopa-levodopa 25 MG/100 MG tablet 50 - 200 mg PO 4XD Rx Instructions: 0300, 0900, 1500, 2100 duloxetine 60 mg PO DAILY Referrals: Rachael Charles MD [Primary Care Provider] - Stand Alone Forms: Patient Portal/API, Work Release Note
[2022-12-03] VITALS: BP 133/77; PULSE 97; RESP 21; O2SAT 95
[2022-12-03] MEDS: OXYCODONE/APAP 5/325 PREPACK 1 BOTTLE MISC (00:12)
[2022-12-03 00:21] VITALS: BP 134/84; PULSE 99; O2SAT 97
[2022-12-03] MEDS: LIDOCAINE 2% W/EPI INJ 20 ML INJ (01:43)
[2022-12-03 01:45] VITALS: BP 135/83; PULSE 92; O2SAT 99
[2022-12-03 01:52] VITALS: BP 135/83; PULSE 93; O2SAT 99
== END 2022-12-03 01:53 | disposition home or self-care (01) ==
PROVIDERS: Emergency Medicine; Emergency Provider Emergency Medicine; PCP Family Medicine
DX: L02.214 Cutaneous abscess of groin (principal); Z20.822 Contact with and (suspected) exposure to COVID-19
CPT/HCPCS: 36415; 71045; 80053; 81003; 81015; 83605; 83690; 84145; 85025; 85610; 85730; 87040; 87070; 87075; 87077; 87086; 87147; 87205; 87635; 93005; 99284; C9803

== ENCOUNTER 2022-12-04 02:10 | Inpatient (IN) | payer OTHER, SELFPAY ==
[2022-11-18 05:30] VITALS: BMI 46.0
[2022-12-04] VITALS (11 sets, daily range): BP systolic 101–146; BP diastolic 57–89; PULSE 77–113; RESP 16–24; TEMP 35.8–36.6; O2SAT 95–99; BMI 44.4
--- NOTE | 2022-12-04 02:19 | ED.GENADULT ---
HPI - General Adult General Chief complaint: Arrhythmia/Palpitations Stated complaint: Heart beating fast Time Seen by Provider: 12/04/22 02:10 History of Present Illness HPI narrative: 52-year-old gentleman with a history of diabetes, Parkinson's disease, depression, hypertension, gastric reflux, hyperlipidemia presents today complaining of weakness, unsteadiness and his heart beating too fast. He was seen yesterday for a draining suprapubic abscess that had been seen by his primary care doctor and already treated with Bactrim. The area was I indeed, there is no evidence of sepsis with procalcitonin low at 0.4 and an unremarkable white count. Culture from the I and D still has culture pending. Patient was discharged home to continue Septra. Of note proximally a month ago he burned the lateral aspect of his left calf on a hot rock and currently has it dressed. There is a 5 x 7 cm superficial ulceration that appears to be healing nicely with granulation tissue and no evidence of erythema. There is a slight amount of increased swelling over the left calf compared to the right calf. Patient states that he is increasingly unsteady, weak and generally does not feel well. He is not describing fevers. He does note that the wound over the pubis has continued to drain but not nearly as prolific. Related Data Home Medications Medication Instructions Recorded Confirmed simvastatin 10 mg tablet 10 mg PO DAILY ##0 03/19/17 11/18/22 loratadine 10 mg tablet 10 mg PO DAILY ##0 09/02/17 11/18/22 omeprazole 20 mg capsule,delayed 40 mg PO DAILY 09/11/18 11/18/22 release lisinopril 10 mg tablet 10 mg PO DAILY 08/10/20 11/18/22 meclizine 12.5 mg tablet 25 mg PO DAILY 08/10/20 11/18/22 metformin 500 mg tablet 2,000 mg PO DAILY 08/10/20 11/18/22 ropinirole 0.5 mg tablet 1 mg PO TID 08/10/20 11/18/22 carbidopa-levodopa 50 - 200 mg PO 4XD 11/18/22 11/18/22 duloxetine 60 mg PO DAILY 11/18/22 11/18/22 Previous Rx's Medication Instructions Recorded insulin aspart U-100 100 unit/mL 25 unit (0.25 mL) SQ BID #0 mL 08/12/20 (3 mL) subcutaneous pen (Novolog FlexPen U-100 Insulin aspart) insulin degludec 100 unit/mL (3 80 unit (0.8 mL) SUBCUT DAILY #0 mL 08/12/20 mL) subcutaneous pen (Tresiba FlexTouch U-100 insulin) ondansetron 4 mg disintegrating 4 mg PO TID-QID PRN nausea and 12/03/22 tablet vomiting #10 tabs oxycodone 5 mg tablet 5 mg PO Q4-6H PRN pain #10 tabs 12/03/22 oxycodone 5 mg tablet 5 mg PO Q4-6H PRN pain #14 tabs 12/03/22 Allergies Allergy/AdvReac Type Severity Reaction Status Date / Time celecoxib [CELECOXIB] AdvReac Mild MADE MY Verified 12/02/22 16:47 HEART HURT Review of Systems Review of Systems Narrative: Pertinent positive and negative findings as per HPI Patient History Medical History (Updated 12/04/22 @ 04:05 by Briana Escalante MD) Abnormal liver function tests Alcohol dependence Arthritis Cellulitis (09/07/18) Diverticulosis Ectodermal dysplasia Former smoker Generalized anxiety disorder Hemochromatosis HTN (hypertension) Hyperlipidemia Insulin dependent diabetes mellitus with complications Multifocal PVCs Osteoarthritis Retinoschisis Seasonal allergies Sleep apnea Surgical History History of hip surgery Hx of arthroscopy of left knee (03/19/17) Status post cholecystectomy Social History household members: spouse and children Smoking Status: Current every day smoker alcohol intake: current eating out: 4 or more times/week Type(s) of exercise: none Smoking Status: Current every day smoker alcohol intake frequency: 0-2 drinks per day Substance Use Type: does not use Exam Initial Vital Signs Initial Vital Signs: Vital Signs Pulse Rate 109 H 12/04/22 02:20 Pulse Oximetry 97 12/04/22 02:20 General: Slightly unsteady with increased tremor to the left upper extremity, pale mildly diaphoretic, slightly confused HEENT: Dry mucous membranes, normal sclera with reactive pupils, Neck: No JVD, supple Respiratory: Lungs are clear to auscultation, no wheezing no rales no rhonchi. Full and symmetrical air movement Cardiac: Tachycardic with regular rhythm no murmurs are appreciated Abdomen: Soft, nontender, good bowel tones, no flank pain Suprapubic area: Area of induration over the right aspect of the suprapubic area with no obvious cellulitis or abscess. The I&D site from last night is noted with minor amount of purulent discharge draining from this. Skin: Pale, diaphoretic, poor peripheral perfusion. Left lateral burn to the calf does not appear to be infected. Neurologic: Slightly altered mental status, somewhat slowed and confused but is able to cooperate with exam. Significant pill roll tremor at rest, left upper extremity Extremities: Poor overall perfusion with no lower extremity edema Psych: Cooperative, slightly slowed, poor insight Course Orders Ordered: ED Orders 12/04/22 02:19 CT abdomen pelvis w con Stat 12/04/22 02:20 XR chest 1V Stat EKG-12 Lead Stat 12/04/22 02:24 Complete Blood Count AUTO DIFF Stat Comprehensive Metabolic Panel Stat D Dimer Stat ETOH [Ethanol (ETOH)] Stat Lactate (Lactic Acid) Stat Procalcitonin Stat 12/04/22 02:37 Urinalysis and Microscopic Stat 12/04/22 02:50 Blood Culture Stat 12/04/22 03:08 CT angio chest PE protocol Stat 12/04/22 03:30 COVID19 -Nasal RAPID Stat Sodium Chloride (Normal Saline 0.9%) 1,000 mls @ 150 mls/hr IV CONT SUSAN Last Admin: 12/04/22 03:05 Dose: 150 mls/hr Discontinued Medications Piperacillin Sod/Tazobactam (Sod 4.5 gm/ Sodium Chloride) 100 mls @ 200 mls/hr IV NOW ONE Stop: 12/04/22 02:22 Last Infusion: 12/04/22 03:05 Dose: Infused Sodium Chloride (Normal Saline 0.9%) 1,000 mls @ 1,000 mls/hr IV BOLUS ONE Stop: 12/04/22 04:07 Last Titration: 12/04/22 04:16 Dose: Infused Lactated Ringer's (Lactated Ringers) 1,000 mls @ 1,000 mls/hr IV BOLUS ONE Stop: 12/04/22 04:25 Last Admin: 12/04/22 04:15 Dose: 1,000 mls/hr Potassium Chloride (Potassium Chloride 20 Meq Tab) 40 meq PO NOW ONE Stop: 12/04/22 03:09 Last Admin: 12/04/22 03:20 Dose: 40 meq Vital Signs Vital signs: Vital Signs - 8 hr 12/04/22 02:30 12/04/22 02:20 12/04/22 02:24 Temperature 97.6 F Pulse Rate 112 H 109 H Respiratory Rate 18 Blood Pressure Pulse Oximetry 97 98 Oxygen Delivery Method Room Air 12/04/22 02:33 Temperature Pulse Rate Respiratory Rate Blood Pressure 146/89 H Pulse Oximetry Oxygen Delivery Method Medical Decision Making Lab Data 12/04/22 02:24 12/04/22 02:24 Labs: Lab Results 12/04/22 12/04/22 12/04/22 Range/Units 02:24 02:24 02:24 WBC 10.7 (4.5-11.0) X10^3/uL RBC 5.05 (4.5-5.9) X10^6/uL Hgb 13.9 (13.5-17.5) g/dL Hct 41.2 (41-53) % MCV 81.7 (80-100) fL MCH 27.6 (26-34) PG MCHC 33.8 (30-36) % RDW 15.6 H (11.6-14.8) % Plt Count 337 (150-400) X10^3/uL Neut % (Auto) 78.1 H (50-75) % Lymph % (Auto) 11.7 L (25-40) % [place] % (Auto) 7.5 (3-14) % Eos % (Auto) 1.5 L (2-4) % Baso % (Auto) 1.2 (0-2) % Neut # (Auto) 8300 H (6403-2136) /uL Lymph # (Auto) 1300 (6362-6081) /uL [place] # (Auto) 800 (0-900) /uL Eos # (Auto) 200 (0-450) /uL Baso # (Auto) 100 (0-100) /uL D-Dimer (<500) ng/ml Sodium 136 L (137-145) mmol/L Potassium 2.8 L (3.4-5.1) mmol/L Chloride 99 (98-107) mmol/L Carbon Dioxide 23 (22-32) mmol/L BUN 17 (9-20) mg/dL Creatinine 0.72 (0.66-1.25) mg/dL Estimated GFR > 60 (>60) mL/min BUN/Creatinine Ratio 23.6 H (6-22) Glucose 123 H (70-100) mg/dL Lactate 2.3 H (0.7-2.1) mmol/L Calcium 8.9 (8.4-10.2) mg/dL Total Bilirubin 0.7 (0.2-1.3) mg/dL AST 35 (17-59) IU/L ALT 11 (<50) IU/L Alkaline Phosphatase 154 H (38-126) U/L Total Protein 8.5 H (6.3-8.2) g/dL Albumin 4.4 (3.5-5.0) g/dL Globulin 4.1 (1.7-4.1) g/dL Albumin/Globulin Ratio 1.1 (1.0-2.8) Procalcitonin 0.04 (<0.5) ng/mL Urine Color Urine Appearance Urine pH (4.5-8.0) Ur Specific [place] (1.000-1.035) Urine Protein (Negative) Urine Glucose (UA) (Negative) g/dL Urine Ketones (NEGATIVE) Urine Occult Blood (Negative) Urine Nitrate (Negative) Urine Bilirubin (NEGATIVE) Urine Urobilinogen (0.2) E.U./dL Ur Leukocyte Esterase (NEGATIVE) Urine RBC (0-5/HPF) Urine WBC (0-5/HPF) Ur Squamous Epith Cells (0-5/HPF) Urine Bacteria (None) Urine Mucus (Negative) Ethyl Alcohol ( - 10) mg/dL SARS-CoV-2 (PCR) (Negative) 12/04/22 12/04/22 12/04/22 Range/Units 02:24 02:24 02:37 WBC (4.5-11.0) X10^3/uL RBC (4.5-5.9) X10^6/uL Hgb (13.5-17.5) g/dL Hct (41-53) % MCV (80-100) fL MCH (26-34) PG MCHC (30-36) % RDW (11.6-14.8) % Plt Count (150-400) X10^3/uL Neut % (Auto) (50-75) % Lymph % (Auto) (25-40) % [place] % (Auto) (3-14) % Eos % (Auto) (2-4) % Baso % (Auto) (0-2) % Neut # (Auto) (6831-2662) /uL Lymph # (Auto) (8414-5486) /uL [place] # (Auto) (0-900) /uL Eos # (Auto) (0-450) /uL Baso # (Auto) (0-100) /uL D-Dimer 600 H (<500) ng/ml Sodium (137-145) mmol/L Potassium (3.4-5.1) mmol/L Chloride (98-107) mmol/L Carbon Dioxide (22-32) mmol/L BUN (9-20) mg/dL Creatinine (0.66-1.25) mg/dL Estimated GFR (>60) mL/min BUN/Creatinine Ratio (6-22) Glucose (70-100) mg/dL Lactate (0.7-2.1) mmol/L Calcium (8.4-10.2) mg/dL Total Bilirubin (0.2-1.3) mg/dL AST (17-59) IU/L ALT (<50) IU/L Alkaline Phosphatase (38-126) U/L Total Protein (6.3-8.2) g/dL Albumin (3.5-5.0) g/dL Globulin (1.7-4.1) g/dL Albumin/Globulin Ratio (1.0-2.8) Procalcitonin (<0.5) ng/mL Urine Color Dark yellow Urine Appearance Slightly cloudy Urine pH 5.5 (4.5-8.0) Ur Specific [place] >=1.030 H (1.000-1.035) Urine Protein 1+ H (Negative) Urine Glucose (UA) Trace H (Negative) g/dL Urine Ketones Negative (NEGATIVE) Urine Occult Blood 2+ H (Negative) Urine Nitrate Negative (Negative) Urine Bilirubin Negative (NEGATIVE) Urine Urobilinogen 1.0 (0.2) E.U./dL Ur Leukocyte Esterase Negative (NEGATIVE) Urine RBC 30-100/hpf H (0-5/HPF) Urine WBC 1-5/hpf (0-5/HPF) Ur Squamous Epith Cells 5-10 /hpf H (0-5/HPF) Urine Bacteria None seen (None) Urine Mucus 1+ H (Negative) Ethyl Alcohol < 10 ( - 10) mg/dL SARS-CoV-2 (PCR) (Negative) 12/04/22 Range/Units 03:30 WBC (4.5-11.0) X10^3/uL RBC (4.5-5.9) X10^6/uL Hgb (13.5-17.5) g/dL Hct (41-53) % MCV (80-100) fL MCH (26-34) PG MCHC (30-36) % RDW (11.6-14.8) % Plt Count (150-400) X10^3/uL Neut % (Auto) (50-75) % Lymph % (Auto) (25-40) % [place] % (Auto) (3-14) % Eos % (Auto) (2-4) % Baso % (Auto) (0-2) % Neut # (Auto) (4640-3732) /uL Lymph # (Auto) (9855-9156) /uL [place] # (Auto) (0-900) /uL Eos # (Auto) (0-450) /uL Baso # (Auto) (0-100) /uL D-Dimer (<500) ng/ml Sodium (137-145) mmol/L Potassium (3.4-5.1) mmol/L Chloride (98-107) mmol/L Carbon Dioxide (22-32) mmol/L BUN (9-20) mg/dL Creatinine (0.66-1.25) mg/dL Estimated GFR (>60) mL/min BUN/Creatinine Ratio (6-22) Glucose (70-100) mg/dL Lactate (0.7-2.1) mmol/L Calcium (8.4-10.2) mg/dL Total Bilirubin (0.2-1.3) mg/dL AST (17-59) IU/L ALT (<50) IU/L Alkaline Phosphatase (38-126) U/L Total Protein (6.3-8.2) g/dL Albumin (3.5-5.0) g/dL Globulin (1.7-4.1) g/dL Albumin/Globulin Ratio (1.0-2.8) Procalcitonin (<0.5) ng/mL Urine Color Urine Appearance Urine pH (4.5-8.0) Ur Specific [place] (1.000-1.035) Urine Protein (Negative) Urine Glucose (UA) (Negative) g/dL Urine Ketones (NEGATIVE) Urine Occult Blood (Negative) Urine Nitrate (Negative) Urine Bilirubin (NEGATIVE) Urine Urobilinogen (0.2) E.U./dL Ur Leukocyte Esterase (NEGATIVE) Urine RBC (0-5/HPF) Urine WBC (0-5/HPF) Ur Squamous Epith Cells (0-5/HPF) Urine Bacteria (None) Urine Mucus (Negative) Ethyl Alcohol ( - 10) mg/dL SARS-CoV-2 (PCR) Negative (Negative) MDM Narrative Medical decision making narrative: CC: Rapid heart rate Acute issue, systemic symptoms uncertain prognosis Complicating co-morbidities: Diabetes, hypertension, hyperlipidemia, currently on Septra for abscess and cellulitis, history of alcohol use disorder Data collected from: patient, daughter and spouse Medical records reviewed: Discharge from the hospital on November 19 with pyelonephritis. Hospitalization discharge notes and recent ER visit notes are all reviewed Differential considered: Sepsis, expanding abscess, necrotizing fasciitis, other intra-abdominal process, acute coronary syndrome, hypovolemia Exam documented above, pertinent findings include: Generally appears unwell, confused, poor overall perfusion, tachycardic but able speak in full sentences without any respiratory distress. Induration over the pubis is concerning and he is certainly at risk for necrotizing fasciitis Lab Test results independently reviewed as above. Pertinent findings: CBC does not show significantly elevated white count nor significant anemia Chemistries show normal renal function with a potassium of 2.8. Chronically elevated alkaline phosphatase Lactic acid is 2.3 Urine has red blood cells and squamous epithelial cells and does not appear to show urinary tract infection COVID screen is negative Independently reviewed EKG as above Sinus tachycardia at a rate of 107 Poor baseline Nonspecific lateral ST T wave changes without acute ischemia Imaging studies independently reviewed: CT abdomen scrotal and Raquel penile soft tissue stranding consistent with cellulitis and/or balanitis. There is no conclusive evidence of necrotizing fasciitis but the lack of subcutaneous gas does not entirely rule out this process. A similar appearing process of the suprapubic region can be partially identified and a CT scan performed in August of 2020. Chest x-ray shows no acute cardiopulmonary disease CT chest PE study: No acute abnormality identified specifically no pulmonary embolism. Consultations: 4:10am Hospitalist for hospital admission. Admit accepted Treatments: Fluids, antibiotics (Zosyn) Re-evaluations: 320am elevated lactic acid. Will order 30mg/kg fluids based on IBW due to his morbid obesity with BMI @ 44.4. IBW=90kg. Fluids should be 2700cc over 3 hours. 4:04am feeling better, more alert, bettter peripherial perfusion. Explained need for IV abx and hospital admission. Questions were answered Discussion: 52-year-old gentleman who presents with increased weakness, altered mental status, tachycardia with concerns for sepsis even possibility of Fabrice's gangrene with sepsis source over the pubis. At this point, patient has failed outpatient oral antibiotic treatment for his suprapubic cellulitis. CT scan does not suggest Fabrice's/necrotizing fasciitis but he does appear to have inflammation in the area after it was I indeed approximately 36 hours ago. White count and procalcitonin are not elevated however lactic acid is elevated. He is treated with broad-spectrum antibiotics, Zosyn and ideal body weight 30 per kilos fluid resuscitation is initiated. Alternate sources for tachycardia are reviewed and his D-dimer returns slightly elevated. CT of the chest to rule out pulmonary embolism is ordered. CT scan of the abdomen and pelvis given the concern for deep tissue infection of the perineum and suprapubic area is reviewed above. Additional findings include hypokalemia which is initially treated with oral potassium as he is still able to eat and drink. No additional findings were found with CT of the chest specifically no pulmonary embolism. Additional Information: Severe Sepsis Criteria [x ] bacterial source of infection suspected and documented [ ] 2 SIRS Criteria met [ x ] HR >90 [ x ] RR >20 [ ] fever or hypothermia [ x ] leukocytosis/leukopenia/bandemia [ ] Evidence of at least 1 organ system dysfunction [ ] Lactate > 2 [ ] BP < 90 or MAP <65, >40mm decrease from normal baseline [ ] Creat > 2.0 [ ] T. Bili > 2.0 [ ] platelet count < 100k [x ] altered mental status [ ] mechanical ventilation [ ] provider documentation of severe sepsis Severe Sepsis Determination. the patient has been screened and [ x ] DOES meet criteria for severe sepsis [ ] DOES NOT meet criteria for severe sepsis Goal directed treatment Within 3 hours [ x ] blood cx drawn prior to abx [ x ] broad spectrum abx started [ x] lactic acid level checked [ ] lactic redrawn within 6 hours if >2.0 Septic Shock Criteria [ ] lactic > 4 at any time [ ] SBP ,90 or MAP , 65 [ ] documentation of septic shock Time Septic Shock diagnosed: [ ] Septic Shock Determination. the patient has been screened and [ ] DOES meet criteria for septic shock [ x ] DOES NOT meet criteria for septic shock Discharge Plan Departure Patient Disposition: Admitted As Inpatient Clinical Impression: Cellulitis of suprapubic region, Acute hypokalemia Diabetes Qualifiers: Diabetes mellitus type: type 2 Diabetes mellitus senior living insulin use: with extermination inspector use Altered mental status Qualifiers: Altered mental status type: unspecified Qualified Code(s): R41.82 - Altered mental status, unspecified
--- NOTE | 2022-12-04 02:19 | DI.CT.S_ITS ---
PROCEDURE: CT ABDOMEN PELVIS W CON INDICATIONS: suprapubic infection/abcess. ? nec fasc? TECHNIQUE: After the administration of IV contrast, axial sections were acquired from the lung bases to the pubic symphysis. Coronal and sagittal reformats were performed. For radiation dose reduction, the following was used: automated exposure control, adjustment of mA and/or kV according to patient size. COMPARISON: [facility], MR, MR LUMBAR SPINE WITHOUT CONTRAST, 01/18/2019, 10:53. [facility], CT, ABDOMEN/PELVIS WITH CONTRAST, 03/08/2014, 15:37. [facility], CT, CT CHEST ABD PEL W CON, 08/09/2020, 23:17. FINDINGS: Image quality: Excellent. Lung bases: Unremarkable. Heart: No significant findings. ABDOMEN: Liver: Normal size. Moderate hepatic steatosis. Gallbladder: Surgically absent Biliary ducts: Unremarkable. Pancreas: Unremarkable. Spleen: Unremarkable. Adrenal Glands: Unremarkable. Kidneys and Ureters: Unremarkable. Stomach and Bowel: Stomach, small bowel loops, and colon are unremarkable. Appendix is normal. Peritoneum: No abnormal intraperitoneal fluid. No free air. Ventral Wall: No hernia. Abdominal Nodes: No retroperitoneal or mesenteric adenopathy by size criteria. Vessels: Aorta and inferior vena cava are normal in size. PELVIS: Pelvic Organs: Unremarkable. Bladder: Unremarkable. Pelvic Nodes: No enlarged lymph nodes. Miscellaneous: There is fat stranding and skin thickening in the suprapubic area extending to the base of the penis and scrotum, consistent with cellulitis. No subcutaneous fluid or gas collections. Small fat containing left inguinal hernia. Bones: Degenerative disc and facet disease in lumbar spine. There is severe central canal stenosis at L3-L4. Pars defect at L5 bilaterally. IMPRESSION: 1. Soft tissue stranding in the suprapubic area involving the base of the penis and scrotum, consistent with cellulitis. No subcutaneous fluid or gas collections. 2. Hepatic steatosis. 3. Degenerative disc and facet disease in lumbar spine. There is severe central canal stenosis at L3-L4. 4. Bilateral pars defects at L5. No significant discrepancy with the date night caregiver radiology preliminary report. Dictated by: Rajan Delarosa M.D. on 12/04/2022 at 6:59 Approved by: Rajan Delarosa M.D. on 12/04/2022 at 9:14
--- NOTE | 2022-12-04 02:20 | DI.RAD.S_ITS ---
PROCEDURE: XR CHEST 1V INDICATIONS: rapid heart rate TECHNIQUE: One view of the chest was acquired. COMPARISON: [facility], CR, XR CHEST 1V, 12/02/2022, 17:08. [facility], CR, XR CHEST 1V, 11/18/2022, 0:54. [facility], CR, XR CHEST 2V, 02/21/2022, 15:53. [facility], CR, XR CHEST 1V, 08/09/2020, 21:19. FINDINGS: Surgical changes and devices: None. Lungs and pleura: Lungs are clear. No pleural effusions or pneumothorax. Mediastinum: Mediastinal contours appear normal. Heart size is normal. Bones and chest wall: No suspicious bony lesions. Overlying soft tissues appear unremarkable. IMPRESSION: No acute cardiopulmonary abnormality. There is no significant discrepancy when compared to the overnight preliminary report. Approved by: Jeffrey Chan M.D. on 12/04/2022 at 8:02
[2022-12-04] MEDS: PIPERACILLIN/TAZO 4.5 GM in SODIUM CHLORIDE 0.9% 100 ML IV (02:31)
[2022-12-04 02:35] LABS: Add Manual Diff / Slide Review NO; Basophils Absolute Auto 100 /uL (0-100); Basophils Percent Auto 1.2 % (0-2); Eosinophils Absolute Auto 200 /uL (0-450); Eosinophils Percent Auto 1.5 % (2-4); Hematocrit 41.2 % (41-53); Hemoglobin 13.9 g/dL (13.5-17.5); Lymphocytes Absolute Auto 1300 /uL (1100-4500); Lymphocytes Percent Auto 11.7 % (25-40); Mean Corpuscular HGB Conc 33.8 % (30-36); Mean Corpuscular Hemoglobin 27.6 PG (26-34); Mean Corpuscular Volume 81.7 fL (80-100); Monocytes Absolute Auto 800 /uL (0-900); Monocytes Percent Auto 7.5 % (3-14); Neutrophils Absolute Auto 8300 /uL (1500-7000); Neutrophils Percent Auto 78.1 % (50-75); Platelet Count 337 X10^3/uL (150-400); Red Blood Cell Count 5.05 X10^6/uL (4.5-5.9); Red Cell Distribution Width 15.6 % (11.6-14.8); White Blood Cell Count 10.7 X10^3/uL (4.5-11.0)
[2022-12-04 02:41] LABS: Bilirubin Urine UA NEGATIVE (NEGATIVE); Glucose Urine UA TRACE g/dL (Negative); Ketones Urine UA NEGATIVE (NEGATIVE); Leukocyte Esterase Urine UA NEGATIVE (NEGATIVE); Nitrite Urine UA NEGATIVE (Negative); Occult Blood Urine UA 2+ (Negative); Protein Urine UA 1+ (Negative); Specific Gravity Urine UA >=1.030 (1.000-1.035); pH Urine UA 5.5 (4.5-8.0)
[2022-12-04 02:43] LABS: Lactate (Lactic Acid) 2.3 mmol/L (0.7-2.1)
[2022-12-04 02:43] LABS: Appearance Urine UA Slightly Cloudy; Color Urine UA Dark Yellow
[2022-12-04 02:44] LABS: Ethanol (ETOH) < 10 mg/dL
[2022-12-04 02:45] LABS: Alanine Aminotransferase 11 IU/L (<50); Albumin 4.4 g/dL (3.5-5.0); Albumin Globulin Ratio 1.1 (1.0-2.8); Alkaline Phosphatase 154 U/L (38-126); Aspartate Aminotransferase 35 IU/L (17-59); BUN Creatinine Ratio 23.6 (6-22); Bilirubin Total 0.7 mg/dL (0.2-1.3); Blood Urea Nitrogen 17 mg/dL (9-20); Calcium 8.9 mg/dL (8.4-10.2); Carbon Dioxide 23 mmol/L (22-32); Chloride 99 mmol/L (98-107); Estimated Glomerular Filt Rate > 60 mL/min (>60); Globulin 4.1 g/dL (1.7-4.1); Glucose 123 mg/dL (70-100); HEMOLYSIS < 15 (0-50); Potassium 2.8 mmol/L (3.4-5.1); Sodium 136 mmol/L (137-145); Total Protein 8.5 g/dL (6.3-8.2)
[2022-12-04 02:49] LABS: Mucus Urine 1+ (Negative); RBC Urine 30-100/HPF (0-5/HPF); Squamous Epithelial Cell Urine 5-10 /HPF (0-5/HPF); WBC Urine 1-5/HPF (0-5/HPF)
[2022-12-04 02:50] LABS: Bacteria Urine None Seen
[2022-12-04 02:52] LABS: D Dimer 600 ng/ml (<500)
[2022-12-04 03:01] LABS: Procalcitonin 0.04 ng/mL (<0.5)
[2022-12-04] MEDS: SODIUM CHLORIDE 0.9% 1,000 ML 150 ML IV (03:05)
--- NOTE | 2022-12-04 03:08 | DI.CT.S_ITS ---
PROCEDURE: CT ANGIO CHEST PE PROTOCOL INDICATIONS: tachycardia, elevated d-dimer TECHNIQUE: After the administration of intravenous contrast, 2 mm thick sections acquired from the pulmonary apices to the posterior costophrenic angles. 3-dimensional maximum intensity projection (MIP) coronal and sagittal reformats were then acquired through the thorax. For radiation dose reduction, the following was used: automated exposure control, adjustment of mA and/or kV according to patient size. COMPARISON: [facility], CR, XR CHEST 1V, 08/09/2020, 21:19. [facility], CT, CT CHEST ABD PEL W CON, 08/09/2020, 23:17. [facility], CR, XR CHEST 1V, 12/02/2022, 17:08. [facility], CR, XR CHEST 1V, 12/04/2022, 2:30. FINDINGS: Image quality: Mild respiratory motion artifacts. Pulmonary arteries: Pulmonary arteries are normal in size, and demonstrate no intraluminal filling defects to suggest central pulmonary embolism. Lungs and pleura: Right middle lobe and lingular atelectasis. No focal infiltrate or consolidation No pleural effusions or pneumothorax. Mild mosaic attenuation of lungs bilaterally. Central and peripheral airways are patent. Mediastinum: Heart size is normal, without pericardial effusion. Mild coronary artery calcification. No mediastinal or hilar adenopathy. Thoracic aorta is normal in caliber and enhancement. Esophagus is normal in caliber. Small hiatal hernia. Bones and chest wall: No suspicious bony lesions. Ribs and thoracic spine appear intact throughout. Thyroid gland is normal. No axillary or supraclavicular adenopathy. Abdomen: Mild hepatic steatosis. Visualized upper abdominal solid organs otherwise appear normal in the early arterial phase of enhancement. IMPRESSION: 1. No evidence for pulmonary embolism. 2. Mild mosaic attenuation of lungs bilaterally on top of respiratory motion artifacts. Differential diagnoses are small airway disease, mild pulmonary edema an artifacts. No significant discrepancy with the shift stacker radiology preliminary report. Dictated by: Rajan Delarosa M.D. on 12/04/2022 at 6:59 Approved by: Rajan Delarosa M.D. on 12/04/2022 at 8:52
[2022-12-04] MEDS: POTASSIUM CHLORIDE 20 MEQ TAB 40 MEQ PO (03:20)
[2022-12-04] MEDS: SODIUM CHLORIDE 0.9% 1,000 ML 1000 ML IV (03:23)
--- NOTE | 2022-12-04 03:24 | PC.NURSE ---
DR Escalante ordered the nrmal saline bag at 150 ml per hour to bolus now also.verbal order.
[2022-12-04 03:52] LABS: COVID19 -Nasal RAPID Negative (Negative)
[2022-12-04] MEDS: LACTATED RINGERS 1,000 ML 1000 ML IV ×2 (04:15→08:10)
[2022-12-04 04:30] LABS: Reflexed Lactate in 2 Hours Y
--- NOTE | 2022-12-04 04:44 | PM.HP.1 ---
History of Present Illness History of Present Illness Date Patient Seen: 12/04/22 Time Patient Seen: 04:15 Chief complaint: Heart beating fast Narrative: Mr. Carmichael is a 52M with PMH DM, HTN, HL, morbid obesity who presents to the hospital with tachycardia. He was recently in the ED within the last couple days for groin abscess for which I and D was done. He was discharged on bactrim, culture from the abscess is pending. He comes back in to the hospital feeling generally unwell. He has noted tachycardia, diaphoresis, nausea, vomiting, and diarrhea. He has no chest pain, shortness of breath, dysuria. Per the ED physician he was confused when he presented to the hospital. He has a chronic left leg superficial ulcer that is healing well with no pain or erythema. In the ED workup was done, vitals notable afebrile, for heart rate 110s, blood pressure 140s/80s. Labs reviewed by me and notable for WBC 10.7, hgb 13.9. Na 136, K 2.8, creatinine 0.72. Lactate 2.3. Procal 0.04. UA shows 30-100 rbcs, 1-5 wbcs, negative leuk esterase and negative nitrates. CT abdomen and pelvis shows soft tissue stranding around the penis consistne with cellulitis. No discrete abscess noted. He was ordered for IV fluids and antibiotics and admitted for further treatment. 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 Osteoarthritis Retinoschisis Seasonal allergies Sleep apnea Surgical History History of hip surgery Hx of arthroscopy of left knee (03/19/17) Status post cholecystectomy Social History household members: spouse and children Smoking Status: Current every day smoker alcohol intake: current eating out: 4 or more times/week Type(s) of exercise: none Meds Home Medications and Allergies Home Medications Medication Instructions Recorded Confirmed Type simvastatin 10 mg tablet 10 mg PO DAILY ##0 03/19/17 11/18/22 History loratadine 10 mg tablet 10 mg PO DAILY ##0 09/02/17 11/18/22 History omeprazole 20 mg capsule,delayed 40 mg PO DAILY 09/11/18 11/18/22 History release lisinopril 10 mg tablet 10 mg PO DAILY 08/10/20 11/18/22 History meclizine 12.5 mg tablet 25 mg PO DAILY 08/10/20 11/18/22 History metformin 500 mg tablet 2,000 mg PO DAILY 08/10/20 11/18/22 History ropinirole 0.5 mg tablet 1 mg PO TID 08/10/20 11/18/22 History insulin aspart U-100 100 unit/mL 25 unit (0.25 mL) SQ BID #0 mL 08/12/20 11/18/22 Rx (3 mL) subcutaneous pen (Novolog FlexPen U-100 Insulin aspart) insulin degludec 100 unit/mL (3 80 unit (0.8 mL) SUBCUT DAILY #0 mL 08/12/20 11/18/22 Rx mL) subcutaneous pen (Tresiba FlexTouch U-100 insulin) carbidopa-levodopa 50 - 200 mg PO 4XD 11/18/22 11/18/22 History duloxetine 60 mg PO DAILY 11/18/22 11/18/22 History ondansetron 4 mg disintegrating 4 mg PO TID-QID PRN nausea and 12/03/22 Rx tablet vomiting #10 tabs oxycodone 5 mg tablet 5 mg PO Q4-6H PRN pain #10 tabs 12/03/22 Rx oxycodone 5 mg tablet 5 mg PO Q4-6H PRN pain #14 tabs 12/03/22 Rx Allergies Allergy/AdvReac Type Severity Reaction Status Date / Time celecoxib [CELECOXIB] AdvReac Mild MADE MY Verified 12/02/22 16:47 HEART HURT Review of Systems Review of Systems Narrative: 14 systems reviewed and negative aside from what is noted in HPI Exam Vital Signs (past 8 hours): - 12/04/22 02:30 12/04/22 02:20 12/04/22 02:24 Temperature 97.6 F Pulse Rate 112 H 109 H Respiratory Rate 18 Blood Pressure Pulse Oximetry 97 98 Oxygen Delivery Method Room Air 12/04/22 02:33 12/04/22 04:05 Temperature Pulse Rate 101 H Respiratory Rate Blood Pressure 146/89 H 146/89 H Pulse Oximetry 97 Oxygen Delivery Method Oxygen Delivery Method Room Air Narrative Exam Narrative: GEN: no acute distress HEENT: dry mucous membranes, PERRL NECK: trachea midline, no JVD PULM: clear bilaterally, no wheezes, rhonchi, rales CV: tachycardic, no murmurs ABD: soft, nontender, nondistended, no organomegaly EXT: warm and well perfused, left calf with circular shallow wound with no pain and minimal erythema : right groin fluctuance with no tenderness, no pus noted NEURO: awake, alert, oriented, with no focal deficits Objective Labs 12/04/22 02:24 12/04/22 02:24 Labs: Laboratory Results - last 24 hr 12/04/22 12/04/22 12/04/22 02:24 02:24 02:24 WBC 10.7 RBC 5.05 Hgb 13.9 Hct 41.2 MCV 81.7 MCH 27.6 MCHC 33.8 RDW 15.6 H Plt Count 337 Neut % (Auto) 78.1 H Lymph % (Auto) 11.7 L [place] % (Auto) 7.5 Eos % (Auto) 1.5 L Baso % (Auto) 1.2 Neut # (Auto) 8300 H Lymph # (Auto) 1300 [place] # (Auto) 800 Eos # (Auto) 200 Baso # (Auto) 100 D-Dimer Sodium 136 L Potassium 2.8 L Chloride 99 Carbon Dioxide 23 BUN 17 Creatinine 0.72 Estimated GFR > 60 BUN/Creatinine Ratio 23.6 H Glucose 123 H Lactate 2.3 H Calcium 8.9 Total Bilirubin 0.7 AST 35 ALT 11 Alkaline Phosphatase 154 H Total Protein 8.5 H Albumin 4.4 Globulin 4.1 Albumin/Globulin Ratio 1.1 Procalcitonin 0.04 Urine Color Urine Appearance Urine pH Ur Specific [place] Urine Protein Urine Glucose (UA) Urine Ketones Urine Occult Blood Urine Nitrate Urine Bilirubin Urine Urobilinogen Ur Leukocyte Esterase Urine RBC Urine WBC Ur Squamous Epith Cells Urine Bacteria Urine Mucus Ethyl Alcohol SARS-CoV-2 (PCR) 12/04/22 12/04/22 12/04/22 02:24 02:24 02:37 WBC RBC Hgb Hct MCV MCH MCHC RDW Plt Count Neut % (Auto) Lymph % (Auto) [place] % (Auto) Eos % (Auto) Baso % (Auto) Neut # (Auto) Lymph # (Auto) [place] # (Auto) Eos # (Auto) Baso # (Auto) D-Dimer 600 H Sodium Potassium Chloride Carbon Dioxide BUN Creatinine Estimated GFR BUN/Creatinine Ratio Glucose Lactate Calcium Total Bilirubin AST ALT Alkaline Phosphatase Total Protein Albumin Globulin Albumin/Globulin Ratio Procalcitonin Urine Color Dark yellow Urine Appearance Slightly cloudy Urine pH 5.5 Ur Specific [place] >=1.030 H Urine Protein 1+ H Urine Glucose (UA) Trace H Urine Ketones Negative Urine Occult Blood 2+ H Urine Nitrate Negative Urine Bilirubin Negative Urine Urobilinogen 1.0 Ur Leukocyte Esterase Negative Urine RBC 30-100/hpf H Urine WBC 1-5/hpf Ur Squamous Epith Cells 5-10 /hpf H Urine Bacteria None seen Urine Mucus 1+ H Ethyl Alcohol < 10 SARS-CoV-2 (PCR) 12/04/22 03:30 WBC RBC Hgb Hct MCV MCH MCHC RDW Plt Count Neut % (Auto) Lymph % (Auto) [place] % (Auto) Eos % (Auto) Baso % (Auto) Neut # (Auto) Lymph # (Auto) [place] # (Auto) Eos # (Auto) Baso # (Auto) D-Dimer Sodium Potassium Chloride Carbon Dioxide BUN Creatinine Estimated GFR BUN/Creatinine Ratio Glucose Lactate Calcium Total Bilirubin AST ALT Alkaline Phosphatase Total Protein Albumin Globulin Albumin/Globulin Ratio Procalcitonin Urine Color Urine Appearance Urine pH Ur Specific [place] Urine Protein Urine Glucose (UA) Urine Ketones Urine Occult Blood Urine Nitrate Urine Bilirubin Urine Urobilinogen Ur Leukocyte Esterase Urine RBC Urine WBC Ur Squamous Epith Cells Urine Bacteria Urine Mucus Ethyl Alcohol SARS-CoV-2 (PCR) Negative Assessment & Plan Assessment & Plan narrative: 1. Acute cellulitis with sepsis and acute toxic metabolic encephalopathy -patient presented confusion and tachycardia after recent I and D of groin abscess -UA noted to be negative for infection, chest xray with no pneumonia -CT shows cellulitis surrounding penis, with no discrete abscess noted -patient septic with tachycardia, tachypnea, elevated lactate and end organ damage with encephalopathy -after antibiotics heart rate improved and encephalopathy resolved -follow up abscess culture and blood cultures -continue antibiotics, for now will order vancomycin and cefepime -check mrsa swab -low threshold to consult surgery if concern of developing abscess or conult urology if concern for angela's gangrene 2. Type 2 Diabetes on insulin -continue insulin home dose -continue sliding scale -check glucose achs 3. Morbid obesity -BMI 44.4, higher risk of complication from delayed wound healing 4. Hypertension -hold anti-hypertensives for now 5. Hyperlipidemia -continue statin 6. Parkinsons disease -continue home meds sinemet, and ropinirole 7. Superficial burn wound on leg -provide wound care I have discussed the plan and obtained history from the patient and family at bedside. I have discussed plan of care with the ED physician and bedside nurse. I have reviewed labs, and CT and xray imaging. CODE: Full Proxy: Daisha Jany, spouse
--- NOTE | 2022-12-04 05:00 | PC.NURSE ---
Received patient via wheelchair in no distress. Pt. able to stand and walk to bathroom with steady gait and no assistance. IV fluids infusing and changed to NS.
[2022-12-04] MEDS: CEFEPIME 1 GM in SODIUM CHLORIDE 0.9% 100 ML IV ×2 (05:12→16:28)
[2022-12-04 05:43] LABS: Lactate 2HR (Lactic Acid Rflx) 2.7 mmol/L (0.7-2.1)
[2022-12-04] MEDS: VANCOMYCIN 1,250 MG/250 ML PIGGYBACK 250 MG IV ×2 (05:59→06:56)
[2022-12-04 06:16] LABS: MRSA (Nasal) PCR DETECTED (Not Detect)
[2022-12-04 07:53] LABS: Add Manual Diff / Slide Review NO; Basophils Absolute Auto 0 /uL (0-100); Basophils Percent Auto 0.6 % (0-2); Eosinophils Absolute Auto 0 /uL (0-450); Eosinophils Percent Auto 0.4 % (2-4); Hematocrit 34.9 % (41-53); Hemoglobin 11.8 g/dL (13.5-17.5); Lymphocytes Absolute Auto 900 /uL (1100-4500); Mean Corpuscular HGB Conc 33.9 % (30-36); Mean Corpuscular Hemoglobin 27.7 PG (26-34); Mean Corpuscular Volume 81.6 fL (80-100); Monocytes Absolute Auto 400 /uL (0-900); Monocytes Percent Auto 6.4 % (3-14); Neutrophils Absolute Auto 5400 /uL (1500-7000); Neutrophils Percent Auto 79.6 % (50-75); Platelet Count 276 X10^3/uL (150-400); Red Blood Cell Count 4.27 X10^6/uL (4.5-5.9); Red Cell Distribution Width 15.3 % (11.6-14.8); White Blood Cell Count 6.8 X10^3/uL (4.5-11.0)
[2022-12-04] MEDS: ENOXAPARIN 40 MG/0.4 ML SYRINGE SUBCUT ×2 (08:10→21:21)
[2022-12-04] MEDS: DULOXETINE 30 MG CAPSULE 60 MG PO (08:10)
[2022-12-04] MEDS: CARBIDOPA-LEVODOPA 25/100 TABLET 1 EACH PO ×3 (08:10→21:21)
[2022-12-04] MEDS: ROPINIROLE 0.25 MG TABLET 1 MG PO ×3 (08:11→21:21)
[2022-12-04 08:33] LABS: Lactate (Lactic Acid) 1.5 mmol/L (0.7-2.1)
[2022-12-04 08:35] LABS: BUN Creatinine Ratio 23.7 (6-22); Blood Urea Nitrogen 14 mg/dL (9-20); Calcium 7.8 mg/dL (8.4-10.2); Carbon Dioxide 24 mmol/L (22-32); Chloride 105 mmol/L (98-107); Estimated Glomerular Filt Rate > 60 mL/min (>60); Glucose 106 mg/dL (70-100); HEMOLYSIS < 15 (0-50); Potassium 4.2 mmol/L (3.4-5.1); Sodium 135 mmol/L (137-145)
[2022-12-04] MEDS: VANCOMYCIN 2,000 MG/400 ML PIGGYBACK 200 MG IV (19:11)
[2022-12-05] VITALS: BP 129/81; PULSE 86; RESP 23; TEMP 36.1; O2SAT 95
[2022-12-05 04:00] VITALS: BP 122/78; PULSE 75; RESP 19; TEMP 36.7; O2SAT 95; O2SAT 98
[2022-12-05] MEDS: CEFEPIME 1 GM in SODIUM CHLORIDE 0.9% 100 ML IV (04:36)
[2022-12-05] MEDS: VANCOMYCIN 2,000 MG/400 ML PIGGYBACK 200 MG IV (05:56)
--- NOTE | 2022-12-05 07:03 | PC.NURSE ---
Microcalled with positive MRSA results in both Urine culture and wound. Patient admitted to ICU. [employer] Farzana kaur.
[2022-12-05 08:00] VITALS: BP 122/78; PULSE 83; RESP 20; TEMP 36.9; O2SAT 97; O2SAT 98
[2022-12-05] MEDS: CARBIDOPA-LEVODOPA 25/100 TABLET 1 EACH PO (08:42)
[2022-12-05] MEDS: ROPINIROLE 0.25 MG TABLET 1 MG PO (08:42)
[2022-12-05] MEDS: DULOXETINE 30 MG CAPSULE 60 MG PO (08:42)
[2022-12-05] MEDS: ENOXAPARIN 40 MG/0.4 ML SYRINGE SUBCUT (08:43)
[2022-12-05] MEDS: INSULIN LISPRO 100 UNIT/ML 3ML VIAL SUBCUT (08:43)
[2022-12-05] MEDS: ACETAMINOPHEN 325 MG TABLET 650 MG PO (08:51)
[2022-12-05 09:43] LABS: Add Manual Diff / Slide Review NO; Basophils Absolute Auto 0 /uL (0-100); Basophils Percent Auto 0.7 % (0-2); Eosinophils Absolute Auto 100 /uL (0-450); Eosinophils Percent Auto 1.3 % (2-4); Hematocrit 38.5 % (41-53); Hemoglobin 12.9 g/dL (13.5-17.5); Lymphocytes Absolute Auto 1100 /uL (1100-4500); Lymphocytes Percent Auto 25.1 % (25-40); Mean Corpuscular HGB Conc 33.5 % (30-36); Mean Corpuscular Hemoglobin 27.4 PG (26-34); Mean Corpuscular Volume 81.9 fL (80-100); Monocytes Absolute Auto 300 /uL (0-900); Monocytes Percent Auto 7.7 % (3-14); Neutrophils Absolute Auto 2900 /uL (1500-7000); Neutrophils Percent Auto 65.2 % (50-75); Platelet Count 289 X10^3/uL (150-400); Red Cell Distribution Width 15.8 % (11.6-14.8); White Blood Cell Count 4.4 X10^3/uL (4.5-11.0)
[2022-12-05 09:56] LABS: BUN Creatinine Ratio 18.4 (6-22); Blood Urea Nitrogen 9 mg/dL (9-20); Calcium 8.4 mg/dL (8.4-10.2); Carbon Dioxide 25 mmol/L (22-32); Chloride 104 mmol/L (98-107); Estimated Glomerular Filt Rate > 60 mL/min (>60); Glucose 140 mg/dL (70-100); HEMOLYSIS < 15 (0-50); Potassium 4.3 mmol/L (3.4-5.1); Sodium 136 mmol/L (137-145)
--- NOTE | 2022-12-05 10:18 | P.DS_ITS ---
History of Present Illness History of Present Illness Date Patient Seen: 12/05/22 Time Patient Seen: 10:18 Chief complaint: Heart beating fast Narrative: Per admitting provider, Mr. Carmichael is a 52M with PMH DM, HTN, HL, morbid obesity who presents to the hospital with tachycardia. He was recently in the ED within the last couple days for groin abscess for which I and D was done. He was discharged on bactrim, culture from the abscess is pending. He comes back in to the hospital feeling generally unwell. He has noted tachycardia, diaphoresis, nausea, vomiting, and diarrhea. He has no chest pain, shortness of breath, dysuria. Per the ED physician he was confused when he presented to the hospital. He has a chronic left leg superficial ulcer that is healing well with no pain or erythema. In the ED workup was done, vitals notable afebrile, for heart rate 110s, blood pressure 140s/80s. Labs reviewed by me and notable for WBC 10.7, hgb 13.9. Na 136, K 2.8, creatinine 0.72. Lactate 2.3. Procal 0.04. UA shows 30-100 rbcs, 1-5 wbcs, negative leuk esterase and negative nitrates. CT abdomen and pelvis shows soft tissue stranding around the penis consistne with cellulitis. No discrete abscess noted. He was ordered for IV fluids and antibiotics and admitted for further treatment. Discharge Providers Provider Date of admission: 12/04/22 04:31 Discharge Date: 12/05/22 Primary care physician: Rachael Charles MD Discharge provider: Hammad Shaikh DO Summary Hospital Course Discharge Diagnosis: 1. Acute cellulitis with sepsis and acute toxic metabolic encephalopathy, likely due to MRSA 2. Type 2 Diabetes on insulin 3. Morbid obesity 4. Hypertension 5. Hyperlipidemia 6. Parkinsons disease 7. Superficial burn wound on leg Hospital Course: This is a 52 year old male who was admitted with sepsis secondary due to an acute cellulitis of his groin. He had failed bactrim at home after recent I&D, he was empirically started on cefepime and vancomycin given MRSA history and d iabetes history. He improved more quickly than expected, and the following day he had no continued redness and pain had resolved. He was discharged home on doxycyline based on recent I&D cultures showing MRSA. No other changes were recommended to his home medications at discharge. His home antihypertensives were held due to sepsis on admission but can be resumed at discharge. Time Spent with Patient Time spent: Greater than 30 minutes Exam Vital Signs (past 8 hours): - 12/05/22 04:00 12/05/22 04:00 12/05/22 08:00 Temperature 98.0 F 98.4 F Pulse Rate 75 83 Respiratory Rate 19 20 Blood Pressure 122/78 122/78 Pulse Oximetry 95 98 97 Oxygen Delivery Method Room Air Oxygen Flow Rate 0 12/05/22 07:00 12/05/22 08:00 Temperature Pulse Rate Respiratory Rate Blood Pressure Pulse Oximetry 98 Oxygen Delivery Method Room Air Room Air Oxygen Flow Rate Oxygen Delivery Method Room Air Oxygen Flow Rate 0 Narrative Exam Narrative: GEN: no acute distress HEENT: dry mucous membranes, PERRL NECK: trachea midline, no JVD PULM: clear bilaterally, no wheezes, rhonchi, rales CV: RRR, no murmurs ABD: soft, nontender, nondistended, no organomegaly EXT: warm and well perfused, left calf with circular shallow wound with no pain and minimal erythema : right groin enarlged lymph node, improved from yesterday, no surrounding erythema or induration. NEURO: awake, alert, oriented, with no focal deficits Objective Labs 12/05/22 08:15 12/05/22 08:15 Labs: Laboratory Results - last 24 hr 12/05/22 12/05/22 08:15 08:15 WBC 4.4 L RBC 4.70 Hgb 12.9 L Hct 38.5 L MCV 81.9 MCH 27.4 MCHC 33.5 RDW 15.8 H Plt Count 289 Neut % (Auto) 65.2 Lymph % (Auto) 25.1 [place] % (Auto) 7.7 Eos % (Auto) 1.3 L Baso % (Auto) 0.7 Neut # (Auto) 2900 Lymph # (Auto) 1100 [place] # (Auto) 300 Eos # (Auto) 100 Baso # (Auto) 0 Sodium 136 L Potassium 4.3 Chloride 104 Carbon Dioxide 25 BUN 9 Creatinine 0.49 L Estimated GFR > 60 BUN/Creatinine Ratio 18.4 Glucose 140 H Calcium 8.4 PFSH Medical History Abnormal liver function tests Alcohol dependence Arthritis Cellulitis (09/07/18) Diverticulosis Ectodermal dysplasia Former smoker Generalized anxiety disorder Hemochromatosis HTN (hypertension) Hyperlipidemia Insulin dependent diabetes mellitus with complications Multifocal PVCs Osteoarthritis Retinoschisis Seasonal allergies Sleep apnea Surgical History History of hip surgery Hx of arthroscopy of left knee (03/19/17) Status post cholecystectomy Social History household members: spouse and children Smoking Status: Current every day smoker alcohol intake: current eating out: 4 or more times/week Type(s) of exercise: none Discharge Plan Discharge Plan Patient Disposition: Home Provider Discharge Comment: You were admitted for swelling and redness, improved with antibiotics. Continue antibiotic therapy at home for another week. Stop taking previous antibiotic. Discharge orders & Medications Prescriptions: New doxycycline hyclate 100 mg tablet 100 mg PO BID 7 Days Qty: 14 0RF Continued simvastatin 10 MG tablet 10 mg PO DAILY Qty: 0 Patient Comments: takes in the afternoon when home from work loratadine 10 MG tablet 10 mg PO DAILY Qty: 0 Patient Comments: takes in the afternoon when home from work omeprazole 20 mg Capsule,Delayed Release(Dr/Ec) 40 mg PO DAILY Patient Comments: takes in the afternoon when home from work lisinopril 10 mg Tablet 10 mg PO DAILY metformin 500 mg Tablet 2,000 mg PO DAILY meclizine 12.5 mg Tablet 25 mg PO DAILY insulin degludec [Tresiba FlexTouch U-100] 100 unit/mL (3 mL) Insulin Pen 80 unit subcut DAILY Qty: 0 0RF Patient Comments: takes in the afternoon when home from work carbidopa-levodopa 25 MG/100 MG tablet 50 - 200 mg PO 4XD Rx Instructions: 0300, 0900, 1500, 2100 duloxetine 60 mg PO DAILY insulin aspart U-100 [Novolog FlexPen U-100 Insulin] 100 UNIT/1 ML insulin pen 30 unit SQ BID Patient Comments: takes in the afternoon when home from work Follow up/Referrals: Rachael Charles MD [Primary Care Provider] - Diet/Activity/Treatments Diet: Diet as Tolerated and Carb-consistent/Diabetic Activity: As tolerated Visit Report/Discharge Packet Stand Alone Forms: Patient Portal/API, Stroke Signs & Symptoms Discharge Data Primary Care Provider: Rachael Charles Discharges patient from system. Discharge Date/Time: 12/05/22 11:00
--- NOTE | 2022-12-05 15:57 | CM.DANOTE ---
Discharge Planning/Care Management CM Discharge Assessment Start: 12/05/22 15:48 Freq: Status: Discharge Protocol: Document 12/05/22 15:48 ADRIANNE (Rec: 12/05/22 15:57 ADRIANNE [id number]) Discharge Planning Assessment Assigned .Net Architect COREY Rogers DPOA/Assigned Designee Name Daisha Carmichael, spouse Contact Information [phone] Advance Directives? Yes Advance Directives on File No History Provided By Patient,Medical Record Household Members spouse,children Type of transporation used prior to Drives own vehicle admit Independent with ADL's Yes Is patient alert and oriented? Yes Barriers to Discharge No Comment Patient is a 52 yo male, resident of [facility] w /family. 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[employer] Works for [employer] Patient admitted last night with Acute cellulitis with sepsis and acute toxic metabolic encephalopathy; recent I and D of groin abscess, MRSA+ Chart indicates patient has chronic left leg superficial ulcer that is healing well Symptoms improved today and patient discharged to the care of his family with close outpatient follow up recommended No CM team needs identified, home w/family JW Discharge Plan Home Transportation Arrangement Spouse Referrals Initiated None needed Additional Comment Patient is not home bound that would enable him to have home health, but may benefit with outpatient diabetic teaching
== END 2022-12-05 11:00 | disposition home or self-care (01) | DRG 871 ==
LOC: ED 04:05 → AC 04:32 → ICU 04:40
PROVIDERS: Internal Medicine; Admitting Provider Internal Medicine; Emergency Provider Emergency Medicine; PCP Family Medicine; Referring Provider Emergency Medicine; Visit Provider Internal Medicine
DX: A41.9 Sepsis, unspecified organism (principal); G92.8 Other toxic encephalopathy; L03.314 Cellulitis of groin; Z68.41 Body mass index [BMI] 40.0-44.9, adult; L02.214 Cutaneous abscess of groin; E11.9 Type 2 diabetes mellitus without complications; E66.01 Morbid (severe) obesity due to excess calories; E78.5 Hyperlipidemia, unspecified; I10 Essential (primary) hypertension; G20 Parkinson's disease; B95.62 Methicillin resistant Staphylococcus aureus infection as the cause of diseases classified elsewhere; F17.200 Nicotine dependence, unspecified, uncomplicated; T24.132D Burn of first degree of left lower leg, subsequent encounter; X08.8XXD Exposure to other specified smoke, fire and flames, subsequent encounter; Z79.84 Long term (current) use of oral hypoglycemic drugs; Z79.4 Long term (current) use of insulin; Z20.822 Contact with and (suspected) exposure to COVID-19
CPT/HCPCS: 10060; 36415; 71045; 71275; 74177; 80048; 80053; 80320; 81001; 81003; 81015; 82962; 83605; 83690; 84145; 85025; 85379; 85610; 85730; 87040; 87070; 87077; 87086; 87147; 87186; 87205; 87635; 87797; 93005; 96365; 99284; C9803; J0692; J1650; J1815; J2543; Q9967

== ENCOUNTER → 2023-03-13 15:44 | Outpatient (CLI) | payer OTHER, SELFPAY ==
[2022-12-04 13:39] VITALS: BMI 44.4
--- NOTE | 2023-03-13 15:49 | DI.RAD.S_ITS ---
PROCEDURE: XR ANKLE RT MIN 3V INDICATIONS: Ankle sprain TECHNIQUE: 3 views of the ankle were acquired. COMPARISON: [facility], CR, XR ANKLE RT MIN 3V, 06/15/2019, 16:25. FINDINGS: Bones: No fractures or dislocations. Ankle mortise is normally aligned. No suspicious bony lesions. Periarticular osteophyte formation at the tibiotalar, talonavicular, and navicular cuneiform joints. Calcaneal spurring is present. Soft tissues: No tibiotalar joint effusion. Achilles tendon appears normal. IMPRESSION: Osteoarthritis. No acute fracture. No osseous lesion. If symptoms and/or clinical suspicion for pathology persist, further assessment with repeat, or advanced imaging (e.g., CT, MRI, or bone scan) may be helpful for further assessment. Dictated by: Brian Elaine M.D. on 03/13/2023 at 16:26 Approved by: Brian Elaine M.D. on 03/13/2023 at 16:26
== END ==
PROVIDERS: PCP Family Medicine; Referring Provider Family Medicine; Visit Provider Family Medicine
DX: S93.491A Sprain of other ligament of right ankle, initial encounter (principal); M19.071 Primary osteoarthritis, right ankle and foot; X58.XXXA Exposure to other specified factors, initial encounter
CPT/HCPCS: 73610

== ENCOUNTER → 2023-09-18 12:19 | Outpatient (CLI) | payer OTHER, SELFPAY ==
[2022-12-04 13:39] VITALS: BMI 44.4
[2023-09-18 13:43] LABS: Influenza A - CEPHEID Flu A POSITIVE (NEGATIVE); Influenza B - CEPHEID Flu B NEGATIVE (NEGATIVE); Respiratory Syncytial Virus Negative (Negative)
[2023-09-18 13:46] LABS: COVID-19 CEPHEID 4-PLEX PCR Negative (Negative)
== END ==
PROVIDERS: PCP Family Medicine; Visit Provider Nurse Practitioner Family
DX: R05.1 Acute cough (principal)
CPT/HCPCS: 0241U

== ENCOUNTER → 2023-09-18 12:42 | Outpatient (CLI) | payer OTHER, SELFPAY ==
[2022-12-04 13:39] VITALS: BMI 44.4
--- NOTE | 2023-09-18 12:46 | DI.RAD.S_ITS ---
PROCEDURE: XR CHEST 2V INDICATIONS: PAIN INITIATED BY COUGHING TECHNIQUE: 2 views of the chest were acquired. COMPARISON: [facility], CR, XR CHEST 1V, 12/04/2022, 2:30. [facility], CR, XR CHEST 1V, 12/02/2022, 17:08. FINDINGS: Surgical changes and devices: None. Lungs and pleura: Lungs are clear. No pleural effusions or pneumothorax. Mediastinum: Mediastinal contours are normal. Heart size is normal. Bones and chest wall: No suspicious bony abnormalities. Soft tissues appear unremarkable. IMPRESSION: No acute cardiopulmonary abnormality is seen. Dictated by: Jonnie Pressley M.D. on 09/18/2023 at 13:14 Approved by: Jonnie Pressley M.D. on 09/18/2023 at 13:15
== END ==
PROVIDERS: PCP Family Medicine; Referring Provider Family Medicine; Visit Provider Family Medicine
DX: R52 Pain, unspecified (principal); R05.1 Acute cough
CPT/HCPCS: 0241U; 71046

== ENCOUNTER 2023-09-21 20:22 | Emergency (ER) | payer OTHER, SELFPAY ==
[2022-12-04 13:39] VITALS: BMI 44.4
[2023-09-21] VITALS (10 sets, daily range): BP systolic 118–145; BP diastolic 69–87; PULSE 75–97; RESP 20–28; TEMP 36.7; O2SAT 94–97; BMI 44.1
--- NOTE | 2023-09-21 20:50 | DI.RAD.S_ITS ---
PROCEDURE: XR CHEST 1V INDICATIONS: chest pain TECHNIQUE: One view of the chest was acquired. COMPARISON: [facility], CR, XR CHEST 2V, 09/18/2023, 12:52. [facility], CR, XR CHEST 1V, 12/04/2022, 2:30. FINDINGS: Surgical changes and devices: None. Lungs and pleura: Lungs are clear. No pleural effusions or pneumothorax. Mediastinum: Mediastinal contours appear normal. Heart size is normal. Bones and chest wall: No suspicious bony lesions. Overlying soft tissues appear unremarkable. IMPRESSION: No acute cardiopulmonary abnormality is seen. Dictated by: Rajan Delarosa M.D. on 09/21/2023 at 21:15 Approved by: Rajan Delarosa M.D. on 09/21/2023 at 21:15
--- NOTE | 2023-09-21 20:53 | ED.SOB ---
HPI - SOB/Dyspnea General Chief Complaint: Shortness of Breath/Dyspnea Stated Complaint: Chest Pain all day, SOB, Neck pain Time Seen by Provider: 09/21/23 20:51 Source: patient Mode of arrival: Ambulatory Limitations: no limitations History of Present Illness HPI Narrative: 53-year-old male with history of diabetes, hypertension, dyslipidemia, GERD, Parkinson's disease presents with complaint of recent diagnosis of influenza a on Friday the . Patient states his symptoms initially started on the 14 of September. Patient states he has had sweats, no documented fevers, no congestion but has developed more of a sore throat. States his left ear has been painful. He has had a cough which has been nonproductive. He has had chest pain in the last day or so which he states is intermittent but worse when he lays flat. He is also felt a little bit more short of breath and tight in his chest. Also worse when he lays flat. He has had some nausea but no vomiting. Had some mild diarrhea which has improved. He has had some myalgias throughout his leg back and body all over. Patient states no new swelling in extremities. Patient is on insulin as well as metformin for his diabetes, lisinopril, simvastatin, omeprazole and carbidopa levodopa, he does have an albuterol inhaler that he uses most days in his steroid inhaler that he uses most days. He states has not seemed to make much difference. Has not used any in the last 24 hours. States he is quitting tobacco but does still smoke. Does drink alcohol, no recreational drugs. States his mom had asthma. Primary care is Dr. Charles at the [facility]. Related Data Home Medications Medication Instructions Recorded Confirmed simvastatin 10 mg tablet 10 mg PO DAILY ##0 03/19/17 09/18/23 loratadine 10 mg tablet 10 mg PO DAILY ##0 09/02/17 09/18/23 omeprazole 20 mg capsule,delayed 40 mg PO DAILY 09/11/18 09/18/23 release lisinopril 10 mg tablet 10 mg PO DAILY 08/10/20 09/18/23 meclizine 12.5 mg tablet 25 mg PO DAILY 08/10/20 09/18/23 metformin 500 mg tablet 2,000 mg PO DAILY 08/10/20 09/18/23 carbidopa-levodopa 50 - 200 mg PO 4XD 11/18/22 09/18/23 duloxetine 60 mg PO DAILY 11/18/22 09/18/23 insulin aspart U-100 100 unit/mL 30 unit SQ BID 12/04/22 09/18/23 (3 mL) subcutaneous pen (Novolog FlexPen U-100 Insulin aspart) Previous Rx's Medication Instructions Recorded insulin degludec 100 unit/mL (3 80 unit (0.8 mL) SUBCUT DAILY #0 mL 08/12/20 mL) subcutaneous pen (Tresiba FlexTouch U-100 insulin) benzonatate 100 mg capsule 200 mg (2 x 100 mg) PO BID PRN 09/18/23 cough #20 caps Allergies Allergy/AdvReac Type Severity Reaction Status Date / Time celecoxib [CELECOXIB] AdvReac Mild MADE MY Verified 09/18/23 12:20 HEART HURT Review of Systems Review of Systems ROS Unobtainable: All systems reviewed & are unremarkable except as noted in HPI and below Patient History Medical History (Updated 09/21/23 @ 21:33 by Cheryle Palma DO) Cellulitis (09/07/18) Hemochromatosis Multifocal PVCs Ectodermal dysplasia Generalized anxiety disorder Retinoschisis Diverticulosis Osteoarthritis Abnormal liver function tests Alcohol dependence Arthritis Former smoker Sleep apnea Seasonal allergies HTN (hypertension) Hyperlipidemia Insulin dependent diabetes mellitus with complications Surgical History Hx of arthroscopy of left knee (03/19/17) History of hip surgery Status post cholecystectomy Social History household members: spouse and children Smoking Status: Current every day smoker alcohol intake: current eating out: 4 or more times/week Type(s) of exercise: none Smoking Status: Current every day smoker tobacco type: cigarettes alcohol intake frequency: 0-2 drinks per day Substance Use Type: does not use Exam Narrative Exam Narrative: GEN: Obese, well-appearing male, alert and oriented x 3, patient appears to be in mild distress. HEENT: Atraumatic, pupils are equal round reactive to light, extraocular movements are intact, nares are clear, TMs are clear but retracted with no fluid, there is no conjunctival pallor. Throat is clear without any exudates, mild bilateral erythema, no tonsillar enlargement or uvular deviation HEART: Regular rate and rhythm without murmur, clicks, rubs. pulses are equal in upper and lower extremities. No edema bilateral lower extremities. LUNGS:Lungs clear to auscultation, no wheezes, rales, crackles, chest moves symmetrically, no tachypnea, no accessory muscle use. Speaks in full sentences. ABD:bowel sounds normal, soft, non-tender, no guarding, rebound, rigidity, no masses noted, no hepatosplenomegaly :No CVA tenderness MSCL: Non-tender, no muscle atrophy, muscles strength 5/5 upper and lower extremities, full range of motion NEURO:CN 2-12 intact, sensation normal, patient does have some baseline tremor in the left upper extremity. Initial Vital Signs Initial Vital Signs: Vital Signs Temperature 98.1 F 09/21/23 20:26 Pulse Rate 97 H 09/21/23 20:26 Respiratory Rate 20 09/21/23 20:26 Blood Pressure 143/86 H 09/21/23 20:26 Pulse Oximetry 96 09/21/23 20:26 Oxygen Delivery Method Room Air 09/21/23 20:26 Course Orders Ordered: ED Orders 09/21/23 20:50 XR chest 1V Stat EKG-12 Lead Stat 09/21/23 20:53 BNP [NT-proBNP (BNP-Adult 18+)] Stat Complete Blood Count AUTO DIFF Stat Comprehensive Metabolic Panel Stat Lipase Stat Magnesium Stat PTT Partial Thromboplastin Mandeep Stat Prothrombin Time INR Stat Troponin & CK Cardiac Panel Stat 09/21/23 21:29 Strep Grp A by PCR Rapid Stat Throat Culture Stat 09/21/23 23:00 Trop I [Troponin I] Stat Discontinued Medications Acetaminophen (Acetaminophen 325 Mg Tablet) 975 mg PO NOW ONE Stop: 09/21/23 23:39 Last Admin: 09/21/23 23:49 Dose: 975 mg Documented By: SB Vital Signs Vital signs: Vital Signs - 8 hr 09/21/23 20:26 09/21/23 20:48 09/21/23 21:00 Temperature 98.1 F Pulse Rate 97 H 90 92 H Respiratory Rate 20 24 28 H Blood Pressure 143/86 H Pulse Oximetry 96 97 Oxygen Delivery Method Room Air 09/21/23 21:00 09/21/23 21:30 09/21/23 21:31 Temperature Pulse Rate 81 83 Respiratory Rate 22 23 Blood Pressure 138/84 Pulse Oximetry 94 94 Oxygen Delivery Method 09/21/23 21:33 09/21/23 21:33 09/21/23 22:00 Temperature Pulse Rate 82 91 H Respiratory Rate 23 Blood Pressure 118/69 Pulse Oximetry 95 97 Oxygen Delivery Method Room Air 09/21/23 22:30 09/21/23 22:30 09/21/23 23:00 Temperature Pulse Rate 76 Respiratory Rate 22 Blood Pressure 130/83 143/87 H Pulse Oximetry 95 Oxygen Delivery Method 09/21/23 23:00 09/21/23 23:30 09/22/23 00:00 Temperature Pulse Rate 75 83 Respiratory Rate 23 20 Blood Pressure 145/84 H Pulse Oximetry 95 95 Oxygen Delivery Method Room Air Room Air 09/22/23 00:00 Temperature Pulse Rate Respiratory Rate Blood Pressure 152/98 H Pulse Oximetry Oxygen Delivery Method MDM - SOB/Dyspnea Lab Data 09/21/23 20:53 09/21/23 20:53 Labs: Lab Results 09/21/23 09/21/23 09/21/23 Range/Units 20:53 21:29 23:00 WBC 6.7 (4.5-11.0) X10^3/uL RBC 5.39 (4.5-5.9) X10^6/uL Hgb 14.7 (13.5-17.5) g/dL Hct 42.3 (41-53) % MCV 78.5 L (80-100) fL MCH 27.4 (26-34) PG MCHC 34.9 (30-36) % RDW 14.5 (11.6-14.8) % Plt Count 252 (150-400) X10^3/uL Neut % (Auto) 65.6 (50-75) % Lymph % (Auto) 22.2 L (25-40) % Taney % (Auto) 11.5 (3-14) % Eos % (Auto) 0.3 L (2-4) % Baso % (Auto) 0.4 (0-2) % Neut # (Auto) 4400 (0775-9623) /uL Lymph # (Auto) 1500 (0805-1764) /uL Taney # (Auto) 800 (0-900) /uL Eos # (Auto) 0 (0-450) /uL Baso # (Auto) 0 (0-100) /uL PT 12.2 (9.4-12.5) SECONDS INR 1.1 (0.9-1.3) APTT 33 (25.1-36.5) SECONDS Sodium 136 L (137-145) mmol/L Potassium 3.5 (3.4-5.1) mmol/L Chloride 103 (98-107) mmol/L Carbon Dioxide 20 L (22-32) mmol/L BUN 16 (9-20) mg/dL Creatinine 0.59 L (0.66-1.25) mg/dL Estimated GFR > 60 (>60) mL/min BUN/Creatinine Ratio 27.1 H (6-22) Glucose 145 H (70-100) mg/dL Calcium 9.4 (8.4-10.2) mg/dL Magnesium 1.6 (1.6-2.3) mg/dL Total Bilirubin 1.0 (0.2-1.3) mg/dL AST 37 (17-59) IU/L ALT 42 (<50) IU/L Alkaline Phosphatase 133 H (38-126) U/L Total Creatine Kinase 162 (55-170) U/L Troponin I < 0.012 < 0.012 (0.01-0.034) ng/mL NT-Pro-B Natriuret Pep 21 (<125) pg/mL Total Protein 8.0 (6.3-8.2) g/dL Albumin 4.2 (3.5-5.0) g/dL Globulin 3.8 (1.7-4.1) g/dL Albumin/Globulin Ratio 1.1 (1.0-2.8) Lipase 124 (23-300) U/L Group A Strep (PCR) Negative (Negative) Point of Care Testing Glucose POC 143 Imaging Data Chest x-ray: Radiologist's Impression: Augustin Carmichael??53??M??1970 ? Allergy/Adv: celecoxib Close Chest X-Ray (Signed) Rajan Delarosa - 09/21/23 Chest X-Ray (Signed) Jonnie Pressley - 09/18/23 Ankle X-Ray (Signed) Brian Elaine - 03/13/23 Chest CTA (Signed) Rajan Delarosa - 12/04/22 Chest X-Ray (Signed) Jeffrey Chan - 12/04/22 Abdomen/Pelvis CT (Signed) Rajan Delarosa - 12/04/22 Chest X-Ray (Signed) DarenIsrael - 12/02/22 Chest X-Ray (Signed) MarshCastro abdulel - 11/18/22 Cervical Spine X-Ray (Signed) Radha Patino - 06/03/22 Shoulder X-Ray (Signed) Jeffrey Chan - 04/25/22 Chest X-Ray (Signed) Marquise Cabrera - 02/21/22 Lumbar Spine X-Ray (Signed) Brian Elaine - 10/24/20 Telemetry Strips 08/10/20 Chest/Abdomen/Pelvis CT (Signed) Claire Delarosa - 08/09/20 Chest X-Ray (Signed) Kacie Wellington - 08/09/20 Chest X-Ray (Signed) Radha Patino - 09/10/19 Carotid Doppler Study (Signed) Radha Patino - 09/10/19 Ankle X-Ray (Signed) Brijesh Salgado - 06/15/19 Foot X-Ray (Signed) Tony Pittman - 09/01/18 Ribs X-Ray (Signed) Anna Ricks - 01/11/18 Launch?[place] [address] XRay Report Signed Patient: Augustin Carmichael MR#: [id number] : 1970 Acct:[id number] Age/Sex: 53 / M Date of Service: 09/21/23 Loc: ED Accession Number: [id number] Procedure: XR chest 1V Ordering Provider: Cheryle Palma D.O. PROCEDURE: XR CHEST 1V INDICATIONS: chest pain TECHNIQUE: One view of the chest was acquired. COMPARISON: [facility], CR, XR CHEST 2V, 09/18/2023, 12:52. [facility], CR, XR CHEST 1V, 12/04/2022, 2:30. FINDINGS: Surgical changes and devices: None. Lungs and pleura: Lungs are clear. No pleural effusions or pneumothorax. Mediastinum: Mediastinal contours appear normal. Heart size is normal. Bones and chest wall: No suspicious bony lesions. Overlying soft tissues appear unremarkable. IMPRESSION: No acute cardiopulmonary abnormality is seen. Dictated by: Rajan Delarosa M.D. on 09/21/2023 at 21:15 Approved by: Rajan Delarosa M.D. on 09/21/2023 at 21:15 ECG Data Attestation: I personally reviewed and interpreted this ECG as follows: Prior ECG tracings: available for review Interpretation: Sinus rhythm rate 88 OK 150 QRS of 90 [address]TC [address]. No acute ST elevation, no clear ST elevation or depression. Some nonspecific change. EKG 2. Sinus rhythm at 75 OK 148 QRS 88 QTC 453. No acute changes from prior earlier this evening. MDM Narrative Medical decision making narrative: 53-year-old male with known active influenza a infection symptoms started approximately a week ago tested positive on Friday. Patient has had persistent myalgias, sweats, he describes sore throat. Patient states he is also developed some chest pain shortness of breath which is substernal worse when he lays flat. And has a dry productive cough. Likely secondary to patient's influenza but patient does have multiple risk factors with diabetes, hypertension, dyslipidemia, obesity plan for cardiac workup with labs, EKG and chest x-ray. Patient asked about strep swab and this was included as well. Chest x-ray shows no acute change. EKG shows no ST elevation or depression, has some nonspecific change, no dynamic changes on repeat. Labs CBC shows no elevation white count platelets are 252 hemoglobin is 14.7, coags are negative. Chemistry shows sodium 136 CO2 of 20, creatinine 0.59 glucose of 145 with normal renal function electrolytes. Alk-phos is 133 bilirubin and LFTs are negative. Troponin is negative. BNP is negative at 21. repeat troponin is negative. negative strep. Discharge Plan Departure Patient Disposition: Home Clinical Impression: Atypical chest pain, Influenza A Activity Restrictions/Additional Instructions: Please follow up for recheck with your physician. Continue your home medications as prescribed. Can take Tylenol up to a 1000 mg every 6 hours as needed for pain. Please return for fevers, worsening chest pain or shortness of breath, new lightheadedness or passing out, new swelling in her extremities or other new or concerning changes. Prescriptions: No Action benzonatate 100 mg capsule 200 mg PO BID PRN (Reason: cough) Qty: 20 0RF simvastatin 10 MG tablet 10 mg PO DAILY Qty: 0 Patient Comments: takes in the afternoon when home from work loratadine 10 MG tablet 10 mg PO DAILY Qty: 0 Patient Comments: takes in the afternoon when home from work omeprazole 20 mg Capsule,Delayed Release(Dr/Ec) 40 mg PO DAILY Patient Comments: takes in the afternoon when home from work lisinopril 10 mg Tablet 10 mg PO DAILY metformin 500 mg Tablet 2,000 mg PO DAILY meclizine 12.5 mg Tablet 25 mg PO DAILY insulin degludec [Tresiba FlexTouch U-100] 100 unit/mL (3 mL) Insulin Pen 80 unit subcut DAILY Qty: 0 0RF Patient Comments: takes in the afternoon when home from work carbidopa-levodopa 25 MG/100 MG tablet 50 - 200 mg PO 4XD Rx Instructions: 0300, 0900, 1500, 2100 duloxetine 60 mg PO DAILY insulin aspart U-100 [Novolog FlexPen U-100 Insulin] 100 UNIT/1 ML insulin pen 30 unit SQ BID Patient Comments: takes in the afternoon when home from work Referrals: Rachael Charles MD [Primary Care Provider] - Stand Alone Forms: Patient Portal/API
[2023-09-21 21:05] LABS: Add Manual Diff / Slide Review NO; Basophils Absolute Auto 0 /uL (0-100); Basophils Percent Auto 0.4 % (0-2); Eosinophils Absolute Auto 0 /uL (0-450); Eosinophils Percent Auto 0.3 % (2-4); Hematocrit 42.3 % (41-53); Hemoglobin 14.7 g/dL (13.5-17.5); Lymphocytes Absolute Auto 1500 /uL (1100-4500); Lymphocytes Percent Auto 22.2 % (25-40); Mean Corpuscular HGB Conc 34.9 % (30-36); Mean Corpuscular Hemoglobin 27.4 PG (26-34); Mean Corpuscular Volume 78.5 fL (80-100); Monocytes Absolute Auto 800 /uL (0-900); Monocytes Percent Auto 11.5 % (3-14); Neutrophils Absolute Auto 4400 /uL (1500-7000); Neutrophils Percent Auto 65.6 % (50-75); Platelet Count 252 X10^3/uL (150-400); Red Blood Cell Count 5.39 X10^6/uL (4.5-5.9); Red Cell Distribution Width 14.5 % (11.6-14.8); White Blood Cell Count 6.7 X10^3/uL (4.5-11.0)
[2023-09-21 21:15] LABS: PTT Partial Thromboplastin Tim 33 SECONDS (25.1-36.5)
[2023-09-21 21:18] LABS: Alanine Aminotransferase 42 IU/L (<50); Albumin 4.2 g/dL (3.5-5.0); Albumin Globulin Ratio 1.1 (1.0-2.8); Alkaline Phosphatase 133 U/L (38-126); Aspartate Aminotransferase 37 IU/L (17-59); BUN Creatinine Ratio 27.1 (6-22); Blood Urea Nitrogen 16 mg/dL (9-20); Calcium 9.4 mg/dL (8.4-10.2); Carbon Dioxide 20 mmol/L (22-32); Chloride 103 mmol/L (98-107); Creatine Kinase 162 U/L (55-170); Estimated Glomerular Filt Rate > 60 mL/min (>60); Globulin 3.8 g/dL (1.7-4.1); Glucose 145 mg/dL (70-100); HEMOLYSIS 16 (0-50); Lipase 124 U/L (23-300); Magnesium 1.6 mg/dL (1.6-2.3); Potassium 3.5 mmol/L (3.4-5.1); Sodium 136 mmol/L (137-145)
[2023-09-21 21:27] LABS: INR 1.1 (0.9-1.3); Prothrombin Time 12.2 SECONDS (9.4-12.5)
[2023-09-21 21:29] LABS: Troponin I < 0.012 ng/mL (0.01-0.034)
[2023-09-21 21:48] LABS: Strep Grp A by PCR Rapid Negative (Negative)
[2023-09-21 21:52] LABS: NT-proBNP (BNP-Adult 18+) 21 pg/mL (<125)
[2023-09-21 23:41] LABS: Troponin I < 0.012 ng/mL (0.01-0.034)
[2023-09-21] MEDS: ACETAMINOPHEN 325 MG TABLET 975 MG PO (23:49)
[2023-09-22] VITALS: BP 152/98; PULSE 83; RESP 20; O2SAT 95
== END 2023-09-22 00:09 | disposition home or self-care (01) ==
PROVIDERS: Emergency Provider Emergency Medicine; PCP Family Medicine
DX: J10.1 Influenza due to other identified influenza virus with other respiratory manifestations (principal); R07.89 Other chest pain; R06.02 Shortness of breath; Z79.01 Long term (current) use of anticoagulants; Z79.899 Other long term (current) drug therapy
CPT/HCPCS: 36415; 71045; 80053; 82550; 82962; 83690; 83735; 83880; 84484; 85025; 85610; 85730; 87070; 87147; 87651; 93005; 99284

== ENCOUNTER → 2024-09-07 13:31 | Outpatient (CLI) | payer MEDICAID, OTHER, SELFPAY ==
[2022-12-04 13:39] VITALS: BMI 44.4
--- NOTE | 2024-09-07 13:33 | DI.RAD.S_ITS ---
PROCEDURE: XR CHEST 2V INDICATIONS: Acute cough TECHNIQUE: 2 views of the chest were acquired. COMPARISON: [facility], CR, XR CHEST 1V, 09/21/2023, 20:53. FINDINGS: Surgical changes and devices: None. Lungs and pleura: Lungs are clear. No pleural effusions or pneumothorax. Mediastinum: Mediastinal contours are normal. Heart size is normal. Bones and chest wall: No suspicious bony abnormalities. Soft tissues appear unremarkable. IMPRESSION: No acute cardiopulmonary abnormality is seen. Dictated by: Israel Mercedes M.D. on 09/08/2024 at 12:16 Approved by: Israel Mercedes M.D. on 09/08/2024 at 12:17
== END ==
PROVIDERS: PCP Family Medicine; Referring Provider Family Medicine; Visit Provider Family Medicine
DX: R05.1 Acute cough (principal)
CPT/HCPCS: 71046

== ENCOUNTER → 2024-11-04 16:06 | Outpatient (CLI) | payer OTHER, SELFPAY ==
[2022-12-04 13:39] VITALS: BMI 44.4
--- NOTE | 2024-11-04 16:08 | DI.RAD.S_ITS ---
PROCEDURE: XR CHEST 2V INDICATIONS: Chest pain, unspecified TECHNIQUE: 2 views of the chest were acquired. COMPARISON: [facility], CR, XR CHEST 2V, 09/07/2024, 13:40. FINDINGS: Surgical changes and devices: None. Lungs and pleura: Lungs are clear. No pleural effusions or pneumothorax. Mediastinum: Mediastinal contours are normal. Heart size is normal. Bones and chest wall: No suspicious bony abnormalities. Soft tissues appear unremarkable. IMPRESSION: No acute cardiopulmonary abnormality is seen. Dictated by: Pedro Luis Sol M.D. on 11/06/2024 at 8:09 Approved by: Pedro Luis Sol M.D. on 11/06/2024 at 8:10
== END ==
LOC: RAD 16:07
PROVIDERS: PCP Family Medicine; Referring Provider Family Medicine; Visit Provider Family Medicine
DX: R07.9 Chest pain, unspecified (principal)
CPT/HCPCS: 71046

== ENCOUNTER → 2024-12-02 14:13 | Outpatient (CLI) | payer MEDICAID, OTHER, SELFPAY ==
[2022-12-04 13:39] VITALS: BMI 44.4
--- NOTE | 2024-12-02 14:16 | DI.NM.S_ITS ---
PROCEDURE: NM JEREMIE PERF SPECT SINGLE STUDY Stress only pharmacological myocardial perfusion SPECT with gated imaging and ejection fraction RADIOPHARMACEUTICAL: 25.7 mCi Tc-99m sestamibi IV at peak exercise. A 1 day-protocol was performed. INDICATIONS: CHEST PAIN PQRS ATTESTATIONS: Measure 322 - Is this imaging test primarily performed on a low-risk surgery patient for preoperative evaluation within 30 days preceding their low-risk non-cardiac surgery? Low-risk surgery is defined as cardiac or myocardial infarction less than 1%, including (but not limited to) endoscopic procedures, superficial procedures, cataract surgery, and excisional breast surgery: Answer: No Measure 323 - Is this imaging test performed primarily for the monitoring of an asymptomatic patient who had percutaneous coronary intervention on the visit date or within 2 years of the visit date? Answer: No Measure 324 - Is this imaging test performed primarily for the initial detection and risk assessment on an asymptomatic, low coronary heart disease patient? Low CHD risk definition = clinicians should consider the maximum number of available patient factors used to estimate risk based on [place] (ATP III criteria), typically age, gender, diabetes, smoking status, and use of blood pressure medication, and integrate age appropriate estimates for missing elements, such as LDL or standard blood pressure. Answer: No TECHNIQUE: Radiopharmaceutical was injected at peak stress test, and also at rest. SPECT images were obtained. SPECT myocardial perfusion images were displayed in short axis, horizontal long axis, and vertical long axis views. Gated images were reviewed using [employer] software. COMPARISON: None. CARDIAC STRESS: Patient received 0.4 mg of Lexiscan. No chest pains voiced. Normal heart rate and blood pressure response to Lexiscan infusion. Occasional PVCs present. No ischemic changes noted. No chest pains voiced. No aminophylline administered. FINDINGS: Raw data: There is good myocardial labeling by radiotracer. No significant motion artifacts. Mqup-wi-bakom ratio is 0.31 (normal is less than 0.38 for sestamibi tracer, and less than 0.50 for thallium tracer). Left ventricle function: Stress gated images demonstrate normal left ventricle wall thickening. No segmental wall motion abnormality. No transient ischemic dilation; TID is not calculated (normal less than 1.3). The left ventricle resting end-diastolic volume is not calculated. Left ventricle stress ejection fraction is 76%; normal values are above 45%. Myocardial perfusion: Stress images demonstrated mild hypoperfusion in the basal to mid inferior segment. Prone images had no perfusion defects. Rest images were not obtained. IMPRESSION: 1. Negative Lexiscan myocardial perfusion scan for ischemia and infarction. Dictated by: Jose Alvarez M.D. on 12/17/2024 at 16:47 Approved by: Jose Alvarez M.D. on 12/17/2024 at 16:50
== END ==
LOC: NUCM 14:15
PROVIDERS: PCP Family Medicine; Referring Provider Family Medicine; Visit Provider Family Medicine
DX: R07.9 Chest pain, unspecified (principal)
CPT/HCPCS: 78451; 93017; A9502

== ENCOUNTER → 2025-02-22 08:10 | Outpatient (CLI) | payer OTHER, SELFPAY ==
[2022-12-04 13:39] VITALS: BMI 44.4
--- NOTE | 2025-02-22 08:13 | DI.US.S_ITS ---
PROCEDURE: US RENAL COMPLETE INDICATIONS: Urinary tract infection per notes TECHNIQUE: Real-time scanning was performed of the kidneys and bladder, with image documentation. COMPARISON: None. FINDINGS: Kidneys: Mildly prominent left renal pelvis, possible mild left hydronephrosis, pattern of obstruction although extrarenal pelvis variant could have a similar appearance. Kidneys are normal in size. Right kidney measures 12.8 cm long; left kidney measures 13.8 cm long. Right renal cortical thickness is 1.7 cm; left renal cortical thickness is 2.0 cm. Renal cortical echotexture is normal. No right hydronephrosis, no nephrolithiasis. No ultrasound evidence of solid mass lesion. Bladder: The bladder is not distended. Miscellaneous: No free pelvic fluid. IMPRESSION: Mild left hydronephrosis versus extrarenal pelvis variant or other pattern of obstruction. If symptoms persist or worsen, or there is high clinical suspicion of ureteral calculus or other abnormality, CT KUB could be performed. Dictated by: Yasir Blandon M.D. on 02/22/2025 at 9:00 Approved by: Yasir Blandon M.D. on 02/22/2025 at 9:03
== END ==
PROVIDERS: PCP Nurse Practitioner Family; Referring Provider Nurse Practitioner Family; Visit Provider Nurse Practitioner Family
DX: N39.0 Urinary tract infection, site not specified (principal); R39.11 Hesitancy of micturition
CPT/HCPCS: 76770

== ENCOUNTER → 2025-02-25 11:58 | Outpatient (CLI) | payer OTHER, SELFPAY ==
[2022-12-04 13:39] VITALS: BMI 44.4
--- NOTE | 2025-02-25 12:00 | DI.CT.S_ITS ---
PROCEDURE: CT KIDNEY URETER BLADDER (KUB) INDICATIONS: HYDRONEPHROSIS TECHNIQUE: Axial sections were acquired from the lung bases to the pubic symphysis. Coronal and sagittal reformats were performed. For radiation dose reduction, the following was used: automated exposure control, adjustment of mA and/or kV according to patient size. COMPARISON: [facility], US, US RENAL COMPLETE, 02/22/2025, 8:29. [facility], CT, CT ABDOMEN PELVIS WITH CONTRAST, 02/02/2025, 17:01. FINDINGS: Image quality: Diagnostic. Lower Chest: No significant findings. URINARY: Right Kidney: No stones or hydronephrosis. Right Ureter: No hydroureter. Left Kidney: No stones or hydronephrosis. Left Ureter: No hydroureter. Bladder: Normal wall thickness. No stones. ABDOMEN: Liver: No contour-deforming solid mass. Gallbladder: Prior cholecystectomy. Biliary ducts: No biliary dilation. Pancreas: No ductal dilation. Spleen: Size is within normal limits. Adrenal Glands: No adrenal nodules. Stomach and Bowel: Normal colonic caliber, without significant wall thickening. Peritoneum: No abnormal intraperitoneal fluid. No free air. Ventral Wall: No hernia. Abdominal Nodes: No enlarged retroperitoneal or mesenteric lymph nodes. Vessels: Aorta and inferior vena cava are normal in size. PELVIS: Pelvic Organs: Unremarkable. Pelvic Nodes: Unremarkable. Miscellaneous: No inguinal hernias are seen. Bones: Unremarkable. IMPRESSION: No obstructing stones or hydronephrosis. Prior cholecystectomy. Left renal pelvis is slightly larger than that on the right but this is in the normal anatomic variation range. No follow-up of that appearance is recommended. Dictated by: Brijesh Salgado M.D. on 02/25/2025 at 13:55 Approved by: Brijesh Salgado M.D. on 02/25/2025 at 14:00
== END ==
PROVIDERS: PCP Nurse Practitioner Family; Referring Provider Nurse Practitioner Family; Visit Provider Nurse Practitioner Family
DX: N13.30 Unspecified hydronephrosis (principal); R35.0 Frequency of micturition; R30.0 Dysuria; Z90.49 Acquired absence of other specified parts of digestive tract
CPT/HCPCS: 74176

== ENCOUNTER 2025-03-23 09:37 | Emergency (ER) | payer OTHER, SELFPAY ==
[2022-12-04 13:39] VITALS: BMI 44.4
[2025-03-23 09:45] VITALS: BP 134/102; PULSE 92; RESP 14; TEMP 36.1; O2SAT 97; BMI 38.3
--- NOTE | 2025-03-23 10:38 | DI.RAD.S_ITS ---
PROCEDURE: XR CHEST 1V INDICATIONS: gen weak TECHNIQUE: One view of the chest was acquired. COMPARISON: [facility], CR, XR CHEST 2V, 09/07/2024, 13:40. [facility], CR, XR CHEST 2V, 11/04/2024, 16:10. FINDINGS: Surgical changes and devices: None. Lungs and pleura: An incomplete inspiratory result is noted, causing a crowded appearance to the lung markings. No focal infiltrates are seen. No pneumothorax or significant pleural effusions are seen. Mediastinum: Mediastinal contours appear normal. Heart size is normal. Bones and chest wall: No suspicious bony lesions. Age-appropriate bony degenerative changes are seen. Overlying soft tissues appear unremarkable. IMPRESSION: Low lung volumes, without an acute abnormality seen by plain film. No focal infiltrates are seen. Dictated by: Jey Ureña M.D. on 03/23/2025 at 10:02 Approved by: Jey Ureña M.D. on 03/23/2025 at 10:03
--- NOTE | 2025-03-23 10:39 | ED.EXTPRO ---
HPI - Extremity Problem General Chief complaint: Extremity Problem,Nontraumatic Stated complaint: Body aches all over x2 weeks Time Seen by Provider: 03/23/25 10:31 Source: patient Mode of arrival: Ambulatory History of Present Illness HPI Narrative: This is a 55-year-old male with type 2 diabetes, rheumatoid arthritis and Parkinson's. He is here complaining of 2 weeks of generalized body pain. Primarily in his joints hands and wrists and feet are affected particularly. He is followed by Rheumatology, Dr. Celestin who gave him a steroid injection on the 17 of March. Patient states his symptoms have not improved. Also says that he is on Humira and leflunomide. He has not had any fevers he does not have a cough or shortness of breath no urinary symptoms although does have a little bit of flank pain on both sides. Has not had nausea or vomiting. Does not believe that he can take NSAIDs secondary to interactions with other medications that he is on. Was on prednisone recently but not presently on any prednisone. Related Data Home Medications ?Medication ?Instructions ?Recorded ?Confirmed simvastatin 10 mg tablet 10 mg PO DAILY ##0 03/19/17 09/18/23 loratadine 10 mg tablet 10 mg PO DAILY ##0 09/02/17 09/18/23 omeprazole 20 mg capsule,delayed 40 mg PO DAILY 09/11/18 09/18/23 release lisinopril 10 mg tablet 10 mg PO DAILY 08/10/20 09/18/23 meclizine 12.5 mg tablet 25 mg PO DAILY 08/10/20 09/18/23 metformin 500 mg tablet 2,000 mg PO DAILY 08/10/20 09/18/23 carbidopa-levodopa 50 - 200 mg PO 4XD 11/18/22 09/18/23 duloxetine 60 mg PO DAILY 11/18/22 09/18/23 insulin aspart U-100 100 unit/mL 30 unit SQ BID 12/04/22 09/18/23 (3 mL) subcutaneous pen (Novolog FlexPen U-100 Insulin aspart) Previous Rx's ?Medication ?Instructions ?Recorded insulin degludec 100 unit/mL (3 80 unit (0.8 mL) SUBCUT DAILY #0 mL 08/12/20 mL) subcutaneous pen (Tresiba FlexTouch U-100 insulin) benzonatate 100 mg capsule 200 mg (2 x 100 mg) PO BID PRN 09/18/23 cough #20 caps oxycodone 5 mg capsule 5 mg PO Q6H PRN pain #10 caps 03/23/25 prednisone 20 mg tablet 20 mg PO DAILY #30 tabs 03/23/25 Allergies Allergy/AdvReac Type Severity Reaction Status Date / Time celecoxib (CELECOXIB) AdvReac Mild MADE MY Verified 03/23/25 09:45 HEART HURT Patient History Medical History (Updated 03/23/25 @ 13:09 by Pb Do MD) Cellulitis (09/07/18) Hemochromatosis Multifocal PVCs Ectodermal dysplasia Generalized anxiety disorder Retinoschisis Diverticulosis Osteoarthritis Abnormal liver function tests Alcohol dependence Arthritis Former smoker Sleep apnea Seasonal allergies HTN (hypertension) Hyperlipidemia Insulin dependent diabetes mellitus with complications Surgical History Hx of arthroscopy of left knee (03/19/17) History of hip surgery Status post cholecystectomy Social History household members: spouse and children Smoking Status: Current every day smoker alcohol intake: current eating out: 4 or more times/week Type(s) of exercise: none Smoking Status: Current every day smoker tobacco type: cigarettes alcohol intake frequency: 0-2 drinks per day Exam Initial Vital Signs Initial Vital Signs: Vital Signs Temperature 97.0 F L 03/23/25 09:45 Pulse Rate 92 H 03/23/25 09:45 Respiratory Rate 14 03/23/25 09:45 Blood Pressure 134/102 H 03/23/25 09:45 Pulse Oximetry 97 03/23/25 09:45 Oxygen Delivery Method Room Air 03/23/25 09:45 vital signs are reviewed Const General: cooperative HENMT Head: normocephalic and atraumatic Face and sinus: face symmetric Mouth: moist mucous membranes Neck Neck: normal visual inspection, supple and No JVD Chest Chest: normal inspection of the chest Resp Effort & Inspection: normal respiratory effort and able to speak in complete sentences Auscultation: clear to auscultation bilaterally Cardio Rate: regular rate Rhythm: regular rhythm Heart Sounds: no murmurs Other: Normal heart rate GI Inspection: normal to inspection Palpation: soft Auscultation: normal bowel sounds Skin General: no rashes or lesions noted and warm Neuro General: patient alert, patient oriented x3 and moves all extremities Speech: speech normal Extrem Other: Hands and wrists are swollen and slightly warm. No deformity noted. They are tender. He has good active range of motion, knees do not appear to be swollen. Course Course Course Narrative: 55-year-old diabetic with diffuse body pain, rheumatoid arthritis and on immunosuppressant medications. He is having an acute flare of his pain. Vital signs are stable, thus far I do not think that he has not an acute infection but I am going to evaluate basic labs as well as getting sed rate and a C-reactive protein. I am going to contact his felt pad cutter who apparently referred him to the emergency department. Orders Ordered: ED Orders 03/23/25 10:38 Chest [XR chest 1V] Stat 03/23/25 10:55 CBC Auto Diff [Complete Blood Count AUTO DIFF] Stat CMP [Comprehensive Metabolic Panel] Stat CRP [C-Reactive Protein Quant] Stat ESR [Erythrocyte Sedimentation Rate] Stat 03/23/25 11:00 Urinalysis and Microscopic Stat Urine Culture Stat Discontinued Medications Oxycodone HCl (Oxycodone Ir 5 Mg Tablet) 5 mg PO NOW ONE Stop: 03/23/25 10:39 Last Admin: 03/23/25 10:44 Dose: 5 mg Documented By: CTS Consultations Consultation #1: At 10:55 a.m., case is discussed with Dr. Celestin, the patient's felt pad cutter. He got a Kenalog injection, this has not seemed to be helpful unfortunately Dr. Celestin had no other acute concerns and recommends that we start him on prednisone, we will start on 40 mg a day x2 days and then decrease to 20 mg a day which he will continue until he can see Dr. Celestin. Patient will need to be advised to watch his blood sugars as he is a diabetic. Vital Signs Vital signs: Vital Signs - 8 hr 03/23/25 09:45 Temperature 97.0 F L Pulse Rate 92 H Respiratory Rate 14 Blood Pressure 134/102 H Pulse Oximetry 97 Oxygen Delivery Method Room Air MDM - Extremity (Nontraumatic) Lab Data 03/23/25 10:55 03/23/25 10:55 Labs: Lab Results 03/23/25 03/23/25 Range/Units 10:55 11:00 WBC 5.8 (4.5-11.0) X10^3/uL RBC 5.39 (4.5-5.9) X10^6/uL Hgb 14.7 (13.5-17.5) g/dL Hct 43.5 (41-53) % MCV 80.7 (80-100) fL MCH 27.2 (26-34) PG MCHC 33.7 (30-36) % RDW 16.4 H (11.6-14.8) % Plt Count 240 (150-400) X10^3/uL Neut % (Auto) 76.4 H (50-75) % Lymph % (Auto) 10.0 L (25-40) % Cook % (Auto) 11.6 (3-14) % Eos % (Auto) 0.9 L (2-4) % Baso % (Auto) 1.1 (0-2) % Neut # (Auto) 4400 (9608-9739) /uL Lymph # (Auto) 600 L (2511-1341) /uL Cook # (Auto) 700 (0-900) /uL Eos # (Auto) 100 (0-450) /uL Baso # (Auto) 100 (0-100) /uL ESR 31 H (0-15) MM/HR Sodium 137 (137-145) mmol/L Potassium 3.8 (3.4-5.1) mmol/L Chloride 105 (98-107) mmol/L Carbon Dioxide 21 L (22-32) mmol/L BUN 15 (9-20) mg/dL Creatinine 0.63 L (0.66-1.25) mg/dL Estimated GFR > 60 (>60) mL/min BUN/Creatinine Ratio 23.8 H (6-22) Glucose 122 H (70-99) mg/dL Calcium 9.1 (8.4-10.2) mg/dL Total Bilirubin 1.1 (0.2-1.3) mg/dL AST 42 (17-59) IU/L ALT 27 (<50) IU/L Alkaline Phosphatase 125 (38-126) U/L C-Reactive Protein 3.0 H (<1.0) mg/dL Total Protein 8.4 H (6.3-8.2) g/dL Albumin 4.6 (3.5-5.0) g/dL Globulin 3.8 (1.7-4.1) g/dL Albumin/Globulin Ratio 1.2 (1.0-2.8) Urine Color Yellow Urine Appearance Cloudy Urine pH 5.0 (4.5-8.0) Ur Specific [place] 1.015 (1.000-1.035) Urine Protein Trace H (Negative) Urine Glucose (UA) 3+ H (Negative) g/dL Urine Ketones 3+ H (NEGATIVE) Urine Occult Blood Trace-intact (Negative) Urine Nitrate Negative (Negative) Urine Bilirubin Negative (NEGATIVE) Urine Urobilinogen 1.0 (0.2) E.U./dL Ur Leukocyte Esterase Trace H (NEGATIVE) Urine RBC 1-5/hpf D (0-5/HPF) Urine WBC 5-10/hpf H (0-5/HPF) Ur Squamous Epith Cells 1-5 /hpf (0-5/HPF) Urine Bacteria None seen (None) Urine Yeast 5-10/hpf H (None) Ur Culture Indicated? Specimen cultured Vol Urine Centrifuged 10ml (spun) MDM Narrative Medical decision making narrative: 55-year-old male with polyarthralgias and a history of rheumatoid arthritis. He is not febrile, urinalysis is reviewed, at this point he is not having urinary symptoms and I am not going to treat. Started him on prednisone after discussion with rheumatology wrote a prescription for just few oxycodone. He is to follow up his felt pad cutter. Discharge Plan Departure Patient Disposition: Home Clinical Impression: Polyarthralgia, Rheumatoid arthritis flare Activity Restrictions/Additional Instructions: We are going to discharge her to home today. I have sent a prescription to your pharmacy for prednisone course. I would like him to take 40 mg a day for 2 days and then decrease to 20 mg a day and continue this until you can see Dr. Celestin. Make an appointment to see him soon. You can use acetaminophen for pain, I also sent a prescription for just a few oxycodone that you can also use as needed for pain. Use this sparingly and watch out for constipation. If you develop fevers shaking chills shortness of breath or other acute symptoms recheck in the emergency department. The prednisone may make her blood sugars go higher. Check your blood sugars and use your insulin as needed. Follow up as soon as possible with your felt pad cutter Prescriptions: New oxycodone 5 mg capsule 5 mg PO Q6H PRN (Reason: pain) Qty: 10 0RF prednisone 20 mg tablet 20 mg PO DAILY Qty: 30 0RF Rx Instructions: Start with 2 tabs daily for 2 days in the decrease to 1 tab a day and continue this until you see your felt pad cutter No Action benzonatate 100 mg capsule 200 mg PO BID PRN (Reason: cough) Qty: 20 0RF simvastatin 10 MG tablet 10 mg PO DAILY Qty: 0 Patient Comments: takes in the afternoon when home from work loratadine 10 MG tablet 10 mg PO DAILY Qty: 0 Patient Comments: takes in the afternoon when home from work omeprazole 20 mg Capsule,Delayed Release(Dr/Ec) 40 mg PO DAILY Patient Comments: takes in the afternoon when home from work lisinopril 10 mg Tablet 10 mg PO DAILY metformin 500 mg Tablet 2,000 mg PO DAILY meclizine 12.5 mg Tablet 25 mg PO DAILY insulin degludec [Tresiba FlexTouch U-100] 100 unit/mL (3 mL) Insulin Pen 80 unit subcut DAILY Qty: 0 0RF Patient Comments: takes in the afternoon when home from work carbidopa-levodopa 25 MG/100 MG tablet 50 - 200 mg PO 4XD Rx Instructions: 0300, 0900, 1500, 2100 duloxetine 60 mg PO DAILY insulin aspart U-100 [Novolog FlexPen U-100 Insulin] 100 UNIT/1 ML insulin pen 30 unit SQ BID Patient Comments: takes in the afternoon when home from work Referrals: Cecilia Noe ARNP [Primary Care Provider, Nursing] Stand Alone Forms: Patient Portal/API
[2025-03-23] MEDS: OXYCODONE IR 5 MG TABLET PO (10:44)
[2025-03-23 11:04] LABS: Appearance Urine UA CLOUDY; Bilirubin Urine UA NEGATIVE (NEGATIVE); Color Urine UA YELLOW; Glucose Urine UA 3+ g/dL (Negative); Ketones Urine UA 3+ (NEGATIVE); Leukocyte Esterase Urine UA TRACE (NEGATIVE); Nitrite Urine UA NEGATIVE (Negative); Occult Blood Urine UA TRACE-INTACT (Negative); Protein Urine UA TRACE (Negative); Specific Gravity Urine UA 1.015 (1.000-1.035); Urobilinogen Urine UA 1.0 E.U./dL (0.2); pH Urine UA 5.0 (4.5-8.0)
[2025-03-23 11:08] LABS: Culture Indicated Urine Specimen Cultured
[2025-03-23 11:14] LABS: Add Manual Diff / Slide Review NO; Hematocrit 43.5 % (41-53); Hemoglobin 14.7 g/dL (13.5-17.5); Lymphocytes Absolute Auto 600 /uL (1100-4500); Mean Corpuscular HGB Conc 33.7 % (30-36); Mean Corpuscular Hemoglobin 27.2 PG (26-34); Mean Corpuscular Volume 80.7 fL (80-100); Platelet Count 240 X10^3/uL (150-400)
[2025-03-23 11:21] LABS: Alanine Aminotransferase 27 IU/L (<50); Albumin 4.6 g/dL (3.5-5.0); Albumin Globulin Ratio 1.2 (1.0-2.8); Alkaline Phosphatase 125 U/L (38-126); Blood Urea Nitrogen 15 mg/dL (9-20); Calcium 9.1 mg/dL (8.4-10.2); Carbon Dioxide 21 mmol/L (22-32); Chloride 105 mmol/L (98-107); Estimated Glomerular Filt Rate > 60 mL/min (>60); Globulin 3.8 g/dL (1.7-4.1); Glucose 122 mg/dL (70-99); HEMOLYSIS 34 (0-50); Potassium 3.8 mmol/L (3.4-5.1); Sodium 137 mmol/L (137-145); Total Protein 8.4 g/dL (6.3-8.2)
[2025-03-23 13:17] VITALS: PULSE 90; O2SAT 98
[2025-03-23 13:18] VITALS: BP 126/88; PULSE 87; O2SAT 98
== END 2025-03-23 13:24 | disposition home or self-care (01) ==
PROVIDERS: Emergency Provider Emergency Medicine; PCP Nurse Practitioner Family
DX: M06.9 Rheumatoid arthritis, unspecified (principal)
CPT/HCPCS: 71045; 80053; 81001; 85025; 85651; 86140; 87077; 87086; 87147; 99283; 99284